=== PATIENT | female | born 2005 | race Caucasian/White ===

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

== ENCOUNTER 2024-02-02 17:42 | Emergency (ER) | payer OTHER, SELFPAY ==
[2024-02-02 17:48] VITALS: BP 134/87; PULSE 100; TEMP 36.8; O2SAT 98; BMI 19.7
--- OUTSIDE RECORDS SUMMARY | 2024-02-02 17:48 | XMS_ITS ---
Patient Summarization (C-CDA 2.1 CCD) Created on: February 02, 2024 CARLENE ALAMO~SATHYA CARLENE : 2005 Sex: Female Author Organization Sample organization Care Team Providers Care Instructional Material Director Name Role Phone DO Mathew Sandoval Primary Care Provider [phone] DO Mathew Hay Emergency Provider UnaMathew Haas Primary Care Unavailable Mathew Hay Attending Unavailable Mathew Hay Admitting Unavailable SHE RICHARDSON Attending Unavailable HEMMEHNAZ MAC Attending Unavailable SHE RICHARDSON Attending Unavailable MATHEW SANDOVAL Attending Unavailable MATHEW SANDOVAL Referring Unavailable MATHEW SANDOVAL Attending Unavailable MATHEW SANDOVAL Referring Unavailable KATHLEENBASERYLAN Grant Attending Unavailable MARGARITA HERR Attending Unavailable Allergies Allergy Classification Reported Allergen(s) Allergy Type Date of Onset Reaction(s) Facility (1 source) Amoxicillin Drug Allergy 11-14-2023 [facility] Repository Encounters Encounter Date Encounter Type Care Provider Facility Start: 01-13-2024 End: 01-13-2024 ambulatory SHE RICHARDSON Not Available Start: 01-06-2024 End: 01-06-2024 ambulatory MARGARITA HERR Not Available Start: 11-19-2023 End: 11-19-2023 ambulatory MATHEW SANDOVAL Not Available Start: 11-14-2023 End: 11-15-2023 Emergency department patient visit Mathew Sandoval Facility:[facility] Start: 11-14-2023 End: 11-15-2023 Emergency department patient visit DO Mathewcindy Sandoval Work Phone: [facility] Work Phone: Start: 10-18-2023 End: 10-18-2023 ambulatory SHE RICHARDSON Not Available Start: 10-15-2023 End: 10-15-2023 ambulatory MATHEW SANDOVAL Not Available Start: 09-07-2023 End: 09-07-2023 ambulatory MEHNAZ FIGUEROA Not Available Start: 08-29-2023 End: 08-29-2023 ambulatory SHE RICHARDSON Not Available Start: 07-31-2023 End: 07-31-2023 ambulatory RYLAN SMITH Not Available Start: 07-26-2023 End: 07-26-2023 ambulatory SHE RICHARDSON Not Available Start: 07-10-2023 End: 07-10-2023 ambulatory SHE RICHARDSON Not Available Medications Current Medications Medication Drug Class(es) Dates Sig (Normalized) Sig (Original) omeprazole 40 mg delayed release oral capsule (1 source) Proton Pump Inhibitor Start: 11-15-2023 take 40 mg by mouth once daily Omeprazole Active 40 MG PO Daily 20 November 15, 2023 12:00am promethazine hydrochloride 25 mg oral tablet (1 source) Phenothiazine Start: 11-15-2023 take 25 mg by mouth three times daily Promethazine Active 25 MG PO Three times daily 15 November 15, 2023 12:00am sucralfate 1000 mg oral tablet (1 source) Aluminum Complex Start: 11-15-2023 take 1 tablet by mouth twice daily Sucralfate (Carafate) 1 gram tablet Active 1 GM PO Twice daily 14 November 15, 2023 12:37am Payers Date Payer Category Payer Self-pay [id number] 2022 Unknown [id number] 2005 Unknown [id number] 2.16.84 [id number] 2004 Unknown [id number] 2.16.84 0.1.334286.3.579.2.9 2004 Unknown [id number] 2.16.84 0.1.617939.3.579.2.9 2004 Unknown [id number] 2.16.84 0.1.178215.3.579.2.1259 2004 Unknown [id number] 2.16.84 0.1.385679.3.579.2.1259 2004 Unknown [id number] 2.16.84 0.1.510986.3.579.2.9 2004 Unknown [id number] 2.16.840 .1.803294.3.579.2.1259 2004 Unknown [id number] 2.16.840 .1.597269.3.579.2.9 2004 Unknown [id number] 2.16.840 .1.206035.3.579.2.1259 2004 Unknown [id number] 2.16.840 .[id number] Unknown [id number] 2.16.8 [id number] Plan of Treatment Date Care Activity Detail Author Patient Education Migraines (DC) [facility] Work Phone: Patient referral [facility] Work Phone: Problems Problem Classification Problem Date Documented Da te Episodic/Chronic Headache; including migraine (1 source) Migraine; Translations: [Migraine, unspecified, not intractable, without status migrainosus] 11-15-2023 Chronic Nausea and vomiting (1 source) Nausea and vomiting; Translations: [Nausea with vomiting, unspecified] 11-15-2023 Episodic Results Test Name Value Interpretation Reference Range Facility Complete Blood Count Auto Di ffon 11-15-2023 Basophils (Bld) [#/Vol] 0.1 10*3/uL Normal 0.0-0.2 [facility] Comment on above: Result Comment: PERF ORMED BY: [address] [id number] PATHOLOGIST BRINE MIXER OPERATOR GIBRAN CHOU M.D. Performed By: #### C BC, CMP #### [facility] [address] [place], [place] [address] Basophils/100 WBC (Bld) 1.4 % Normal . F [facility] Comment on above: Performed By: #### C BC, CMP #### [facility] [address] Eosinophils (Bld) [#/Vol] 0.0 10*3/uL Normal 0.0-0.45 [facility] Comment on above: Performed By: #### C BC, CMP #### [facility] [address] [place] [address] [place] Eosinophils/100 WBC (Bld) 0.4 % Normal . [facility] Comment on above: Performed By: #### C BC, CMP #### [facility] [address] Erythrocyte distribution width (RBC) [Ratio] 14.2 % Normal 11.9-15.3 [facility] Comment on above: Performed By: #### C BC, CMP #### [address] Hematocrit (Bld) [Volume fraction] 39.5 % Normal 34.0-46.4 [facility] Comment on above: Performed By: #### C BC, CMP #### [place] [address] [place] Hemoglobin (Bld) [Mass/Vol] 12.9 g/dL Normal 11.8-15.4 [facility] Comment on above: Performed By: #### C BC, CMP #### [place] [address] [place] Lymphocytes (Bld) [#/Vol] 1.4 10*3/uL Normal 1.00-4.8 [facility] Comment on above: Performed By: #### C BC, CMP #### [place] [address] [place] Lymphocytes/100 WBC (Bld) 19.3 % Normal . [facility] Comment on above: Performed By: #### C BC, CMP #### [place] [address] [place] MCH (RBC) [Entitic mass] 28.4 pg Normal 24.7-34.3 [facility] Comment on above: Performed By: #### C BC, CMP #### [facility] [address] [place] [address] [place] MCV (RBC) [Entitic vol] 86.8 fL Normal 80-100 F [facility] Comment on above: Performed By: #### C BC, CMP #### [facility] [address] Mean Corpuscular HGB Conc 32.7 g/dL Normal 32.0-35.0 [facility] Comment on above: Performed By: #### C BC, CMP #### [facility] [address] [place] [address] [place] Monocytes (Bld) [#/Vol] 0.3 10*3/uL Normal 0.0-0.8 [facility] Comment on above: Performed By: #### C BC, CMP #### [facility] [address] Monocytes/100 WBC (Bld) 18.50 % Normal 0.00-20.00 F [facility] Comment on above: Performed By: #### C BC, CMP #### [facility] [address] [place] [address] [place] Monocytes/100 WBC (Bld) 4.0 % Normal . F [facility] Comment on above: Performed By: #### C BC, CMP #### [facility] [address] [place] [address] [place] Neutrophils (Bld) [#/Vol] 5.4 10*3/uL Normal 1.8-7.7 [facility] Comment on above: Performed By: #### C BC, CMP #### [facility] [address] [place] [address] [place] Neutrophils/100 WBC (Bld) 74.9 % Normal . [facility] Comment on above: Performed By: #### C BC, CMP #### [facility] [address] [place] [address] [place] NRBC% 0.1 /100{WBC} Normal 0-0.5 [facility] Comment on above: Performed By: #### C BC, CMP #### [place] [address] Platelet mean volume (Bld) [Entitic vol] 9.4 fL Normal 6.3-10.7 [facility] Comment on above: Performed By: #### C BC, CMP #### [facility] [address] Platelets (Bld) [#/Vol] 332 10*3/uL Normal 150-450 [facility] Comment on above: Performed By: #### C BC, CMP #### [address] RBC (Bld) [#/Vol] 4.55 10*6/uL Normal 3.60-5.00 [facility] Comment on above: Performed By: #### C BC, CMP #### [address] WBC (Bld) [#/Vol] 7.3 10*3/uL Normal 3.8-11.6 [facility] Comment on above: Performed By: #### C BC, CMP #### [address] Comprehensive Metabolic Pane sandi 11-15-2023 Albumin [Mass/Vol] 4.8 g/dL Normal 3.5-5.7 [facility] Comment on above: Performed By: #### C BC, CMP #### [address] Albumin/Globulin [Mass ratio] 1.6 {ratio} Normal [facility] Comment on above: Performed By: #### C BC, CMP #### [place] [address] [place] ALP [Catalytic activity/Vol] 53 U/L Normal 34-104 [facility] Comment on above: Performed By: #### C BC, CMP #### [address] ALT [Catalytic activity/Vol] 5 U/L Low 7-52 [facility] Comment on above: Performed By: #### C BC, CMP #### [address] [place] [address] [place] Anion gap [Moles/Vol] 14.4 mmol/L Normal 6.0-15.0 [facility] Comment on above: Performed By: #### C BC, CMP #### [facility] [address] AST [Catalytic activity/Vol] 12 U/L Low 13-39 [facility] Comment on above: Performed By: #### C BC, CMP #### [facility] [address] Bilirubin [Mass/Vol] 1.1 mg/dL High 0.3-1.0 [facility] Comment on above: Performed By: #### C BC, CMP #### [facility] [address] Calcium [Mass/Vol] 9.6 mg/dL Normal 8.6-10.3 [facility] Comment on above: Performed By: #### C BC, CMP #### [facility] [address] Chloride [Moles/Vol] 104 mmol/L Normal 98-107 [facility] Comment on above: Performed By: #### C BC, CMP #### [facility] [address] CO2 [Moles/Vol] 21.6 mmol/L Normal 21.0-31.[address] [facility] Comment on above: Performed By: #### C BC, CMP #### [facility] [address] Creatinine [Mass/Vol] 0.72 mg/dL Normal 0.60-1.20 [facility] Comment on above: Performed By: #### C BC, CMP #### [facility] [address] [place] [address] [place] Creatinine Clr Calc Pharmacy 108.52 Normal [facility] Comment on above: Result Comment: PERF ORMED BY: [place] [address] PATHOLOGIST BRINE MIXER OPERATOR GIBRAN CHOU M.D. Performed By: #### C BC, CMP #### [facility] [address] [place] [address] [place] GFR/1.73 sq M.predicted MDRD (S/P/Bld) [Vol rate/Area] mL/min/{1.73_m2} Normal [facility] Comment on above: Performed By: #### C BC, CMP #### [facility] [address] [place] [address] [place] Globulin (S) [Mass/Vol] 3.0 g/dL Normal F [facility] Comment on above: Performed By: #### C BC, CMP #### [facility] [address] Glucose [Mass/Vol] 82 mg/dL Normal 70-100 [facility] Comment on above: Result Comment: [facility] Glucose Reference Range is dependent on time and content of last meal. Glucose of more than 200 mg/dL in a nonstressed, ambulatory subject supports the diagnosis of Diabetes Mellitus. ADA recommended reference range Performed By: #### C BC, CMP #### [address] Potassium [Moles/Vol] 4.0 mmol/L Normal 3.5-5.1 [facility] Comment on above: Performed By: #### C BC, CMP #### [address] Protein [Mass/Vol] 7.8 g/dL Normal 6.4-8.9 [facility] Comment on above: Performed By: #### C BC, CMP #### [facility] [address] [place] [address] [place] Sodium [Moles/Vol] 136 mmol/L Normal 136-145 [facility] Comment on above: Performed By: #### C BC, CMP #### [facility] [address] [place] [address] [place] Urea nitrogen [Mass/Vol] 11 mg/dL Normal 7-25 [facility] Comment on above: Performed By: #### C BC, CMP #### [facility] [address] [place] [address] [place] Dipstick and Microscopicon 0 11-15-2023 Appearance (U) Clear Normal Clear [facility] Comment on above: Order Comment: Name Collection Type:: Clean-Voided Midstream Performed By: #### A DDONUAPLUS, UHCG #### [place] [address] [place] Bacteria,Urine None Seen Normal None Seen [facility] Comment on above: Order Comment: Name Collection Type:: Clean-Voided Midstream Performed By: #### A DDONUAPLUS, UHCG #### [place] [address] [place] Bilirubin,Urine Negative Normal Negative [facility] Comment on above: Order Comment: Name Collection Type:: Clean-Voided Midstream Performed By: #### A DDONUAPLUS, UHCG #### [place] [address] [place] Color (U) Yellow Normal Yellow [facility] Comment on above: Order Comment: Name Collection Type:: Clean-Voided Midstream Performed By: #### A DDONUAPLUS, UHCG #### [place] [address] [place] Glucose Ql (U) Normal Normal Normal [facility] Comment on above: Order Comment: Name Collection Type:: Clean-Voided Midstream Performed By: #### A DDONUAPLUS, UHCG #### [place] [address] [place] Ketones Ql (U) 4+ High Negative [facility] Comment on above: Order Comment: Name Collection Type:: Clean-Voided Midstream Performed By: #### A DDONUAPLUS, UHCG #### [place] [address] [place] Leukocyte esterase Test strip Ql (U) Negative Normal Negative [facility] Comment on above: Order Comment: Name Collection Type:: Clean-Voided Midstream Performed By: #### A DDONUAPLUS, UHCG #### [place] [address] [place] Nitrite,Urine Negative Normal Negative [facility] Comment on above: Order Comment: Name Collection Type:: Clean-Voided Midstream Performed By: #### A DDONUAPLUS, UHCG #### [address] Occult Blood,Urine 2+ High Negative [facility] Comment on above: Order Comment: Name Collection Type:: Clean-Voided Midstream Performed By: #### A DDONUAPLUS, UHCG #### [address] pH (U) 6.0 [pH] Normal 5.0-9.0 [facility] Comment on above: Order Comment: Name Collection Type:: Clean-Voided Midstream Performed By: #### A DDONUAPLUS, UHCG #### [address] Protein,Urine Negative Normal Negative [facility] Comment on above: Order Comment: Name Collection Type:: Clean-Voided Midstream Performed By: #### A DDONUAPLUS, UHCG #### [address] RBC,Urine 10-19 High 0-4 [facility] Comment on above: Order Comment: Name Collection Type:: Clean-Voided Midstream Performed By: #### A DDONUAPLUS, UHCG #### [address] Specificy [place],Urine 1.026 Normal 1.001-1.030 [facility] Comment on above: Order Comment: Name Collection Type:: Clean-Voided Midstream Performed By: #### A DDONUAPLUS, UHCG #### [address] Squamous Epithelial Cell,Urine 1-2 Normal 0-2 [facility] Comment on above: Order Comment: Name Collection Type:: Clean-Voided Midstream Performed By: #### A DDONUAPLUS, UHCG #### [address] Urobilinogen,Urine Normal Normal Normal [facility] Comment on above: Order Comment: Name Collection Type:: Clean-Voided Midstream Performed By: #### A DDONUAPLUS, [facility] #### [address] WBC LM.HPF (Urine sed) [#/Area] 0 /[HPF] Normal 0-4 [facility] Comment on above: Order Comment: Name Collection Type:: Clean-Voided Midstream Performed By: #### A DDONUAPLUS, [facility] #### [address] ECG 12 lead ECGon 11-15-2023 ECG 12 lead ECG [facility] Main [place] [address] [place] [address] Electrocardiograph Report Signed Patient: Carlene Alamo MR#: [id number] 69 : 2005 Acct:[id number] Age/Sex: 18 / F ADM Date: 11/14/23 Loc: ER Room: Type: [facility] ER Attending Dr: Ordering Provider: Mathew Hay DO Date of Service: 11/14/23 ECG/ECG 12 lead ECG: Nausea/Vomiting/Diar pepe Copies to: Test Reason : Blood Pressure : 156/079 mmHG Vent. Rate : 105 BPM Atrial Rate : 105 BPM P-R Int : 124 ms QRS Dur : 076 ms QT Int : 340 ms P-R-T Axes : 072 083 051 degrees QTc Int : 449 ms Sinus tachycardia Confirmed by Mathew Hay DO ([id number]) on 11/15/2023 12:55:57 AM Referred By: Electronically Signed By:Mathew Hay DO Transcribed By: MUS Signed By Mathew Hay DO [id number] Normal [facility] HCG,Urineon 11-15-2023 Beta HCG ( test) Ql (U) Negative Normal [facility] Comment on above: Order Comment: Name Collection Type:: Clean-Voided Midstream Result Comment: PERF ORMED BY: [place] [address] PATHOLOGIST BRINE MIXER OPERATOR GIBRAN CHOU M.D. Performed By: #### A DDONUAPLUS, [facility] #### [facility] [address] Alanine aminotransferase [En zymatic activity/volume] in Serum or PlasmaOrdered By: PROVIDER TEMP on 11-14-2023 ALT [Catalytic activity/Vol] 5 U/L 7-52 [facility] Albumin [Mass/volume] in Ser um or Plasma by Bromocresol green (BCG) dye binding methoOrdered By: PROVIDER TEMP on 11-14-2023 Albumin BCG dye [Mass/Vol] 4.8 g/dL 3.5-5.7 [facility] Alkaline phosphatase [Enzyma tic activity/volume] in Serum or PlasmaOrdered By: PROVIDER TEMP on 11-14-2023 ALP [Catalytic activity/Vol] 53 U/L 34-104 [facility] Aspartate aminotransferase [ Enzymatic activity/volume] in Serum or PlasmaOrdered By: PROVIDER TEMP on 11-14-2023 AST [Catalytic activity/Vol] 12 U/L 13-39 [facility] Automated epithelial cells c ount in urine sediment (number/area)Ordered By: Mathew Hay on 11-14-2023 Epithelial cells Auto (Urine sed) [#/Area] 1-2 [HPF] 0-2 [facility] Automated erythrocytes count in urine sediment (number/area)Ordered By: Mathew Hay on 11-14-2023 RBC Auto (Urine sed) [#/Area] 10-19 [HPF] 0-4 [facility] Automated leukocytes count i n urine sediment (number/area)Ordered By: Mathew Hay on 11-14-2023 WBC Auto (Urine sed) [#/Area] 0-1 [HPF] 0-4 [facility] Basophils Auto (Bld) [#/Vol] Ordered By: PROVIDER TEMP on 11-14-2023 Basophils (Bld) [#/Vol] 0.1 10*3/uL 0.0-0.2 [facility] Basophils/100 WBC Auto (Bld) Ordered By: PROVIDER TEMP on 11-14-2023 Basophils/100 WBC (Bld) 1.4 % . F [facility] Bilirubin Test strip Ql (U)O rdered By: Mathew Hay on 11-14-2023 Bilirubin Ql (U) Negative Negative [facility] Bilirubin.total [Mass/volume ] in Serum or PlasmaOrdered By: PROVIDER TEMP on 11-14-2023 Bilirubin [Mass/Vol] 1.1 mg/dL 0.3-1.0 [facility] Calcium [Mass/volume] in Ser um or PlasmaOrdered By: PROVIDER TEMP on 11-14-2023 Calcium [Mass/Vol] 9.6 mg/dL 8.6-10.3 [facility] Carbon dioxide, total [Moles /volume] in Serum or PlasmaOrdered By: PROVIDER TEMP on 11-14-2023 CO2 [Moles/Vol] 21.6 mmol/L 21.0-31.[address] [facility] Chloride [Moles/volume] in S edy or PlasmaOrdered By: PROVIDER TEMP on 11-14-2023 Chloride [Moles/Vol] 104 mmol/L 98-107 [facility] Color Auto (U)Ordered By: Zuleima Hay on 11-14-2023 Color (U) Yellow Yellow [facility] Creatinine [Mass/volume] in Serum or PlasmaOrdered By: PROVIDER TEMP on 11-14-2023 Creatinine [Mass/Vol] 0.72 mg/dL 0.60-1.20 [facility] Eosinophils Auto (Bld) [#/Vo l]Ordered By: PROVIDER TEMP on 11-14-2023 Eosinophils (Bld) [#/Vol] 0.0 10*3/uL 0.0-0.45 [facility] Eosinophils/100 WBC Auto (Bl d)Ordered By: PROVIDER TEMP on 11-14-2023 Eosinophils/100 WBC (Bld) 0.4 % . [facility] Erythrocyte distribution wid th Auto (RBC) [Ratio]Ordered By: PROVIDER TEMP on 11-14-2023 Erythrocyte distribution width (RBC) [Ratio] 14.2 % 11.9-15.3 [facility] Globulin Calc (S) [Mass/Vol] Ordered By: PROVIDER TEMP on 11-14-2023 Globulin (S) [Mass/Vol] 3.0 g/dL F [facility] Glucose [Mass/volume] in Ser um or PlasmaOrdered By: PROVIDER TEMP on 11-14-2023 Glucose [Mass/Vol] 82 mg/dL 70-100 [facility] Comment on above: ADA recommended refe rence rangeRandom Glucose Reference Range is dependent on time and content of last meal. Glucose of more than 200 mg/dL in a nonstressed, ambulatory subject supports the diagnosis of Diabetes Mellitus. HCG ( test) IA.rapi d Ql (U)Ordered By: PROVIDER TEMP on 11-14-2023 HCG ( test) Ql (U) Negative [facility] Hematocrit Auto (Bld) [Volum e fraction]Ordered By: PROVIDER TEMP on 11-14-2023 Hematocrit (Bld) [Volume fraction] 39.5 % 34.0-46.4 [facility] Hemoglobin [Mass/volume] in BloodOrdered By: PROVIDER TEMP on 11-14-2023 Hemoglobin (Bld) [Mass/Vol] 12.9 g/dL 11.8-15.4 [facility] Ketones Auto test strip (U) [Mass/Vol]Ordered By: Mathew Hay on 11-14-2023 Ketones (U) [Mass/Vol] 4+ Negative Fi [facility] Leukocytes [#/volume] correc lou for nucleated erythrocytes in Blood by Automated counOrdered By: PROVIDER TEMP on 11-14-2023 WBC corrected for nucl RBC Auto (Bld) [#/Vol] 7.3 10*3/uL 3.8-11.6 [facility] Lymphocytes Auto (Bld) [#/Vo l]Ordered By: PROVIDER TEMP on 11-14-2023 Lymphocytes (Bld) [#/Vol] 1.4 10*3/uL 1.00-4.8 [facility] Lymphocytes/100 WBC Auto (Bl d)Ordered By: PROVIDER TEMP on 11-14-2023 Lymphocytes/100 WBC (Bld) 19.3 % . [facility] MCH Auto (RBC) [Entitic mass ]Ordered By: PROVIDER TEMP on 11-14-2023 MCH (RBC) [Entitic mass] 28.4 pg 24.7-34.3 [facility] MCHC Auto (RBC) [Mass/Vol]Or dered By: PROVIDER TEMP on 11-14-2023 MCHC (RBC) [Mass/Vol] 32.7 g/dL 32.0-35.0 [facility] MCV Auto (RBC) [Entitic vol] Ordered By: PROVIDER TEMP on 11-14-2023 MCV (RBC) [Entitic vol] 86.8 fL 80-100 F [facility] Monocyte distribution width [Entitic volume] in Blood by AutomatedOrdered By: PROVIDER TEMP on 11-14-2023 Monocyte distribution width Auto (Bld) [Entitic vol] 18.50 % 0.00-20.00 [facility] Monocytes Auto (Bld) [#/Vol] Ordered By: PROVIDER TEMP on 11-14-2023 Monocytes (Bld) [#/Vol] 0.3 10*3/uL 0.0-0.8 [facility] Monocytes/100 WBC Auto (Bld) Ordered By: PROVIDER TEMP on 11-14-2023 Monocytes/100 WBC (Bld) 4.0 % . F [facility] Neutrophils Auto (Bld) [#/Vo l]Ordered By: PROVIDER TEMP on 11-14-2023 Neutrophils (Bld) [#/Vol] 5.4 10*3/uL 1.8-7.7 [facility] Neutrophils/100 WBC Auto (Bl d)Ordered By: PROVIDER TEMP on 11-14-2023 Neutrophils/100 WBC (Bld) 74.9 % . [facility] Nitrite Test strip Ql (U)Ord ered By: Mathew Hay on 11-14-2023 Nitrite Ql (U) Negative Negative [facility] No Panel InformationOrdered By: PROVIDER TEMP on 11-14-2023 Estimated GFR (CKD-EPI) > 60.0 mL/Min [facility] Creatinine Clearance (Chem 108.52 [facility] Nucleated erythrocytes [Pres ence] in Blood by Automated countOrdered By: PROVIDER TEMP on 11-14-2023 Nucleated RBC Auto Ql (Bld) 0.1 /100{WBC} 0-0.5 [facility] Platelet mean volume Auto (B ld) [Entitic vol]Ordered By: PROVIDER TEMP on 11-14-2023 Platelet mean volume (Bld) [Entitic vol] 9.4 fL 6.3-10.7 [facility] Platelets Auto (Bld) [#/Vol] Ordered By: PROVIDER TEMP on 11-14-2023 Platelets (Bld) [#/Vol] 332 10*3/uL 150-450 [facility] Potassium [Moles/volume] in Serum or PlasmaOrdered By: PROVIDER TEMP on 11-14-2023 Potassium [Moles/Vol] 4.0 mmol/L 3.5-5.1 [facility] Protein Auto test strip (U) [Mass/Vol]Ordered By: Mathew Hay on 11-14-2023 Protein (U) [Mass/Vol] Negative Negative [facility] Protein [Mass/volume] in Ser um or PlasmaOrdered By: PROVIDER TEMP on 11-14-2023 Protein [Mass/Vol] 7.8 g/dL 6.4-8.9 [facility] RBC Auto (Bld) [#/Vol]Ordere d By: PROVIDER TEMP on 11-14-2023 RBC (Bld) [#/Vol] 4.55 10*6/uL 3.60-5.00 [facility] Serum or plasma albumin/glob ulin mass ratioOrdered By: PROVIDER TEMP on 11-14-2023 Albumin/Globulin [Mass ratio] 1.6 {ratio} [facility] Serum or plasma anion gap de terminationOrdered By: PROVIDER TEMP on 11-14-2023 Anion gap [Moles/Vol] 14.4 mmol/L 6.0-15.0 [facility] Sodium [Moles/volume] in Ser um or PlasmaOrdered By: PROVIDER TEMP on 11-14-2023 Sodium [Moles/Vol] 136 mmol/L 136-145 [facility] Specific gravity Auto test s trip (U) [Rel density]Ordered By: Mathew Hay on 11-14-2023 Specific gravity (U) [Rel density] 1.026 1.001-1.030 [facility] Urea nitrogen [Mass/volume] in Serum or PlasmaOrdered By: PROVIDER TEMP on 11-14-2023 Urea nitrogen [Mass/Vol] 11 mg/dL 7-25 [facility] Urine bacteria detection by automated methodOrdered By: Mathew Hay on 11-14-2023 Bacteria Auto Ql (U) None seen None Seen [facility] Urine clarity by refractomet ry automatedOrdered By: Mathew Hay on 11-14-2023 Clarity Refractometry automated (U) Clear Clear [facility] Urine glucose measurement by automated test strip (mass/volume)Ordered By: Mathew Hay on 11-14-2023 Glucose Auto test strip (U) [Mass/Vol] Normal mg/dL Normal [facility] Urine hemoglobin detection b y automated test stripOrdered By: Mathew Hay on 11-14-2023 Hemoglobin Auto test strip Ql (U) 2+ Negative [facility] Urine leukocyte esterase det ection by automated test stripOrdered By: Mathew Hay on 11-14-2023 Leukocyte esterase Auto test strip Ql (U) Negative Negative [facility] Urobilinogen Auto test strip (U) [Mass/Vol]Ordered By: Mathew Hay on 11-14-2023 Urobilinogen (U) [Mass/Vol] Normal mg/dL Normal [facility] WBC Auto (Bld) [#/Vol]Ordere d By: PROVIDER TEMP on 11-14-2023 WBC (Bld) [#/Vol] 7.3 10*3/uL 3.8-11.6 [facility] pH Auto test strip (U)Ordere d By: Mathew Hay on 11-14-2023 pH (U) 6.0 [pH] 5.0-9.0 [facility] US Thyroidon 03-07-2022 US Thyroid EXAM: Please note that characterization of thyroid nodules is based on the ACR 2017 TI-RADS classification which provides guidelines regarding management of thyroid nodules on the basis of their ultrasound appearance. These are offered in an attempt to assist the referring physician in their decision process and help address the current over diagnosis of thyroid cancer. It should be noted that the [place] Preventative Services Task Force concludes that screening for thyroid cancer results in harms that outweighed the benefits and recommends against screening for thyroid cancer in asymptomatic adults. RECOMMENDATIONS: TR1: Benign. No FNA required TR2: Not suspicious. No FNA required TR3: Greater than or equal to 1.5 cm, follow-up 1, 3, and 5 years. Greater than or equal to 2.5 cm: FNA TR 4: Greater than or equal to 1 cm, follow-up: 1, 2, 3, and 5 years. Greater than or equal to 1.5 cm: FNA. TR 5: Greater than or equal to 0.5 cm, annual follow-up for up to 5 years. Greater than or equal to 1 cm: FNA. CLINICAL HISTORY: Enlarged thyroid gland. History of thyroid medication. COMPARISONS: None FINDINGS: Biplanar images were obtained. The right lobe measures 4.3 cm. The left lobe measures 3.9 cm. The isthmus measures 0.2 cm Thyroid gland is Normal in size Right thyroid lobe: Thyroid parenchyma is mildly heterogeneous without a discrete thyroid nodule Left thyroid lobe: Left thyroid nodule is slightly heterogeneous in composition without any definite discrete thyroid nodule. IMPRESSION: Normal size thyroid gland with heterogeneous composition. Report reported and signed by Giorgi Monroy on 03/07/2022 1037 Normal [facility] TSH w/ Reflex to Free T4on 1 10-17-2020 TSH 0.633 uIU/mL Normal 0.400-4.500 [facility] Comment on above: Performed By: #### T SH reflex FT4 #### [facility] [address] [place], [place] [id number] Social History Date Type Detail Facility Start: 11-14-2023 Tobacco smoking stat us HIIS Never smoked tobacco (finding) [facility] Start: 2005 Sex Assigned At Female F [facility] Vital Signs Date Time Vital Sign Value Performing Clinician Faci lity 11-15-2023 00:56-0400 Diastolic blood pressure 60 mm[Hg] DO Mathew Sandoval Work Phone: [facility] 11-15-2023 00:56-0400 Heart rate 95 /min DO Mathew Sandoval Work Phone: [facility] 11-15-2023 00:56-0400 Respiratory rate 16 /min DO Mathew Sandoval Work Phone: [facility] 11-15-2023 00:56-0400 SaO2% (BldA) [Mass fraction] 99 % DO Mathew Sandoval Work Phone: [facility] 11-15-2023 00:56-0400 Systolic blood pressure 109 mm[Hg] DO Mathew Sandoval Work Phone: [facility] 11-14-2023 23:42-0400 Body temperature 98.2 [degF] DO Mathew Sandoval Work Phone: [facility] 11-14-2023 19:24-0400 Body height 162.56 cm DO Mathew Sandoval Work Phone: [facility] 11-14-2023 19:24-0400 Body weight 54.7 kg DO Mathew Sandoval Work Phone: [facility] Evaluation note Note Date & Type Note Facility Evaluation note No assessment information availa ble [facility] Work Phone: Hospital Discharge instructions Note Date & Type Note Facility Hospital Discharge instructions Additional Instructions Take Phenergan as prescribed for nausea vomiting. Increase your intake of fluids and rest. Take Carafate and omeprazole as prescribed. He can take Tylenol as needed for recurrent headache. Follow-up with neurologist below regarding your frequent migraines. Follow-up with the PCP for any persistent symptoms 5 to 7 days. [facility] Work Phone: Summary Purpose Family History No Family History Records FoundNo Family History Records FoundNo Family History Records Found Advance Directives No Advanced Directives Records Found Advance Directive Response Recorded Date/ Time Advance Directives No June 19, 2021 2:05pm Chief Complaint and Reason for Visit Chief Complaint vomiting blood Additional Source Comments INFORMATION SOURCE (unrecogn ized section and content) DATE CREATED AUTHOR 03/13/2022 [facility] dical Specialist DATE CREATED AUTHOR AUTHOR'S ORGANIZ ATION 11/16/2023 [facility] DATE CREATED AUTHOR AUTHOR'S ORGANIZ ATION 01/15/2024 [facility] dical Specialists EPIC Care Teams (unrecognized sec tion and content) Team Status: Active Member Role Status Dates Mathew Sandoval DO Primary Care Provider Active Team Status: Inactive Member Role Status Dates Mathew Sandoval DO Primary Care Provider Active Start: November 14, 2023 End: November 15, 2023 Mathew Hay DO Emergency Provider Active Start: November 14, 2023 End: November 15, 2023 Goals (unrecognized section and content) Goals may be documented in a n alternate section FOR RECORDS PERTAINING TO PATIENTS WHO ARE OR HAVE BEEN ENROLLED IN A CHEMICAL DEPENDENCY/SUBSTANCEABUSE PROGRAM, SOME INFORMATION MAY BE OMITTED. This clinical summary was aggregated from multiple sources. Caution should be exercised in using it in the provision of clinical care. This summary normalizes information from multiple sources, and as a consequence, information in this document may materially change the coding, format and clinical context of patient data. In addition, data may be omitted in some cases. CLINICAL DECISIONS SHOULD BE BASED ON THE PRIMARY CLINICAL RECORDS. [facility] [employer] [facility]. provides no warranty or guarantee of the accuracy or completeness of information in this document.
--- NOTE | 2024-02-02 18:07 | CT_ITS ---
[address] [address] Patient Name: PANCHO MCDONNELL MRN: [id number] date: 2005 Sex: F Assigned Patient Location: ER Current Patient Location: ER Accession/Order Number: [id number] Exam Date: 02/02/2024 18:45 Report Date: 02/02/2024 19:55 At the request of: JASS BUSTAMANTE Procedure: CT cervical spine wo con EXAM: CT cervical spine wo con COMPARISON: None available. CLINICAL INDICATION: headache TECHNIQUE: Multiplanar CT images of the cervical spine without contrast. Dose reduction techniques were achieved by using automated exposure control and/or adjustment of mA and/or kV according to patient size and/or use of iterative reconstruction technique. FINDINGS: No evidence of acute osseous abnormality. No prevertebral soft tissue swelling. No spondylolisthesis. No significant degenerative change. No evidence of spinal canal or foraminal stenosis. No acute findings in the visualized upper chest. CT/CT cervical spine wo con IMPRESSION: 1. No evidence of acute osseous abnormality. 2. No spinal canal or foraminal stenosis. Electronically authenticated by: DAVID VAUGHN Date: 02/02/2024 19:55
--- NOTE | 2024-02-02 18:07 | CT_ITS ---
The [address] [address] Patient Name: PANCHO MCDONNELL MRN: [id number] date: 2005 Sex: F Assigned Patient Location: ED.MAIN Current Patient Location: ER Accession/Order Number: [id number] Exam Date: 02/02/2024 18:45 Report Date: 02/02/2024 19:52 At the request of: JASS BUSTAMANTE Procedure: CT head/brain wo con CLINICAL HISTORY: headache. EXAMINATION: Unenhanced CT scan of the brain: 02/02/2024. COMPARISON: None. TECHNIQUE: 3 mm axial images from skull base through vertex without intravenous contrast were obtained. Sagittal and coronal reconstructions were also performed. FINDINGS: The visualized intraorbital contents appear normal. There is no mass, mass effect or midline shift. There is normal differentiation of white and jimenez matter. There is no intra or extra-axial hemorrhage. Ventricles, sulcal and cisternal spaces seem normal. The visualized paranasal sinuses and mastoid air cells appear normal. The calvarium appears intact. CT/CT head/brain wo con IMPRESSION: No acute infarct, hemorrhage or acute intracranial process to explain patient's symptoms. Electronically authenticated by: DINA JANSEN Date: 02/02/2024 19:52
--- NOTE | 2024-02-02 18:09 | ED.GENADUL1 ---
HPI HPI - General Adult General Chief complaint: Headache Stated complaint: Headache Time Seen by Provider: 02/02/24 18:01 Source: patient Mode of arrival: walk-in Limitations: no limitations History of Present Illness HPI narrative: Patient is a 18-year-old female who presents to the emergency department for the evaluation of a right posterior headache radiating into the right Side of the neck. She states the headache started yesterday and has been constant. She has a history of headaches, she is on Topamax at home. She states she saw a local neurology 1 time and typically her PCP manages her headaches. This does feel similar to previous. She has never had imaging of the head or neck. She states earlier today her left foot seemed mildly numb but this has resolved. She has no concern for . She denies fevers, Upper respiratory symptoms. She had an episode of emesis earlier today. She has not taken any medications prior to arrival. Related Data Home Medications ?Medication ?Instructions ?Recorded ?Confirmed desogestrel 0.15 mg-ethinyl 1 tab PO DAILY 11/08/23 11/08/23 estradiol 0.03 mg tablet (Enskyce) medroxyprogesterone 150 mg/mL 150 mg IM .[id number] 11/08/23 11/08/23 intramuscular suspension topiramate 25 mg tablet 25 mg PO DAILY 11/08/23 11/08/23 Previous Rx's ?Medication ?Instructions ?Recorded ondansetron 4 mg disintegrating 4 mg PO TID PRN nausea and 11/08/23 tablet vomiting 3 days #10 tabs ketorolac 10 mg tablet 10 mg PO TID PRN pain #10 tabs 02/02/24 methocarbamol 750 mg tablet 750 mg PO TID PRN pain #20 tabs 02/02/24 ondansetron 4 mg disintegrating 4 mg PO Q6H PRN nausea and 02/02/24 tablet vomiting #12 tabs Allergies Allergy/AdvReac Type Severity Reaction Status Date / Time Penicillins AdvReac Mild Verified 02/02/24 17:48 Opioid HPI Opioid Management Most Recent Opioid Data: Last Pain Scale 4 11/08/23 18:11 Review of Systems ROS Constitutional Denies: fever or chills Eyes Denies: change in vision Ears, nose, mouth, and throat Reports: neck pain; Denies: throat pain or nasal congestion Cardiovascular Denies: chest pain Respiratory Denies: shortness of breath or cough Gastrointestinal Reports: nausea and vomiting; Denies: abdominal pain or diarrhea Musculoskeletal Reports: neck pain; Denies: back pain Integumentary/Breast Denies: rash Neurological Reports: headache Hematologic/Lymphatic Denies: easy bruising or easy bleeding Exam Narrative Exam Narrative: Gen.: Awake, alert, in no distress Head: Normocephalic, atraumatic ENT: Moist mucous membranes, No nuchal rigidity Respiratory: No respiratory distress Extremities: Moves extremities equally Psych: Normal mood and affect Neuro: No focal neuro deficit Skin: Warm, dry, intact Constitutional Vital Signs, click to edit/add: Last Vital Signs Temp 98.2 F 02/02/24 17:48 Pulse 76 02/02/24 19:44 Resp 16 02/02/24 19:44 BP 130/78 02/02/24 19:44 Pulse Ox 99 02/02/24 19:44 O2 Del Method Room Air 02/02/24 17:48 Course Vital Signs Vital signs: Vital Signs Temperature 98.2 F 02/02/24 17:48 Pulse Rate 100 H 02/02/24 17:48 Respiratory Rate 14 02/02/24 17:48 Blood Pressure 134/87 02/02/24 17:48 Pulse Oximetry 98 02/02/24 17:48 Oxygen Delivery Method Room Air 02/02/24 17:48 Temperature 98.2 F 02/02/24 17:48 Pulse Rate 76 02/02/24 19:44 Respiratory Rate 16 02/02/24 19:44 Blood Pressure 130/78 02/02/24 19:44 Pulse Oximetry 99 02/02/24 19:44 Oxygen Delivery Method Room Air 02/02/24 17:48 Medical Decision Making MDM Narrative Medical decision making narrative: Patient has never had imaging before of her head. CT of the C-spine and head are unremarkable. She was medicated with IV fluids, Reglan, Benadryl, Norflex and pain is 1/10 on reevaluation by attending physician. She is discharged home with Robaxin, Toradol, Zofran. Follow-up PCP and return to the ER if symptoms change or worsen Medical Records Medical records reviewed: Yes I reviewed the patient's medical records Imaging Data CT scan - head: Attestation: I have reviewed the pertinent imaging results. Radiologist's impression: ITS Impressions Cervical Spine CT 02/02/24 18:07 IMPRESSION: 1. No evidence of acute osseous abnormality. 2. No spinal canal or foraminal stenosis. Electronically authenticated by: DAVID VAUGHN Date: 02/02/2024 19:[address] 02/02/24 18:07 IMPRESSION: No acute infarct, hemorrhage or acute intracranial process to explain patient's symptoms. Electronically authenticated by: DINA JANSEN Date: 02/02/2024 19:52 Discharge Plan Discharge Stand Alone Forms: Portal Instructions Chief Complaint: Headache Clinical Impression: Headache Patient Disposition: Home, Self-Care Time of Disposition Decision: 20:13 Condition: Good Prescriptions / Home Meds: New ketorolac 10 mg tablet 10 mg PO TID PRN (Reason: pain) Qty: 10 0RF methocarbamol 750 mg tablet 750 mg PO TID PRN (Reason: pain) Qty: 20 0RF ondansetron 4 mg tablet,disintegrating 4 mg PO Q6H PRN (Reason: nausea and vomiting) Qty: 12 0RF No Action topiramate 25 mg tablet 25 mg PO DAILY desogestrel-ethinyl estradiol [Enskyce] 0.15-0.03 mg tablet 1 tab PO DAILY medroxyprogesterone 150 mg/mL suspension 150 mg IM .[id number] ondansetron 4 mg tablet,disintegrating 4 mg PO TID PRN (Reason: nausea and vomiting) 3 Days Qty: 10 0RF Print Language: Citizen Of [place] Instructions: Acute Headache (ED) Referrals: MATHEW KURTZ [Primary Care Provider] - 1 week
[2024-02-02] MEDS: DIPHENHYDRAMINE HCL 50 MG/ML VIAL 25 MG IV (18:20)
[2024-02-02] MEDS: ORPHENADRINE 60 MG/ 2 ML VIAL IV (18:20)
[2024-02-02] MEDS: METOCLOPRAMIDE HCL 10 MG/2 ML VIAL IVP (18:20)
[2024-02-02 19:44] VITALS: BP 130/78; PULSE 76; O2SAT 99
[2024-02-02 20:25] VITALS: BP 128/80; PULSE 80; O2SAT 99
== END 2024-02-02 20:25 | disposition home or self-care (01) ==
PROVIDERS: Emergency Provider Emergency Medicine; PCP Family Medicine
DX: R51.9 Headache, unspecified (principal); M54.2 Cervicalgia; R11.2 Nausea with vomiting, unspecified
CPT/HCPCS: 70450; 72125; 96374; 96375; 99285

== ENCOUNTER 2024-07-27 13:45 | Outpatient (OUT) | payer OTHER, SELFPAY ==
--- NOTE | 2024-07-27 13:48 | US_ITS ---
[address] [address] Patient Name: PANCHO MCDONNELL MRN: [id number] date: 2005 Sex: F Assigned Patient Location: [facility] Current Patient Location: Accession/Order Number: [id number] Exam Date: 07/27/2024 13:48 Report Date: 07/28/2024 04:51 At the request of: KARON JARA Procedure: US pelvis transvaginal EXAMINATION: US pelvis transvaginal HISTORY: IUD PLACEMENT ; cramping, constant bleeding COMPARISON: Ultrasound pelvis 02/06/2023 TECHNIQUE: Transabdominal and/or transvaginal sonographic examination was performed as indicated by examination type. FINDINGS: UTERUS: Normal size and appearance. Uterus size: 7.1 x 3.5 x 4.8 cm. ENDOMETRIUM: IUD within endometrial cavity. Normal homogeneous appearance of endometrium. Endometrial thickness: 5 mm RIGHT OVARY: Normal size and appearance. Duplex Doppler demonstrates normal waveform and flow; resistive index 0.6. Ovary size: 2.1 x 1.0 x 2.0 cm LEFT OVARY: Normal size and appearance. Blood flow present within ovary on color Doppler. . Ovary size: 2.8 x 1.6 x 2.1 cm CUL-DE-SAC: Unremarkable. No significant free fluid. BLADDER: Unremarkable. OTHER: None. US/US pelvis transvaginal IMPRESSION: 1. IUD within endometrial cavity without suspicious abnormality to account for patient's symptoms. Electronically authenticated by: SUPA QUINN Date: 07/28/2024 04:51
--- OUTSIDE RECORDS SUMMARY | 2024-07-27 13:58 | XMS_ITS | CCD ---
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 Role Phone DO Mathew Kurtz Primary Care Provider [phone] DO Mathew Hawley Emergency Provider Unavai Mathew Rodriguez Primary Care Unavailable Mathew Hawley Attending Unavailable Mathew Hawley Admitting Unavailable PetMathew ferrell DO Primary Care Provider PetznMathew lambert DO Unavailable [phone] SHE RICHARDSON Attending Unavailable MEHNAZ FIGUEROA Attending Unavailable MATHEW KURTZ Attending Unavailable MATHEW KURTZ Referring Unavailable MATHEW KURTZ Attending Unavailable MATHEW KURTZ Referring Unavailable MARGARITA KANG Attending Unavailable RYLAN SMITH Attending Unavailable MARGARITA KANG Attending Unavailable CRISTINA OTTO Attending Unavailable MATHEW KURTZ Attending Unavailable KARON QUIROGA Attending Unavailable MARGARITA KANG Attending Unavailable KARON QUIROGA Attending Unavailable KARON QUIROGA Attending Unavailable Allergies Allergy Classification Reported Allergen(s) Allergy Type Date of Onset Reaction(s) Facility (1 source) Amoxicillin Drug Allergy 11-14-19 24 [facility] Repository (5 sources) almond allergenic extract Drug Allergy 02-13-20 GI intolerance [facility] Healthcare (5 sources) Amoxicillin Drug Allergy 11-14-19 Rash [facility] Healthcare (5 sources) Benzathine penicillin - chemical Propensity to adverse reactions 01-29-20 [facility] Healthcare (5 sources) Cyproheptadine Drug Allergy 02-13-20 23 Other [facility] Healthcare (5 sources) Penicillins Propensity to adverse reactions 04-24-20 23 Rash [facility] Healthcare Medications Current Medications Medication Drug Class(es) Dates Sig (Normalized) Sig (Original) imipramine hydrochloride 25 mg oral tablet (5 sources) Tricyclic Antidepressant take 1 tablet by mouth at bedtime imipramine (Tofranil) 25 MG tablet Take 25 mg by mouth at bedtime Active levonorgestrel 0.055965 mg/hr intrauterine system (4 sources) Progestin, Progestin-containin g Intrauterine Device Start: 07-13-2024 End: 07-12-2029 Levonorgestrel intrauterine device 52 mg Start: 07-13-2024 End: 07-13-2024 Levonorgestrel intrauterine device Start: 07-13-2024 End: 07-13-2024 Once PRN Procedure, Starting on 07/13/24 at 1030, For 1 dose levothyroxine sodium 0.112 mg oral tablet (5 sources) l-Thyroxine Start: 05-05-2024 End: 05-05-2025 take 1 tablet by mouth before mealtime levothyroxine (Synthroid) 112 MCG tablet Indications: Alba's disease (CMS/HCC) Take 1 tablet (112 mcg) by mouth in the morning. Take before meals. 90 tablet 05/05/2024 05/05/2025 Active omeprazole 40 mg delayed release oral capsule (1 source) Proton Pump Inhibitor Start: 11-15-2023 take 40 mg by mouth once daily Omeprazole Active 40 MG PO Daily November 15, 2023 12:00am ondansetron 4 mg disintegrating oral tablet (5 sources) Serotonin-3 Receptor Antagonist Start: 02-03-2024 ondansetron ODT (Zofran-ODT) 4 MG disintegrating tablet DISSOLVE 1 TABLET ON THE TONGUE EVERY 6 HOURS NEEDED FOR NAUSEA AND VOMITING 02/03/2024 Active promethazine hydrochloride 25 mg oral tablet (1 source) Phenothiazine Start: 11-15-2023 take 25 mg by mouth three times daily Promethazine Active 25 MG PO Three times daily 15 5 November 15, 2023 12:00am sucralfate 1000 mg oral tablet (1 source) Aluminum Complex Start: 11-15-2023 take 1 tablet by mouth twice daily Sucralfate (Carafate) 1 gram tablet Active 1 GM PO Twice daily 14 7 November 15, 2023 12:37am ubrogepant 100 mg oral tablet (2 sources) Start: 05-18-2024 End: 06-17-2024 Ubrelvy 100 MG tablet 06/15/2024 Active Completed/Discontinued Medications Medication Drug Class(es) Dates Sig (Normalized) Sig (Original) 21 day ethinyl estradiol 0.619728 mg/hr / etonogestrel 0.005 mg/hr vaginal system (5 sources) Progestin, Estrogen Start: End: etonogestrel-ethinyl estradiol (NuvaRing) 0.12-0.015 MG/24HR vaginal ring Indications: Irregular menstrual cycle , Bleeding disorder (CMS/HCC) Insert vaginally and leave in place for 21 consecutive days (3 weeks), then remove. Wait for 7 days before inserting new ring. 1 each 3 04/20/2024 07/13/2024 Discontinued (Therapy completed) 1 ml medroxyPROGESTERone acetate 150 mg/ml injection (14 sources) Progestin Start: End: medroxyPROGESTERone (Depo-Provera) 150 MG/ML injection Indications: Menorrhagia with regular cycle INJECT 1 ML (150 MG) INTO THE SHOULDER, THIGH, OR BUTTOCKS EVERY 3 MONTHS 1 mL 3 01/10/2024 07/13/2024 Discontinued (Therapy completed) Start: 10-18-2023 End: 07-13-2024 medroxyPROGESTERone (Depo-Pr overa) injection 150 mg Problems Active Problems Problem Classification Problem Date Documented Date Episodic/Chronic Acute and chronic tonsillitis (5 sources) Amygdalolith; Translations: [Other chronic diseases of tonsils and adenoids] Onset: 02-12-2023 02-12-2023 Chronic Anxiety disorders (5 sources) Anxiety; Translations: [Anxiety disorder, unspecified] Onset: 02-12-2023 02-12-2023 Chronic Attention-deficit, conduct, and disruptive behavior disorders (5 sources) Attention deficit hyperactivity disorder, predominantly inattentive type; Translations: [Attention-deficit hyperactivity disorder, predominantly inattentive type] Onset: 02-12-2023 02-12-2023 Chronic Headache; including migraine (11 sources) Migraine; Translations: [Migraine, unspecified, not intractable, without status migrainosus] Onset: 02-12-2023 11-15-2023 Chronic Malaise and fatigue (5 sources) Fatigue; Translations: [Chronic fatigue, unspecified] Onset: 02-12-2023 02-12-2023 Chronic Menstrual disorders (17 sources) Menorrhagia; Translations: [Excessive and frequent menstruation with regular cycle] Onset: 02-12-2023 Resolved: 04-24-2023 02-12-2023 Chronic Other aftercare (6 sources) Patient encounter status; Translations: [Encounter for follow-up examination after completed treatment for conditions other than malignant neoplasm] Onset: 02-12-2023 Resolved: 04-24-2023 04-24-2023 Episodic Other upper respiratory infections (5 sources) Chronic sinusitis; Translations: [Chronic sinusitis, unspecified] Onset: 02-12-2023 Resolved: 04-24-2023 04-24-2023 Chronic Thyroid disorders (10 sources) Alba thyroiditis; Translations: [Autoimmune thyroiditis] Onset: 02-12-2023 Resolved: 04-24-2023 02-12-2023 Chronic Past or Other Problems Problem Classification Problem Date Documented Da te Episodic/Chronic Nausea and vomiting (6 sources) Nausea and vomiting; Translations: [Nausea with vomiting, unspecified] Onset: 11-19-2023 11-15-2023 Episodic Nutritional deficiencies (5 sources) Vitamin D deficiency; Translations: [Vitamin D deficiency, unspecified] Onset: 02-12-2023 Resolved: 04-24-2023 04-24-2023 Chronic Other female genital disorders (5 sources) Pain in female genitalia on intercourse; Translations: [Unspecified dyspareunia] Onset: 02-12-2023 Resolved: 04-24-2023 04-24-2023 Chronic Results Test Name Value Interpretation Reference Range Facility HCG ( test) Ql (U)o n 07-13-2024 Interpretation and review of laboratory results Normal [facility] Preg Test, Ur Negative Negative [facility] Healthcare [facility] Healthcare IUD Insertionon 07-13-2024 Dilma Monte LPN 07/13/2024 1:32 PM IUD Insertion Performed by: Karon Quiroga DO Authorized by: Karon Quiroga DO Procedure: IUD insertion Consent obtained by patient, parent, or legal power of litigation attorney associate - including discussion of procedure risks and benefits, patient questions answered, and patient education provided: yes Date/Time of Insertion: 07/13/2024 11:20 AM Immediately prior to procedure a time out was called: yes Pelvic exam performed: yes Speculum placed in vagina: yes Cervix cleaned and prepped: yes Tenaculum/Allis/Ring Forceps applied to cervix: yes Anesthesia used: no Cervix dilated: yes IUD inserted without complications: yes OSM: Levonorgestrel 20 MCG/DAY Patient tolerated procedure well: yes Inserted with ultrasound guidance: no Transvaginal sono confirmed fundal placement: no Intended removal date: 5 years [facility] IUD InsertionOrdered By: Bianca Monte on 07-13-2024 [facility] Complete Blood Count Auto Di ffon 11-15-2023 Basophils (Bld) [#/Vol] 0.1 10*3/uL Normal 0.0-0.2 [facility] Comment on above: Result Comment: PERF ORMED BY: [place] [address] PATHOLOGIST ACCOUNTING OFFICER GIBRAN CHOU M.D. Performed By: #### C BC, CMP #### [address] Basophils/100 WBC (Bld) 1.4 % Normal . [facility] Comment on above: Performed By: #### C BC, CMP #### [address] Eosinophils (Bld) [#/Vol] 0.0 10*3/uL Normal 0.0-0.45 [facility] Comment on above: Performed By: #### C BC, CMP #### [address] Eosinophils/100 WBC (Bld) 0.4 % Normal . [facility] Comment on above: Performed By: #### C BC, CMP #### [address] Erythrocyte distribution width (RBC) [Ratio] 14.2 % Normal 11.9-15.3 [facility] Comment on above: Performed By: #### C BC, CMP #### [address] [address] [place] Hematocrit (Bld) [Volume fraction] 39.5 % Normal 34.0-46.4 [facility] Comment on above: Performed By: #### C BC, CMP #### [address] Hemoglobin (Bld) [Mass/Vol] 12.9 g/dL Normal 11.8-15.4 [facility] Comment on above: Performed By: #### C BC, CMP #### [address] Lymphocytes (Bld) [#/Vol] 1.4 10*3/uL Normal 1.00-4.8 [facility] Comment on above: Performed By: #### C BC, CMP #### [address] Lymphocytes/100 WBC (Bld) 19.3 % Normal . [facility] Comment on above: Performed By: #### C BC, CMP #### [address] MCH (RBC) [Entitic mass] 28.4 pg Normal 24.7-34.3 [facility] Comment on above: Performed By: #### C BC, CMP #### [address] MCV (RBC) [Entitic vol] 86.8 fL Normal 80-100 [facility] Comment on above: Performed By: #### C BC, CMP #### [address] Mean Corpuscular HGB Conc 32.7 g/dL Normal 32.0-35.0 [facility] Comment on above: Performed By: #### C BC, CMP #### [address] Monocytes (Bld) [#/Vol] 0.3 10*3/uL Normal 0.0-0.8 [facility] Comment on above: Performed By: #### C BC, CMP #### [address] [address] [place] Monocytes/100 WBC (Bld) 18.50 % Normal 0.00-20.00 [facility] Comment on above: Performed By: #### C BC, CMP #### [address] Monocytes/100 WBC (Bld) 4.0 % Normal . [facility] Comment on above: Performed By: #### C BC, CMP #### [address] Neutrophils (Bld) [#/Vol] 5.4 10*3/uL Normal 1.8-7.7 [facility] Comment on above: Performed By: #### C BC, CMP #### [address] Neutrophils/100 WBC (Bld) 74.9 % Normal . [facility] Comment on above: Performed By: #### C BC, CMP #### [address] NRBC% 0.1 /100{WBC} Normal 0-0.5 [facility] Comment on above: Performed By: #### C BC, CMP #### [address] Platelet mean volume (Bld) [Entitic vol] 9.4 fL Normal 6.3-10.7 [facility] Comment on above: Performed By: #### C BC, CMP #### [place] [address] [place] Platelets (Bld) [#/Vol] 332 10*3/uL Normal 150-450 [facility] Comment on above: Performed By: #### C BC, CMP #### [place] [address] [place] RBC (Bld) [#/Vol] 4.55 10*6/uL Normal 3.60-5.00 [facility] Comment on above: Performed By: #### C BC, CMP #### [place] [address] [place] WBC (Bld) [#/Vol] 7.3 10*3/uL Normal 3.8-11.6 [facility] Comment on above: Performed By: #### C BC, CMP #### [address] Comprehensive Metabolic Pane sandi 11-15-2023 Albumin [Mass/Vol] 4.8 g/dL Normal 3.5-5.7 [facility] Comment on above: Performed By: #### C BC, CMP #### [address] Albumin/Globulin [Mass ratio] 1.6 {ratio} Normal [facility] Comment on above: Performed By: #### C BC, CMP #### [address] ALP [Catalytic activity/Vol] 53 U/L Normal 34-104 [facility] Comment on above: Performed By: #### C BC, CMP #### [address] ALT [Catalytic activity/Vol] 5 U/L Low 7-52 [facility] Comment on above: Performed By: #### C BC, CMP #### [address] Anion gap [Moles/Vol] 14.4 mmol/L Normal 6.0-15.0 [facility] Comment on above: Performed By: #### C BC, CMP #### [address] AST [Catalytic activity/Vol] 12 U/L Low 13-39 [facility] Comment on above: Performed By: #### C BC, CMP #### [address] Bilirubin [Mass/Vol] 1.1 mg/dL High 0.3-1.0 [facility] Comment on above: Performed By: #### C BC, CMP #### [address] Calcium [Mass/Vol] 9.6 mg/dL Normal 8.6-10.3 [facility] Comment on above: Performed By: #### C BC, CMP #### [facility] [address] [place] [address] [place] Chloride [Moles/Vol] 104 mmol/L Normal 98-107 [facility] Comment on above: Performed By: #### C BC, CMP #### [facility] [address] CO2 [Moles/Vol] 21.6 mmol/L Normal 21.0-31.0 [facility] Comment on above: Performed By: #### C BC, CMP #### [facility] [address] Creatinine [Mass/Vol] 0.72 mg/dL Normal 0.60-1.20 [facility] Comment on above: Performed By: #### C BC, CMP #### [facility] [address] [place] [address] [place] Creatinine Clr Calc Pharmacy 108.52 Normal [facility] Comment on above: Result Comment: PERF ORMED BY: [place] [address] PATHOLOGIST ACCOUNTING OFFICER GIBRAN CHOU M.D. Performed By: #### C BC, CMP #### [address] GFR/1.73 sq M.predicted MDRD (S/P/Bld) [Vol rate/Area] mL/min/{1.73_m2} [facility] Comment on above: Performed By: #### C BC, CMP #### [facility] [address] [place] [address] [place] Globulin (S) [Mass/Vol] 3.0 g/dL Normal [facility] Comment on above: Performed By: #### C BC, CMP #### [facility] [address] Glucose [Mass/Vol] 82 mg/dL Normal 70-100 [facility] Comment on above: Result Comment: Jarrell om Glucose Reference Range is dependent on time and content of last meal. Glucose of more than 200 mg/dL in a nonstressed, ambulatory subject supports the diagnosis of Diabetes Mellitus. ADA recommended reference range Performed By: #### C BC, CMP #### [facility] [address] Potassium [Moles/Vol] 4.0 mmol/L Normal 3.5-5.1 [facility] Comment on above: Performed By: #### C BC, CMP #### [facility] [address] Protein [Mass/Vol] 7.8 g/dL Normal 6.4-8.9 [facility] Comment on above: Performed By: #### C BC, CMP #### [address] Sodium [Moles/Vol] 136 mmol/L Normal 136-145 [facility] Comment on above: Performed By: #### C BC, CMP #### [address] Urea nitrogen [Mass/Vol] 11 mg/dL Normal 7-25 [facility] Comment on above: Performed By: #### C BC, CMP #### [place] [address] [place] Dipstick and Microscopicon 0 11-15-2023 Appearance (U) Clear Normal Clear [facility] Comment on above: Order Comment: Name Collection Type:: Clean-Voided Midstream Performed By: #### A DDONUAPLUS UHCG #### [place] [address] [place] Bacteria,Urine None Seen Normal None Seen [facility] Comment on above: Order Comment: Name Collection Type:: Clean-Voided Midstream Performed By: #### A DDONUAPLUS, UHCG #### [place] [address] [place] Bilirubin,Urine Negative Normal Negative [facility] Comment on above: Order Comment: Name Collection Type:: Clean-Voided Midstream Performed By: #### A DDONUAPLUS, UHCG #### [facility] [address] [place] [address] [place] Color (U) Yellow Normal Yellow [facility] Comment on above: Order Comment: Name Collection Type:: Clean-Voided Midstream Performed By: #### A DDONUAPLUS, UHCG #### [facility] [address] [place] [address] Glucose Ql (U) Normal Normal Normal [facility] Comment on above: Order Comment: Name Collection Type:: Clean-Voided Midstream Performed By: #### A DDONUAPLUS, UHCG #### [address] Ketones Ql (U) 4+ High Negative [facility] Comment on above: Order Comment: Name Collection Type:: Clean-Voided Midstream Performed By: #### A DDONUAPLUS, UHCG #### [address] Leukocyte esterase Test strip Ql (U) Negative Normal Negative [facility] Comment on above: Order Comment: Name Collection Type:: Clean-Voided Midstream Performed By: #### A DDONUAPLUS, UHCG #### [facility] [address] [place] [address] [place] Nitrite,Urine Negative Normal Negative [facility] Comment on above: Order Comment: Name Collection Type:: Clean-Voided Midstream Performed By: #### A DDONUAPLUS, UHCG #### [facility] [address] [place] [address] [place] Occult Blood,Urine 2+ High Negative [facility] Comment on above: Order Comment: Name Collection Type:: Clean-Voided Midstream Performed By: #### A DDONUAPLUS, UHCG #### [facility] [address] [place] [address] [place] pH (U) 6.0 [pH] Normal 5.0-9.0 [facility] Comment on above: Order Comment: Name Collection Type:: Clean-Voided Midstream Performed By: #### A DDONUAPLUS, UHCG #### [address] Protein,Urine Negative Normal Negative [facility] Comment on above: Order Comment: Name Collection Type:: Clean-Voided Midstream Performed By: #### A DDONUAPLUS, UHCG #### [address] RBC,Urine 10-19 High 0-4 [facility] Comment on above: Order Comment: Name Collection Type:: Clean-Voided Midstream Performed By: #### A DDONUAPLUS, UHCG #### [address] Specificy [place],Urine 1.026 Normal 1.001-1.030 [facility] Comment on above: Order Comment: Name Collection Type:: Clean-Voided Midstream Performed By: #### A DDONUAPLUS, UHCG #### [address] Squamous Epithelial Cell,Urine 1-2 Normal 0-2 [facility] Comment on above: Order Comment: Name Collection Type:: Clean-Voided Midstream Performed By: #### A DDONUAPLUS, UHCG #### [address] Urobilinogen,Urine Normal Normal Normal [facility] Comment on above: Order Comment: Name Collection Type:: Clean-Voided Midstream Performed By: #### A DDONUAPLUS, UHCG #### [address] WBC LM.HPF (Urine sed) [#/Area] 0 /[HPF] Normal 0-4 [facility] Comment on above: Order Comment: Name Collection Type:: Clean-Voided Midstream Performed By: #### A DDONUAPLUS, UHCG #### [address] ECG 12 lead ECGon 11-15-2023 ECG 12 lead ECG [facility] [place] [address] [place] [address] Electrocardiograph Report Signed Patient: Carlene Alamo MR#: [id number] 69 : 2005 Acct:[id number] Age/Sex: 18 / F ADM Date: 11/14/23 Loc: ER Room: Type: [place] [facility] Attending Dr: Ordering Provider: Mathew Hawley DO Date of Service: 11/14/23 ECG/ECG 12 lead ECG: Nausea/Vomiting/Diar pepe Copies to: Test Reason : Blood Pressure : 156/079 mmHG Vent. Rate : 105 BPM Atrial Rate : 105 BPM P-R Int : 124 ms QRS Dur : 076 ms QT Int : 340 ms P-R-T Axes : 072 083 051 degrees QTc Int : 449 ms Sinus tachycardia Confirmed by Mathew Hawley DO ([id number]) on 11/15/2023 12:55:57 AM Referred By: Electronically Signed By:Mathew Hawley DO Transcribed By: MUS Signed By Mathew Hawley DO [id number] Normal [facility] HCG,Urineon 11-15-2023 Beta HCG ( test) Ql (U) Negative Normal [facility] Comment on above: Order Comment: Name Collection Type:: Clean-Voided Midstream Result Comment: PERF ORMED BY: [place] [address] PATHOLOGIST ACCOUNTING OFFICER GIBRAN CHOU M.D. Performed By: #### A DDONUAPLUS, [facility] #### [address] Alanine aminotransferase [En zymatic activity/volume] in Serum or PlasmaOrdered By: PROVIDER TEMP on 11-14-2023 ALT [Catalytic activity/Vol] 5 U/L 7-52 [facility] Albumin [Mass/volume] in Ser um or Plasma by Bromocresol green (BCG) dye binding methoOrdered By: PROVIDER TEMP on 11-14-2023 Albumin BCG dye [Mass/Vol] 4.8 g/dL 3.5-5.7 [facility] Alkaline phosphatase [Enzyma tic activity/volume] in Serum or PlasmaOrdered By: PROVIDER TEMP on 11-14-2023 ALP [Catalytic activity/Vol] 53 U/L 34-104 [facility] Aspartate aminotransferase [ Enzymatic activity/volume] in Serum or PlasmaOrdered By: PROVIDER TEMP on 11-14-2023 AST [Catalytic activity/Vol] 12 U/L 13-39 [facility] Automated epithelial cells c ount in urine sediment (number/area)Ordered By: Mathew Hawley on 11-14-2023 Epithelial cells Auto (Urine sed) [#/Area] 1-2 [HPF] 0-2 [facility] Automated erythrocytes count in urine sediment (number/area)Ordered By: Mathew Hawley on 11-14-2023 RBC Auto (Urine sed) [#/Area] 10-19 [HPF] 0-4 [facility] Automated leukocytes count i n urine sediment (number/area)Ordered By: Mathew Hawley on 11-14-2023 WBC Auto (Urine sed) [#/Area] 0-1 [HPF] 0-4 [facility] Basophils Auto (Bld) [#/Vol] Ordered By: PROVIDER TEMP on 11-14-2023 Basophils (Bld) [#/Vol] 0.1 10*3/uL 0.0-0.2 [facility] Basophils/100 WBC Auto (Bld) Ordered By: PROVIDER TEMP on 11-14-2023 Basophils/100 WBC (Bld) 1.4 % . [facility] Bilirubin Test strip Ql (U)O rdered By: Mathew Hawley on 11-14-2023 Bilirubin Ql (U) Negative Negative [facility] Bilirubin.total [Mass/volume ] in Serum or PlasmaOrdered By: PROVIDER TEMP on 11-14-2023 Bilirubin [Mass/Vol] 1.1 mg/dL 0.3-1.0 [facility] Calcium [Mass/volume] in Ser um or PlasmaOrdered By: PROVIDER TEMP on 11-14-2023 Calcium [Mass/Vol] 9.6 mg/dL 8.6-10.3 [facility] Carbon dioxide, total [Moles /volume] in Serum or PlasmaOrdered By: PROVIDER TEMP on 11-14-2023 CO2 [Moles/Vol] 21.6 mmol/L 21.0-31.0 [facility] Chloride [Moles/volume] in S edy or PlasmaOrdered By: PROVIDER TEMP on 11-14-2023 Chloride [Moles/Vol] 104 mmol/L 98-107 [facility] Color Auto (U)Ordered By: Zuleima alfreditotariklorna Chandan on 11-14-2023 Color (U) Yellow Yellow [facility] Creatinine [Mass/volume] in Serum or PlasmaOrdered By: PROVIDER TEMP on 11-14-2023 Creatinine [Mass/Vol] 0.72 mg/dL 0.60-1.20 [facility] Eosinophils Auto (Bld) [#/Vo l]Ordered By: PROVIDER TEMP on 11-14-2023 Eosinophils (Bld) [#/Vol] 0.0 10*3/uL 0.0-0.45 [facility] Eosinophils/100 WBC Auto (Bl d)Ordered By: PROVIDER TEMP on 11-14-2023 Eosinophils/100 WBC (Bld) 0.4 % . [facility] Erythrocyte distribution wid th Auto (RBC) [Ratio]Ordered By: PROVIDER TEMP on 11-14-2023 Erythrocyte distribution width (RBC) [Ratio] 14.2 % 11.9-15.3 [facility] Globulin Calc (S) [Mass/Vol] Ordered By: PROVIDER TEMP on 11-14-2023 Globulin (S) [Mass/Vol] 3.0 g/dL [facility] Glucose [Mass/volume] in Ser um or PlasmaOrdered By: PROVIDER TEMP on 11-14-2023 Glucose [Mass/Vol] 82 mg/dL 70-100 [facility] Comment on above: ADA recommended refe rence rangeRandom Glucose Reference Range is dependent on time and content of last meal. Glucose of more than 200 mg/dL in a nonstressed, ambulatory subject supports the diagnosis of Diabetes Mellitus. HCG ( test) IAjamiei d Ql (U)Ordered By: PROVIDER TEMP on 11-14-2023 HCG ( test) Ql (U) Negative [facility] Hematocrit Auto (Bld) [Volum e fraction]Ordered By: PROVIDER TEMP on 11-14-2023 Hematocrit (Bld) [Volume fraction] 39.5 % 34.0-46.4 [facility] Hemoglobin [Mass/volume] in BloodOrdered By: PROVIDER TEMP on 11-14-2023 Hemoglobin (Bld) [Mass/Vol] 12.9 g/dL 11.8-15.4 [facility] Ketones Auto test strip (U) [Mass/Vol]Ordered By: Mathew Hawley on 11-14-2023 Ketones (U) [Mass/Vol] 4+ Negative [facility] Leukocytes [#/volume] correc lou for nucleated erythrocytes in Blood by Automated counOrdered By: PROVIDER TEMP on 11-14-2023 WBC corrected for nucl RBC Auto (Bld) [#/Vol] 7.3 10*3/uL 3.8-11.6 [facility] Lymphocytes Auto (Bld) [#/Vo l]Ordered By: PROVIDER TEMP on 11-14-2023 Lymphocytes (Bld) [#/Vol] 1.4 10*3/uL 1.00-4.8 [facility] Lymphocytes/100 WBC Auto (Bl d)Ordered By: PROVIDER TEMP on 11-14-2023 Lymphocytes/100 WBC (Bld) 19.3 % . [facility] MCH Auto (RBC) [Entitic mass ]Ordered By: PROVIDER TEMP on 11-14-2023 MCH (RBC) [Entitic mass] 28.4 pg 24.7-34.3 [facility] MCHC Auto (RBC) [Mass/Vol]Or dered By: PROVIDER TEMP on 11-14-2023 MCHC (RBC) [Mass/Vol] 32.7 g/dL 32.0-35.0 [facility] MCV Auto (RBC) [Entitic vol] Ordered By: PROVIDER TEMP on 11-14-2023 MCV (RBC) [Entitic vol] 86.8 fL 80-100 [facility] Monocyte distribution width [Entitic volume] in Blood by AutomatedOrdered By: PROVIDER TEMP on 11-14-2023 Monocyte distribution width Auto (Bld) [Entitic vol] 18.50 % 0.00-20.00 [facility] Monocytes Auto (Bld) [#/Vol] Ordered By: PROVIDER TEMP on 11-14-2023 Monocytes (Bld) [#/Vol] 0.3 10*3/uL 0.0-0.8 [facility] Monocytes/100 WBC Auto (Bld) Ordered By: PROVIDER TEMP on 11-14-2023 Monocytes/100 WBC (Bld) 4.0 % . [facility] Neutrophils Auto (Bld) [#/Vo l]Ordered By: PROVIDER TEMP on 11-14-2023 Neutrophils (Bld) [#/Vol] 5.4 10*3/uL 1.8-7.7 [facility] Neutrophils/100 WBC Auto (Bl d)Ordered By: PROVIDER TEMP on 11-14-2023 Neutrophils/100 WBC (Bld) 74.9 % . [facility] Nitrite Test strip Ql (U)Ord ered By: Mathew Hawley on 11-14-2023 Nitrite Ql (U) Negative Negative [facility] No Panel InformationOrdered By: PROVIDER TEMP on 11-14-2023 Estimated GFR (CKD-EPI) > 60.0 mL/Min [facility] Creatinine Clearance (Chem 108.52 [facility] Nucleated erythrocytes [Pres ence] in Blood by Automated countOrdered By: PROVIDER TEMP on 11-14-2023 Nucleated RBC Auto Ql (Bld) 0.1 /100{WBC} 0-0.5 [facility] Platelet mean volume Auto (B ld) [Entitic vol]Ordered By: PROVIDER TEMP on 11-14-2023 Platelet mean volume (Bld) [Entitic vol] 9.4 fL 6.3-10.7 [facility] Platelets Auto (Bld) [#/Vol] Ordered By: PROVIDER TEMP on 11-14-2023 Platelets (Bld) [#/Vol] 332 10*3/uL 150-450 [facility] Potassium [Moles/volume] in Serum or PlasmaOrdered By: PROVIDER TEMP on 11-14-2023 Potassium [Moles/Vol] 4.0 mmol/L 3.5-5.1 [facility] Protein Auto test strip (U) [Mass/Vol]Ordered By: Mathew Hawley on 11-14-2023 Protein (U) [Mass/Vol] Negative Negative [facility] Protein [Mass/volume] in Ser um or PlasmaOrdered By: PROVIDER TEMP on 11-14-2023 Protein [Mass/Vol] 7.8 g/dL 6.4-8.9 [facility] RBC Auto (Bld) [#/Vol]Ordere d By: PROVIDER TEMP on 11-14-2023 RBC (Bld) [#/Vol] 4.55 10*6/uL 3.60-5.00 [facility] Serum or plasma albumin/glob ulin mass ratioOrdered By: PROVIDER TEMP on 11-14-2023 Albumin/Globulin [Mass ratio] 1.6 {ratio} [facility] Serum or plasma anion gap de terminationOrdered By: PROVIDER TEMP on 11-14-2023 Anion gap [Moles/Vol] 14.4 mmol/L 6.0-15.0 [facility] Sodium [Moles/volume] in Ser um or PlasmaOrdered By: PROVIDER TEMP on 11-14-2023 Sodium [Moles/Vol] 136 mmol/L 136-145 [facility] Specific gravity Auto test s trip (U) [Rel density]Ordered By: Mathew Hawley on 11-14-2023 Specific gravity (U) [Rel density] 1.026 1.001-1.030 [facility] Urea nitrogen [Mass/volume] in Serum or PlasmaOrdered By: PROVIDER TEMP on 11-14-2023 Urea nitrogen [Mass/Vol] 11 mg/dL 7-25 [facility] Urine bacteria detection by automated methodOrdered By: Mathew Hawley on 11-14-2023 Bacteria Auto Ql (U) None seen None Seen [facility] Urine clarity by refractomet ry automatedOrdered By: Mathew Hawley on 11-14-2023 Clarity Refractometry automated (U) Clear Clear [facility] Urine glucose measurement by automated test strip (mass/volume)Ordered By: Mathew Hawley on 11-14-2023 Glucose Auto test strip (U) [Mass/Vol] Normal mg/dL Normal [facility] Urine hemoglobin detection b y automated test stripOrdered By: Mathew Hawley on 11-14-2023 Hemoglobin Auto test strip Ql (U) 2+ Negative [facility] Urine leukocyte esterase det ection by automated test stripOrdered By: Mathew Sharparthy on 11-14-2023 Leukocyte esterase Auto test strip Ql (U) Negative Negative [facility] Urobilinogen Auto test strip (U) [Mass/Vol]Ordered By: Mathew Chandan on 11-14-2023 Urobilinogen (U) [Mass/Vol] Normal mg/dL Normal [facility] WBC Auto (Bld) [#/Vol]Ordere d By: PROVIDER TEMP on 11-14-2023 WBC (Bld) [#/Vol] 7.3 10*3/uL 3.8-11.6 [facility] pH Auto test strip (U)Ordere d By: Mathew Hawley on 11-14-2023 pH (U) 6.0 [pH] 5.0-9.0 [facility] US Thyroidon 03-07-2022 US Thyroid EXAM: Please [...] by Giorgi Monroy on 03/07/2022 1037 Normal [facility] [employer] TSH w/ Reflex to Free T4on 1 10-17-2020 TSH 0.633 uIU/mL Normal 0.400-4.500 [facility] io [employer] Comment on above: Performed By: #### T SH reflex FT4 #### [facility] [address] [place], [place] [id number] Vital Signs Date Time Vital Sign Value Performing Clinician Facility 07-13-2024 11:06-0500 Body mass index (BMI) [Ratio] 21.28 kg/m2 Karon Junaid DO Work Phone: [facility] 07-13-2024 11:06-0500 Body weight 56.25 kg Karon Junaid DO Work Phone: [facility] 07-13-2024 11:06-0500 Diastolic blood pressure 68 mm[Hg] Karon Junaid DO Work Phone: [facility] 07-13-2024 11:06-0500 Systolic blood pressure 102 mm[Hg] Karon Junaid DO Work Phone: [facility] 06-22-2024 08:35-0400 Body height 162.6 cm Karon Junaid DO Work Phone: [facility] 06-22-2024 08:35-0400 Body mass index (BMI) [Ratio] 21.46 kg/m2 Karon Junaid DO Work Phone: [facility] 06-22-2024 08:35-0400 Body weight 56.7 kg Karon Junaid DO Work Phone: [facility] 06-22-2024 08:35-0400 Diastolic blood pressure 76 mm[Hg] Karon Junaid DO Work Phone: [facility] 06-22-2024 08:35-0400 Systolic blood pressure 110 mm[Hg] Karon Junaid DO Work Phone: [facility] 11-15-2023 00:56-0400 Diastolic blood pressure 60 mm[Hg] DO Mathew Petznick Work Phone: [facility] 11-15-2023 00:56-0400 Heart rate 95 /min DO Mathew Petznick Work Phone: [facility] 11-15-2023 00:56-0400 Respiratory rate 16 /min DO Mathew Petznick Work Phone: [facility] 11-15-2023 00:56-0400 SaO2% (BldA) [Mass fraction] 99 % DO Mathew Petznick Work Phone: [facility] 11-15-2023 00:56-0400 Systolic blood pressure 109 mm[Hg] DO Mathew Petznick Work Phone: [phone] 11-14-2023 23:42-0400 Body temperature 98.2 [degF] DO Mathew Petznick Work Phone: [facility] 11-14-2023 19:24-0400 Body height 162.56 cm DO Mathew Petznick Work Phone: [phone] [place] [address] 11-14-2023 19:24-0400 Body weight 54.7 kg DO Mathew Petznick Work Phone: [facility] Encounters Encounter Date Encounter Type Care Provider Facility Start: 07-13-2024 End: 07-13-2024 Patient encounter procedure Karon Junaid DO Work Phone: [facility] Comment on above: Encounter for IUD in sertion Start: 07-13-2024 End: 07-13-2024 ambulatory KARON QUIROGA Not Available Start: 06-26-2024 End: 06-26-2024 ambulatory SHE RICHARDSON Not Available Start: 06-22-2024 End: 06-22-2024 Bamboo flowsheet Karon Junaid DO Work Phone: [facility] Start: 06-22-2024 End: 06-22-2024 Bamboo flowsheet Karon Junaid DO Work Phone: [facility] Start: 06-22-2024 End: 06-22-2024 Office outpatient visit 15 minutes [place] Junaid DO Work Phone: [facility] Comment on above: Irregular menstrual cycle (Primary Dx) Start: 06-22-2024 End: 06-22-2024 ambulatory KARON JUNAID Not Available Start: 06-15-2024 End: 06-15-2024 Bamboo flowsheet Karon Junaid DO Work Phone: [facility] Start: 06-15-2024 End: 06-15-2024 Bamboo flowsheet Karon Junaid DO Work Phone: [facility] Start: 05-18-2024 End: 05-18-2024 ambulatory MARGARITA W KANG Not Available Start: 04-20-2024 End: 04-20-2024 ambulatory KARON JUNAID Not Available Start: 04-03-2024 End: 04-03-2024 ambulatory SHE DEBRA Not Available Start: 02-24-2024 End: 02-24-2024 ambulatory MATHEW C PETAILYNICK Not Available Start: 02-16-2024 End: 02-16-2024 ambulatory CRISTINA OTTO Not Available Start: 02-10-2024 End: 02-10-2024 ambulatory MARGARITA W KANG Not Available Start: 01-13-2024 End: 01-13-2024 ambulatory SHE DEBRA Not Available Start: 01-06-2024 End: 01-06-2024 ambulatory MARGARITA W KANG Not Available Start: 11-19-2023 End: 11-19-2023 ambulatory MATHEW C PETZNICK Not Available Start: 11-14-2023 End: 11-15-2023 Emergency department patient visit Mathew Williamsonmariaelena Facility:[facility] Start: 11-14-2023 End: 11-15-2023 Emergency department patient visit DO Mathew Kurtz Work Phone: [facility] Work Phone: Start: 10-18-2023 End: 10-18-2023 ambulatory SHE DEBRA Not Available Start: 10-15-2023 End: 10-15-2023 ambulatory MATHEW KURTZ Not Available Start: 09-07-2023 End: 09-07-2023 ambulatory MEHNAZ FIGUEROA Not Available Start: 08-29-2023 End: 08-29-2023 ambulatory SHE RICHARDSON Not Available Start: 07-31-2023 End: 07-31-2023 ambulatory YRLAN SMITH Not Available Start: 07-26-2023 End: 07-26-2023 ambulatory SHE RICHARDSON Not Available Procedures Date Procedure Procedure Detail Performing Clinician Start: 07-13-2024 Urine test visual color cmprsn meths Karon Junaid DO Work Phone: Start: 07-13-2024 IUD INSERTION Karon Julio Cesar io DO Work Phone: Plan of Treatment Date Care Activity Detail Author Start: 08-03-2024 End: 08-03-2024 Patient encounter procedure 08/03/2024 3:20 PM EST Office Visit [facility] [address] [facility] [address] [place] [address] Margarita Kang MD [address] [place] [address] [place] [address] [facility] Start: 07-27-2024 End: 07-27-2024 Professional / ancillary services management 07/27/2024 2:00 PM EST Ancillary Procedure [facility] [address] [place] [address] [facility] Start: 07-13-2024 End: 07-13-2025 US Pelvis transvaginal US pelvis transvaginal Imaging Routine Encounter for IUD insertion Expected: 07/13/2024 (Approximate), Expires: 07/13/2025 [facility] Work Phone: Comment on above: Expected: 07/13/2024 (Approximate), Expires: 07/13/2025 Start: 07-13-2024 End: 07-13-2024 Patient encounter procedure 07/13/2024 10:30 AM EST Procedure Visit [facility] [address] [place] [phone] Karon Quiroga, DO [address] [place] [address] [facility] Start: 06-26-2024 End: 06-26-2024 Clinical Support 06/26/2024 9:10 AM EDT Clinical Support [facility] [address] [place] [phone] [facility] Start: 06-22-2024 End: 06-22-2024 Patient encounter procedure 06/22/2024 8:30 AM EDT Office Visit [facility] [address] [place] [phone] Karon Quiroga, DO [address] [place] [address] Arrived [facility] Comment on above: Arrived Start: 06-15-2024 End: 06-15-2024 Patient encounter procedure 06/15/2024 2:10 PM EDT Office Visit [facility] [address] [place] [phone] Karon Quiroga, DO [address] [place] [address] Arrived [facility] Comment on above: Arrived Start: 04-26-2024 Influenza vaccination Influenza Vacc ine (#1) [facility] Patient Education Migraines (DC) [facility] Work Phone: Patient referral [facility] Work Phone: Immunizations Immunization Date Immunization Notes Care Provider Fa cili 05-25-2020 influenza virus vacc ine, unspecified formulation Karon Quiroga DO Work Phone: [facility] Payers Date Payer Category Payer Self-pay [id number] 2022 Private Health Insurance [employer] [id number] 2022 Unknown [id number] 2004 Unknown [id number] 2.840.1.453728.3.579.2. 1258 2004 Unknown [id number] 2.16840.1.222688.3.579.2. 1258 2004 Unknown [id number] 2.16840.1.577416.3.579.2. 1258 2004 Unknown [id number] 2.840.1.092843.3.579.2. 1258 2004 Unknown [id number] 2.840.1.712194.3.579.2. 1258 2004 Unknown [id number] 2.16840.1.472470.3.579.2. 1258 2004 Unknown [id number] 2.16840.1.733602.3.579.2. 1258 2004 Unknown [id number] 2.16840.1.411176.3.579.2. 1258 2004 Unknown [id number] 2.16840.1.504014.3.579.2. 1258 2004 Unknown [id number] 2.16.840.1.384412.3.579.2. 1259 2004 Unknown [id number] 2.16.840.1.370343.3.579.2. 9 2004 Unknown [id number] 2.16.840.1.776223.3.579.2. 9 2004 Unknown [id number] 2.16.840.1.667885.3.579.2. 9 2004 Unknown [id number] 2.16.840.1.334362.3.579.2. 1259 2004 Unknown [id number] 2.16.840.1.064302.3.579.2. 9 2004 Unknown [id number] 2.16.840.1.873454.3.579.2. 9 2004 Unknown [id number] 2.16.840.1.638009.3.579.2. 9 2004 Unknown [id number] 2.16.840.1.224891.3.579.2. 125 Unknown [id number] 2.16.840.1.619831.3.579.2. 531 Social History Date Type Detail Facility Start: 01-25-2023 End: 11-14-2023 Tobacco smoking status NHIS Never smoked tobacco (finding) [facility] Start: 2005 Sex Assigned At Female [facility] Start: 01-25-2023 Tobacco use and exposure Smokeless tobacco non-user [facility] Start: 05-18-2024 End: 07-13-2024 Alcoholic beverage intake Lifetime non-drinker (finding) [facility] Start: 02-24-2024 End: 05-18-2024 History of Social function [facility] Start: 02-24-2024 End: 05-18-2024 Tobacco use panel [facility] Start: 01-27-2023 Gender identity Identifies as female gender (finding) [facility] Start: 01-27-2023 Sexual orientation Heterosexual (finding) [facility] History of Present illness Narrative 07-13-2024 Meli Wheeler MA - 07/13/2024 10:30 AM EST Note Date & Type Note Facility 07-13-2024 History of Presen t illness Narrative Associated Order(s): IUD Insertion Post-Procedure Diagnose(s): Encounter for IUD insertion Reason for Appointment: Patient ID: Carlene Alamo is a 19 y.o. female who presents for Contraception (Pt present today for Mirena insertion ) Patient presents today for a IUD Insertion appointment. MEDICATIONS Current Outpatient Medications Medication Instructions etonogestrel-ethinyl estradiol (NuvaRing) 0.12-0.015 MG/24HR vaginal ring Insert vaginally and leave in place for 21 consecutive days (3 weeks), then remove. Wait for 7 days before inserting new ring. imipramine (TOFRANIL) 25 mg, Oral, Nightly levothyroxine (SYNTHROID) 112 mcg, Oral, Daily before breakfast medroxyPROGESTERone (Depo-Provera) 150 MG/ML injection INJECT 1 ML (150 MG) INTO THE SHOULDER, THIGH, OR BUTTOCKS EVERY 3 MONTHS ondansetron ODT (Zofran-ODT) 4 MG disintegrating tablet DISSOLVE 1 TABLET ON THE TONGUE EVERY 6 HOURS NEEDED FOR NAUSEA AND VOMITING Ubrelvy 100 MG tablet ALLERGIES Allergies Allergen Reactions [place] (Diagnostic) GI intolerance Cyproheptadine Other Penicillin G Benzathine Amoxicillin Rash Penicillins Rash SURGICAL HISTORY Past Surgical History: Procedure Laterality Date LA FOREARM/WRIST SURGERY UNLISTED fatty tissue removed from rt arm REVIEW OF SYSTEMS Review of Systems: Review of Systems All other systems reviewed and are negative. OBJECTIVE Objective: Physical Exam Constitutional: Appearance: Normal appearance. She is well-developed. Genitourinary: Vulva normal. Cardiovascular: Rate and Rhythm: Normal rate and regular rhythm. Pulmonary: Effort: Pulmonary effort is normal. Breath sounds: Normal breath sounds. Abdominal: General: Bowel sounds are normal. There is no distension. Palpations: Abdomen is soft. Tenderness: There is no abdominal tenderness. There is no guarding or rebound. Musculoskeletal: General: No swelling. Normal range of motion. Right lower leg: No edema. Left lower leg: No edema. Neurological: Mental Status: She is alert and oriented to person, place, and time. Skin: General: Skin is warm and dry. Psychiatric: Mood and Affect: Mood normal. Behavior: Behavior normal. Vitals and nursing note reviewed. Exam conducted with a dry man present. Vitals: Estimated body mass index is 20.94 kg/m as calculated from the following: Height as of 06/22/24: 5' 4 . Weight as of 06/26/24: 122 lb. BP: Patient's last menstrual period was 06/19/2024. ASSESSMENT & PLAN Assessment/Plan Encounter Diagnosis: ICD-10-CM 1. Encounter for IUD insertion Z30.430 Levonorgestrel intrauterine device 52 mg POCT , urine manually resulted IUD Insertion Performed by: Karon Quiroga DO Authorized by: Karon Quiroga DO Procedure: IUD insertion Consent obtained by patient, parent, or legal power of litigation attorney associate - including discussion of procedure risks and benefits, patient questions answered, and patient education provided: yes Date/Time of Insertion: 07/13/2024 11:20 AM Immediately prior to procedure a time out was called: yes Pelvic exam performed: yes Speculum placed in vagina: yes Cervix cleaned and prepped: yes Tenaculum/Allis/Ring Forceps applied to cervix: yes Anesthesia used: no Cervix dilated: yes IUD inserted without complications: yes OSM: Levonorgestrel 20 MCG/DAY Patient tolerated procedure well: yes Inserted with ultrasound guidance: no Transvaginal sono confirmed fundal placement: no Intended removal date: 5 years IUD Insertion: Patient presents today for an IUD Insertion. Patient is having a Mirena placed and written consent was obtained. Patient was placed in the dorsal lithotomy position with feet in stirrups. A sterile speculum ws placed into the vagina and the cervix was visualized. Cervix was cleansed with betadine and the anterior lip was grasped with ring forceps. Uterus was then gently sounded. New IUD device was gently advanced through the endocervix, toward te uterine fundus. The IUD was then deployed as device was gently removed from the uterus. The IUD strings were cut to the length from external os. All instruments were removed from the vagina. Post-procedure instructions given. All of patients questions were answered and she expressed understanding. Advised to call interim with any questions or concerns. Patient did get a little light headed with procedure, but was given cold wet towel for forehead and US order to check for placement in 1-2 weeks. Patient declines water at this time. Patient had support system in room with her for procedure. Follow Up: Patient is to return to the office in 4 weeks for a string check. Documented by Dilma Monte LPN on behalf of: Karon Quiroga DO documented in this encounter [facility] History of Present illness Narrative 06-22-2024 Dilma Monte LPN - 06/22/2024 8:30 AM EDT Note Date & Type Note Facility 06-22-2024 History of Presen t illness Narrative Reason for Appointment: Patient ID: Carlene Alamo is a 19 y.o. female who presents for Contraception Patient presents today for Consult appointment. MEDICATIONS Current Outpatient Medications Medication Instructions etonogestrel-ethinyl estradiol (NuvaRing) 0.12-0.015 MG/24HR vaginal ring Insert vaginally and leave in place for 21 consecutive days (3 weeks), then remove. Wait for 7 days before inserting new ring. imipramine (TOFRANIL) 25 mg, Oral, Nightly levothyroxine (SYNTHROID) 112 mcg, Oral, Daily before breakfast medroxyPROGESTERone (Depo-Provera) 150 MG/ML injection INJECT 1 ML (150 MG) INTO THE SHOULDER, THIGH, OR BUTTOCKS EVERY 3 MONTHS ondansetron ODT (Zofran-ODT) 4 MG disintegrating tablet DISSOLVE 1 TABLET ON THE TONGUE EVERY 6 HOURS NEEDED FOR NAUSEA AND VOMITING ALLERGIES Allergies Allergen Reactions [place] (Diagnostic) GI intolerance Cyproheptadine Other Penicillin G Benzathine Amoxicillin Rash Penicillins Rash PROBLEMS Active Ambulatory Problems Diagnosis Date Noted Anxiety 02/12/2023 Attention deficit hyperactivity disorder (ADHD), predominantly inattentive type (CMS/HCC) 02/12/2023 Chronic fatigue 02/12/2023 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 Menorrhagia with regular cycle 02/12/2023 Migraine without aura and without status migrainosus, not intractable (CMS/HCC) 02/12/2023 Tonsil stone 02/12/2023 Migraine (CMS/HCC) 11/19/2023 Nausea and vomiting 11/19/2023 Resolved Ambulatory Problems Diagnosis Date Noted Abnormal menstrual cycle 02/12/2023 Chronic sinusitis, unspecified 02/12/2023 Dysmenorrhea 02/12/2023 Enlarged thyroid (CMS/HCC) 02/12/2023 Pain in female genitalia on intercourse 02/12/2023 Vitamin D deficiency 02/12/2023 Encounter for follow-up 02/12/2023 Past Medical History: Diagnosis Date ADHD (attention deficit hyperactivity disorder) (CMS/HCC) Menorrhagia Migraines (CMS/HCC) Seasonal allergies Thyroid disease (CMS/HCC) HISTORY PAST MEDICAL HISTORY SOCIAL HISTORY Past Medical History: Diagnosis Date ADHD (attention deficit hyperactivity disorder) (CMS/HCC) Anxiety Chronic sinusitis, unspecified 02/12/2023 Alba's disease (CMS/HCC) Menorrhagia Migraines (CMS/HCC) Seasonal allergies Thyroid disease (CMS/HCC) Vitamin D deficiency 02/12/2023 Social History Tobacco Use Smoking status: Never Smokeless tobacco: Never Vaping Use Vaping status: Never Used Substance Use Topics Alcohol use: Never Drug use: Not on file FAMILY HISTORY Family History Problem Relation Name Age of Onset Learning disabilities Mother Other (thyroid) Mother Endometriosis Mother Alcohol abuse Father Depression Father No Known Problems Brother SURGICAL HISTORY Past Surgical History: Procedure Laterality Date LA FOREARM/WRIST SURGERY UNLISTED fatty tissue removed from rt arm REVIEW OF SYSTEMS Review of Systems: Review of Systems Genitourinary: Positive for menstrual problem. All other systems reviewed and are negative. OBJECTIVE Objective: Physical Exam Constitutional: Appearance: Normal appearance. She is well-developed. Cardiovascular: Rate and Rhythm: Normal rate and regular rhythm. Pulmonary: Effort: Pulmonary effort is normal. Breath sounds: Normal breath sounds. Abdominal: General: Bowel sounds are normal. There is no distension. Palpations: Abdomen is soft. Tenderness: There is no abdominal tenderness. There is no guarding or rebound. Musculoskeletal: General: No swelling. Normal range of motion. Right lower leg: No edema. Left lower leg: No edema. Neurological: Mental Status: She is alert and oriented to person, place, and time. Skin: General: Skin is warm and dry. Psychiatric: Mood and Affect: Mood normal. Behavior: Behavior normal. Vitals and nursing note reviewed. Exam conducted with a dry man present. Vitals: Estimated body mass index is 21.46 kg/m as calculated from the following: Height as of this encounter: 5' 4 . Weight as of this encounter: 125 lb. BP: 110/76 Patient's last menstrual period was 06/19/2024. ASSESSMENT & PLAN Patient voiced that she tried NuvaRing for 2 months and pharmacy would not fill medication prior so then patient was able to skip cycle. Patient is currently scheduled for next Depo Injection. Discussed IUD and transitioning off of Dep Injection. Patient was given NuvaRing to use along with Depo injection. Patient voiced that she is not good at remembering to take pills routinely. Patient considering Mirena IUD. Patient would like to setup for Mirena IUD insertion. Patient to return to clinic in a few weeks for insertion. Documented by Dilma Monte LPN on behalf of: Karon Quiroga DO documented in this encounter [facility] Evaluation note Note Date & Type Note Facility Evaluation note No assessment information availa ble [facility] Work Phone: Evaluation note Note Date & Type Note Facility Evaluation note Diagnosis Irregular menstrual cycle- Primary documented in this encounter [facility] Healthcare Evaluation note Note Date & Type Note Facility Evaluation note Diagnosis Encounter for IUD insertion Insertion of intrauterine contraceptive device documented in this encounter [facility] Discharge instructions Note Date & Type Note Facility Hospital Discharge instructions Additional Instructions Take Phenergan as prescribed for nausea vomiting. Increase your intake of fluids and rest. Take Carafate and omeprazole as prescribed. He can take Tylenol as needed for recurrent headache. Follow-up with neurologist below regarding your frequent migraines. Follow-up with the PCP for any persistent symptoms 5 to 7 days. [facility] Work Phone: Summary Purpose Family History No Family History Records FoundNo Family History Records FoundNo Family History Records Found Advance Directives Advance Directive Response Recorded Date/ Time Advance Directives No June 19, 2021 2:05pm Chief Complaint and Reason for Visit Chief Complaint vomiting blood Additional Source Comments INFORMATION SOURCE (unrecogn ized section and content) DATE CREATED AUTHOR 03/13/2022 [facility] DATE CREATED AUTHOR AUTHOR'S ORGANIZ ATION 11/16/2023 [facility] DATE CREATED AUTHOR AUTHOR'S ORGANIZ ATION 07/15/2024 [facility] EPIC Care Teams (unrecognized sec tion and content) Team Status: Active Member Role Status Dates Mathew Kurtz DO Primary Care Provider Active Team Status: Inactive Member Role Status Dates Mathew Kurtz DO Primary Care Provider Active Start: November 14, 2023 End: November 15, 2023 Mathew Hawley DO Emergency Provider Active Start: November 14, 2023 End: November 15, 2023 [employer]r Relationship Specialty Start Date End Date Mathew Kurtz DO [address] [place] [address] PCP - General Family Medicine 01/28/23 Mathew Kurtz DO [address] [place] [address] PCP - Medical [employer] 08/26/08 08/25/99 [employer] Relationship Specialty Start Date End Date Mathew Kurtz DO [address] [place] [address] PCP - General Family Medicine 01/28/23 Mathew Kurtz, [address] [place] [address] PCP - Medical [employer] 08/26/08 08/25/99 [employer]r Relationship Specialty Start Date End Date Mathew Kurtz DO [address] [place] [address] PCP - General Family Medicine 01/28/23 Mathew Kurtz DO [address] [place] [address] PCP - Medical [employer] 08/26/08 08/25/99 [employer]r Relationship Specialty Start Date End Date Mathew Kurtz DO [address] [place] [address] PCP - General Family Medicine 01/28/23 Mathew Kurtz, DO [address] [place] [address] PCP - Medical [employer] 08/26/08 08/25/99 Goals (unrecognized section and content) Goals may be documented in a n alternate section Reason for Visit (unrecogniz ed section and content) Reason Comments Contraception Reason Comments Contraception Pt present today for Mirena insertion FOR RECORDS PERTAINING TO PATIENTS WHO ARE [...] BE BASED ON THE PRIMARY CLINICAL RECORDS. [employer] [facility]. provides no warranty or guarantee of the accuracy or completeness of information in this document.
== END 2024-07-27 13:46 | disposition home or self-care (01) ==
LOC: NOMS 13:45
PROVIDERS: PCP Family Medicine; Visit Provider Obstetrics & Gynecology
DX: Z30.431 Encounter for routine checking of intrauterine contraceptive device (principal)
CPT/HCPCS: 76830

== ENCOUNTER 2025-03-09 18:07 | Emergency (ER) | payer OTHER, SELFPAY ==
[2025-03-09 18:13] VITALS: BP 120/89; PULSE 84; TEMP 36.7; O2SAT 99; BMI 22.3
--- NOTE | 2025-03-09 18:41 | ED.GENADUL1 ---
HPI HPI - General Adult General Chief complaint: Skin/Abscess/Foreign Body Stated complaint: CUT MIDDLE FINGER LEFT HAND Time Seen by Provider: 03/09/25 18:33 Source: patient Mode of arrival: walk-in History of Present Illness HPI narrative: 19-year-old female presents here with a chief complaint of a superficial laceration to the left middle finger on the dorsal aspect just above the PIP joint. Injury is superficial with less than 1 cm in length. She was using a pair of scissors and accidentally cut herself with the scissors. She is not up-to-date on tetanus immunization. She states it bled shortly but is not bled throughout the day. No redness or irritation noted. Related Data Home Medications ?Medication ?Instructions ?Recorded ?Confirmed desogestrel 0.15 mg-ethinyl 1 tab PO DAILY 11/08/23 11/08/23 estradiol 0.03 mg tablet (Enskyce) medroxyprogesterone 150 mg/mL 150 mg IM .[id number] 11/08/23 11/08/23 intramuscular suspension topiramate 25 mg tablet 25 mg PO DAILY 11/08/23 11/08/23 Previous Rx's ?Medication ?Instructions ?Recorded ondansetron 4 mg disintegrating 4 mg PO TID PRN nausea and 11/08/23 tablet vomiting 3 days #10 tabs ketorolac 10 mg tablet 10 mg PO TID PRN pain #10 tabs 02/02/24 methocarbamol 750 mg tablet 750 mg PO TID PRN pain #20 tabs 02/02/24 ondansetron 4 mg disintegrating 4 mg PO Q6H PRN nausea and 02/02/24 tablet vomiting #12 tabs Allergies Allergy/AdvReac Type Severity Reaction Status Date / Time Penicillins AdvReac Mild Verified 02/02/24 17:48 Opioid HPI Opioid Management Most Recent Opioid Data: Last Pain Scale 4 11/08/23, 18:11 Review of Systems ROS Status of ROS 10 or more systems reviewed and unremarkable except as noted in history and below PFSH PFSH Social History Little interest or pleasure in doing things: not at all Feeling down, depressed, or hopeless: not at all Exam Narrative Exam Narrative: All Systems are negative except as noted/marked.All systems reviewed and otherwise negative Nurses note and vital signs reviewed and patient is not hypoxic. General: The patient appears well and in no apparent distress. Patient is resting comfortably on cart. Skin: Warm, dry, no pallor noted. There is no rash noted. Head: Normocephalic, atraumatic Eye: Normal conjunctiva, no drainage, EOMI. PERRL Musculoskeletal: Laceration left middle finger just above the PIP joint care superficial in nature, no deep structure damage full range of motion, no active bleeding Neurological: A&O x4, normal speech Psychiatric: Cooperative Constitutional Vital Signs, click to edit/add: Last Vital Signs Temp 98.1 F 03/09/25 18:13 Pulse 84 03/09/25 18:13 Resp 16 03/09/25 18:13 BP 120/89 03/09/25 18:13 Pulse Ox 99 03/09/25 18:13 O2 Del Method Room Air 03/09/25 18:13 Course Vital Signs Vital signs: Vital Signs Temperature 98.1 F 03/09/25 18:13 Pulse Rate 84 03/09/25 18:13 Respiratory Rate 16 03/09/25 18:13 Blood Pressure 120/89 03/09/25 18:13 Pulse Oximetry 99 03/09/25 18:13 Oxygen Delivery Method Room Air 03/09/25 18:13 Temperature 98.1 F 03/09/25 18:13 Pulse Rate 84 03/09/25 18:13 Respiratory Rate 16 03/09/25 18:13 Blood Pressure 120/89 03/09/25 18:13 Pulse Oximetry 99 03/09/25 18:13 Oxygen Delivery Method Room Air 03/09/25 18:13 Medical Decision Making [facility] Narrative Medical decision making narrative: 19-year-old female presents here with a chief complaint of a superficial laceration to the left middle finger on the dorsal aspect just above the PIP joint. Injury is superficial with less than 1 cm in length. She was using a pair of scissors and accidentally cut herself with the scissors. She is not up-to-date on tetanus immunization. She states it bled shortly but is not bled throughout the day. No redness or irritation noted. Left hand was soaked in a Hibiclens normal saline. Area was then dried and inspected by myself no deep structure damage noted. Wound was easily reapproximated using Dermabond. Splint was then applied by nursing staff extremity neurovascular intact for and after application. Splint was just applied to help with healing process. Patient may take it off at night when she is not using her hands. She is right-hand dominant. She will be discharged home with skin adhesive instructions and up-to-date on her tetanus immunization here. Differential Diagnosis Differential Diagnosis: laceration, abrasion Medical Records Medical records reviewed: Yes I reviewed the patient's medical records Discharge Plan Discharge Chief Complaint: Skin/Abscess/Foreign Body Clinical Impression: Laceration of finger Patient Disposition: Home, Self-Care Time of Disposition Decision: 18:39 Condition: Good Prescriptions / Home Meds: No Action topiramate 25 mg tablet 25 mg PO DAILY desogestrel-ethinyl estradiol [Enskyce] 0.15-0.03 mg tablet 1 tab PO DAILY medroxyprogesterone 150 mg/mL suspension 150 mg IM .[id number] ondansetron 4 mg tablet,disintegrating 4 mg PO TID PRN (Reason: nausea and vomiting) 3 Days Qty: 10 0RF ketorolac 10 mg tablet 10 mg PO TID PRN (Reason: pain) Qty: 10 0RF methocarbamol 750 mg tablet 750 mg PO TID PRN (Reason: pain) Qty: 20 0RF ondansetron 4 mg tablet,disintegrating 4 mg PO Q6H PRN (Reason: nausea and vomiting) Qty: 12 0RF Print Language: Croatian Instructions: Skin Adhesive Care (ED), Laceration Without Closure (ED) Referrals: MATHEW KURTZ [Primary Care Provider, Unknown] - 1 week
--- OUTSIDE RECORDS SUMMARY | 2025-03-09 19:08 | XMS_ITS | CCD ---
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 Name Role Phone DO Mathew Kurtz Primary Care Provider [phone] DO Mathew Hawley Emergency Provider Unavai Mathew Rodriguez DO Primary Care Provider Mathew Kurtz DO Unavailable Mathew Kurtz Attending Unavailable Petmariaelena, Mathew Primary Care Unavailable Petrenanick, Mathew Admitting Unavailable HEMMEHNAZ MAC Attending Unavailable PETZNICK, MATHEW Turner Attending Unavailable PETZNICKMATHEW Attending Unavailable PETZNICK, MATHEW Turner Referring Unavailable PETZNICK, MATHEW Turner Referring Unavailable DIDIONJARED L Attending Unavailable MARGARITA KANG Attending Unavailable KARON QUIROGA Attending Unavailable MARGARITA KANG Attending Unavailable KARON QUIROGA Attending Unavailable KARON QUIROGA Attending Unavailable ANISHA GELLER Attending Unavailable AI TAPIA Attending Unavailable PETMARIAELENA, MATHEW Turner Referring Unavailable Allergies Allergy Classification Reported Allergen(s) Allergy Type Date of Onset Reaction(s) Facility (20 sources) almond allergenic extract Drug Allergy 02-13-20 23 GI intolerance [facility] Healthcare (20 sources) Amoxicillin Drug Allergy 11-14-19 24 Rash [facility] Healthcare (20 sources) Benzathine penicillin - chemical Propensity to adverse reactions 01-29-20 [facility] Healthcare (20 sources) Cyproheptadine Drug Allergy 02-13-20 23 Other [facility] Healthcare (20 sources) Penicillins Propensity to adverse reactions 04-24-20 23 Rash [facility] Healthcare (1 source) Amoxicillin Drug Allergy 11-14-19 [facility] Repository Medications Current Medications Medication Drug Class(es) Dates Sig (Normalized) Sig (Original) Albuterol-Budesonide (Airsupra) -80 MCG/ACT aerosol (1 source) Start: 03-03-2025 take 2 puff(s) by inhalation every four hours Albuterol-Budesonid e (Airsupra) 90-80 MCG/ACT aerosol Indications: Reactive airway disease without complication, unspecified asthma severity, unspecified whether persistent (HCC) Inhale 2 puffs every 4 (four) hours if needed (SOB or wheezing) 10.7 g 5 03/03/2025 Active levonorgestrel 0.716668 mg/hr intrauterine system (20 sources) Progestin, Progestin-containi ng Intrauterine Device Start: 07-13-2024 End: 07-12-2029 Levonorgestrel intrauterine device 52 mg Start: 07-13-2024 End: 07-13-2024 Levonorgestrel intrauterine device Start: 07-13-2024 End: 07-13-2024 Once PRN Procedure, Starting on 07/13/24 at 1030, For 1 dose levothyroxine sodium 0.125 mg oral tablet (20 sources) l-Thyroxine Start: 08-06-2024 End: 10-05-2024 take 1 tablet by mouth before mealtime levothyroxine (Synthroid, Levoxyl) 125 MCG tablet Indications: Alba's disease TAKE 1 TABLET (125 MCG) BY MOUTH IN THE MORNING. TAKE BEFORE MEALS. 90 tablet 09/01/2024 Active Start: 05-05-2024 End: 05-05-2025 take 1 tablet by mouth before mealtime levothyroxine (Synthroid) 112 MCG tablet Indications: Alba's disease (CMS/HCC) Take 1 tablet (112 mcg) by mouth in the morning. Take before meals. 90 tablet 05/05/2024 05/05/2025 Active Start: 01-15-2024 take 1 tablet by celia th before mealtime levothyroxine (Synthroid) 100 MCG tablet Indications: Alba's disease (CMS/HCC) Take 1 tablet (100 mcg) by mouth in the morning. Take before meals. 90 tablet 01/15/2024 Active 1 ml medroxyPROGESTERone acetate 150 mg/ml injection (20 sources) Progestin Start: 01-10-2024 End: 07-13-2024 medroxyPROGESTERone (Depo-Provera) 150 MG/ML injection Indications: Menorrhagia with regular cycle INJECT 1 ML (150 MG) INTO THE SHOULDER, THIGH, OR BUTTOCKS EVERY 3 MONTHS 1 mL 3 01/10/2024 07/13/2024 Discontinued (Therapy completed) Start: 10-18-2023 End: 07-13-2024 medroxyPROGESTERone (Depo-Pr overa) injection 150 mg meloxicam 15 mg oral tablet (8 sources) Nonsteroidal Anti-inflammatory Drug Start: 01-22-2025 End: 02-21-2025 take 1 tablet by mouth once daily meloxicam (Mobic) 15 MG tablet Take 15 mg by mouth Daily 02/18/2025 Active omeprazole 40 mg delayed release oral capsule (1 source) Proton Pump Inhibitor Start: 11-15-2023 take 40 mg by mouth once daily Omeprazole Active 40 MG PO Daily November 15, 2023 12:00am promethazine hydrochloride 25 mg oral tablet (1 source) Phenothiazine Start: 11-15-2023 take 25 mg by mouth three times daily Promethazine Active 25 MG PO Three times daily 07 01November 15, 2023 12:00am rimegepant 75 mg disintegrating oral tablet (16 sources) Start: 11-30-2024 Nurtec 75 MG tablet dispersible 11/30/2024 Active Start: 08-12-2024 End: 09-11-2024 take 1 tablet by mouth once Rimegepant Sulfate (Nurtec ) 75 MG tablet dispersible Indications: Chronic migraine with aura without status migrainosus, not intractable (CMS/HCC) Take 1 tablet by mouth 1 (one) time if needed (onset of migraine can take up to 16 pills per month) 16 tablet 11 08/12/2024 09/11/2024 Active ubrogepant 100 mg oral table t (5 sources) Start: 05-18-2024 End: 06-17-2024 Ubrelvy 100 MG tablet 2023 Active Completed/Discontinued Medications Medication Drug Class(es) Dates Sig (Normalized) Sig (Original) [id number] 200 actuat albuterol 0.09 mg/actuat metered dose inhaler (10 sources) beta2-Adrenergic Agonist Start: 12-04-2024 End: 03-01-2025 take 2 puff(s) by inhalation every six hours for wheezing albuterol HFA (Ventolin HFA) 90 mcg/act inhaler Indications: Reactive airway disease without complication, unspecified asthma severity, unspecified whether persistent (HCC) Inhale 2 puffs every 6 (six) hours if needed for wheezing or shortness of breath 1 g 3 12/04/2024 03/01/2025 Discontinued (Therapy completed) 21 day ethinyl estradiol 0.851738 mg/hr / etonogestrel 0.005 mg/hr vaginal system (11 sources) Progestin, Estrogen Start: 04-20-2024 End: 07-13-2024 etonogestrel-ethin yl estradiol (NuvaRing) 0.12-0.015 MG/24HR vaginal ring Indications: Irregular menstrual cycle , Bleeding disorder (CMS/HCC) Insert vaginally and leave in place for 21 consecutive days (3 weeks), then remove. Wait for 7 days before inserting new ring. 1 each 3 04/20/2024 07/13/2024 Discontinued (Therapy completed) ferrous sulfate 44 mg/ml oral solution (2 sources) Start: 03-04-2024 End: 04-20-2024 take 5 mL by mouth once daily Ferrous Sulfate 220 (44 Fe) MG/5ML solution Take 5 mL by mouth Daily 03/04/2024 04/20/2024 Discontinued (Therapy completed) hydrOXYzine hydrochloride 25 mg oral tablet (3 sources) Antihistamine Start: 02-24-2024 End: 04-20-2024 take 1 tablet by mouth every eight hours hydrOXYzine HCl (Atarax) 25 MG tablet Indications: Rash , Pityriasis rosea Take 1 tablet (25 mg) by mouth every 8 (eight) hours if needed for itching for up to 10 days 30 tablet 1 02/24/2024 04/20/2024 Discontinued (Therapy completed) imipramine hydrochloride 25 mg oral tablet (19 sources) Tricyclic Antidepressant End: 12-04-2024 take 1 tablet by mouth at bedtime imipramine (Tofranil) 25 MG tablet Take 25 mg by mouth at bedtime 12/04/2024 Discontinued ondansetron 4 mg disintegrating oral tablet (19 sources) Serotonin-3 Receptor Antagonist Start: 02-03-2024 End: 12-04-2024 ondansetron ODT (Zofran-ODT) 4 MG disintegrating tablet DISSOLVE 1 TABLET ON THE TONGUE EVERY 6 HOURS NEEDED FOR NAUSEA AND VOMITING 02/03/2024 12/04/2024 Discontinued sucralfate 1000 mg oral tablet (4 sources) Aluminum Complex Start: 11-15-2023 End: 04-20-2024 sucralfate (Carafate) 1 g tablet Twice daily 11/15/2023 04/20/2024 Discontinued (Therapy completed) sulfamethoxazole 40 mg/ml / trimethoprim 8 mg/ml oral suspension (6 sources) Dihydrofolate Reductase Inhibitor Antibacterial, Sulfonamide Antimicrobial Start: 02-14-2025 End: 03-01-2025 sulfamethoxazole-t rimethoprim (Bactrim) 200-40 MG/5ML suspension Indications: Finger infection Take 10 mL twice a day for 7 days 140 mL 02/14/2025 03/01/2025 Discontinued (Therapy completed) topiramate 25 mg oral capsule (3 sources) Start: 01-16-2024 End: 04-20-2024 take 2 capsules by mouth in the morning topiramate (Topamax Sprinkle) 25 MG capsule Indications: Migraine without aura and without status migrainosus, not intractable (CMS/HCC) Take 2 capsules (50 mg) by mouth in the morning and 2 capsules (50 mg) before bedtime. Do not crush or chew.. 120 capsule 11 01/16/2024 04/20/2024 Discontinued (Therapy completed) Problems Active Problems Problem Classification Problem Date Documented Date Episodic/Chronic Acute and chronic tonsillitis (20 sources) Amygdalolith; Translations: [Other chronic diseases of tonsils and adenoids] Onset: 02-12-2023 02-12-2023 Chronic Anxiety disorders (20 sources) Anxiety; Translations: [Anxiety disorder, unspecified] Onset: 02-12-2023 02-12-2023 Chronic Asthma (3 sources) Reactive airway disease; Translations: [Unspecified asthma, uncomplicated] 12-04-2024 Chronic Attention-deficit, conduct, and disruptive behavior disorders (20 sources) Attention deficit hyperactivity disorder, predominantly inattentive type; Translations: [Attention-deficit hyperactivity disorder, predominantly inattentive type] Onset: 02-12-2023 02-12-2023 Chronic Headache; including migraine (20 sources) Migraine; Translations: [Migraine, unspecified, not intractable, without status migrainosus] Onset: 02-12-2023 11-15-2023 Chronic Joint disorders and dislocations; trauma-related (2 sources) Patellofemoral syndrome of right knee; Translations: [Patellofemoral disorders, right knee] 01-22-2025 Chronic Malaise and fatigue (20 sources) Fatigue; Translations: [Chronic fatigue, unspecified] Onset: 02-12-2023 02-12-2023 Chronic Menstrual disorders (20 sources) Menorrhagia; Translations: [Excessive and frequent menstruation with regular cycle] Onset: 02-12-2023 Resolved: 04-24-2023 02-12-2023 Chronic Other lower respiratory disease (2 sources) Dyspnea; Translations: [Shortness of breath] 01-24-2025 Episodic Other lower respiratory disease (1 source) Shortness of breath; Translations: [Shortness of breath] Onset: 01-11-2025 Episodic Other non-traumatic joint disorders (2 sources) Pain in right knee; Translations: [Pain in joint, lower leg] 01-22-2025 Episodic Other skin disorders (2 sources) Peeling of skin; Translations: [Changes in skin texture] 02-14-2025 Episodic Other upper respiratory infections (20 sources) Chronic sinusitis; Translations: [Chronic sinusitis, unspecified] Onset: 02-12-2023 Resolved: 04-24-2023 04-24-2023 Chronic Skin and subcutaneous tissue infections (2 sources) Infection of finger; Translations: [Local infection of the skin and subcutaneous tissue, unspecified] 02-14-2025 Episodic Thyroid disorders (20 sources) Alba thyroiditis; Translations: [Autoimmune thyroiditis] Onset: 02-12-2023 Resolved: 04-24-2023 02-12-2023 Chronic Past or Other Problems Problem Classification Problem Date Documented Da te Episodic/Chronic Coagulation and hemorrhagic disorders (2 sources) Blood coagulation disorder; Translations: [Hemorrhagic condition, unspecified] 04-20-2024 Episodic Nausea and vomiting (20 sources) Nausea and vomiting; Translations: [Nausea with vomiting, unspecified] Onset: 11-19-2023 11-15-2023 Episodic Nutritional deficiencies (20 sources) Vitamin D deficiency; Translations: [Vitamin D deficiency, unspecified] Onset: 02-12-2023 Resolved: 04-24-2023 04-24-2023 Chronic Other aftercare (20 sources) Patient encounter status; Translations: [Encounter for follow-up examination after completed treatment for conditions other than malignant neoplasm] Onset: 02-12-2023 Resolved: 04-24-2023 04-24-2023 Episodic Other female genital disorders (20 sources) Pain in female genitalia on intercourse; Translations: [Unspecified dyspareunia] Onset: 02-12-2023 Resolved: 04-24-2023 04-24-2023 Chronic Results Test Name Value Interpretation Reference Range Facility XR CHEST 2 VIEWSon XR CHEST 2 VIEWS TITLE OF EXAM: XR CHEST 2 VIEWS REASON FOR EXAM: Chronic shortness of breath TECHNIQUE: Two radiographs of the chest. COMPARISON: None FINDINGS: Normal lung expansion. Diffuse small airway prominence. No consolidation. No significant effusion or pneumothorax. The cardiomediastinal silhouette is normal. No acute osseous or upper abdominal abnormality. IMPRESSION: Diffuse small airway prominence is within physiologic variation for age, though could reflect infectious or inflammatory bronchitis/bronchioli tis. DICTATED ON: 01/22/2025 10:02 AM This report has been electronically signed in approved by the interpreting radiologist. Normal Not Available XR KNEE 3 VIEWS RIGHTon 12-26 XR KNEE 3 VIEWS RIGHT TITLE OF EXAM: XR KNEE 3 VIEWS RIGHT REASON FOR EXAM: Chronic right patellofemoral syndrome - worse last three days, no known injury. TECHNIQUE: 3 radiographs of the right knee COMPARISONS: None. FINDINGS: No fracture. Anatomic alignment of the bones. Morphologically normal osseous structures. Normal medial and lateral joint spaces. No effusion or focal soft tissue abnormality. IMPRESSION: Radiographically normal right knee. DICTATED ON: 01/22/2025 10:01 AM This report has been electronically signed and approved by the interpreting radiologist. Normal Not Available XR Knee - right 3 Viewson TITLE OF EXAM: XR KNEE 3 VIEWS RIGHT REASON FOR EXAM: Chronic right patellofemoral syndrome - worse last three days, no known injury. TECHNIQUE: 3 radiographs of the right knee COMPARISONS: None. FINDINGS: No fracture. Anatomic alignment of the bones. Morphologically normal osseous structures. Normal medial and lateral joint spaces. No effusion or focal soft tissue abnormality. IMPRESSION: Radiographically normal right knee. DICTATED ON: 01/22/2025 10:01 AM This report has been electronically signed and approved by the interpreting radiologist. IMAGING Deejay Rowe MD - 01/22/2025 TITLE OF EXAM: XR KNEE 3 VIEWS RIGHT REASON FOR EXAM: Chronic right patellofemoral syndrome - worse last three days, no known injury. TECHNIQUE: 3 radiographs of the right knee COMPARISONS: None. FINDINGS: No fracture. Anatomic alignment of the bones. Morphologically normal osseous structures. Normal medial and lateral joint spaces. No effusion or focal soft tissue abnormality. IMPRESSION: Radiographically normal right knee. DICTATED ON: 01/22/2025 10:01 AM This report has been electronically signed and approved by the interpreting radiologist. [facility] Radiology Study observation (narrative) [facility] XR Knee - right 3 ViewsOrder ed By: Deejay Rowe on 01-22-2025 [facility] Work Phone: HCG ( test) Ql (U)o n 07-13-2024 Interpretation and review of laboratory results Normal [facility] Preg Test, Ur Negative Negative [facility] IUD Insertionon 07-13-2024 Dilma Monte LPN 07/13/2024 1:32 PM IUD Insertion Performed by: Karon Quiroga DO Authorized by: Karon Quiroga DO Procedure: IUD insertion Consent obtained by patient, parent, or legal power of attorney general - including discussion of procedure risks and [...] placement: no Intended removal date: 5 years [facility] IUD InsertionOrdered By: Bianca Monte on 07-13-2024 [facility] No Panel Informationon 04-23 Performed at: 01 - [facility] [address] [id number] Armature Coil Winder: Yvan De La Cruz PhD, Phone: [phone] [facility] T4Fon 04-23-2024 Free T4 [Mass/Vol] 1.26 ng/dL 0.93 - 1. 60 ng/dL [facility] TSH RFX ON ABNORMAL TO FREE T4on 04-23-2024 Interpretation and review of laboratory results Abnormal [facility] TSH Qn 5.640 m[IU]/L High [facility] Alanine aminotransferase [En zymatic activity/volume] in Serum or PlasmaOrdered By: PROVIDER TEMP on 11-14-2023 ALT [Catalytic activity/Vol] 5 U/L 7-52 [facility] Albumin [Mass/volume] in Ser um or Plasma by Bromocresol green (BCG) dye binding methoOrdered By: PROVIDER TEMP on 11-14-2023 Albumin BCG dye [Mass/Vol] 4.8 g/dL 3.5-5.7 [facility] Alkaline phosphatase [Enzyma tic activity/volume] in Serum or PlasmaOrdered By: PROVIDER TEMP on 11-14-2023 ALP [Catalytic activity/Vol] 53 U/L 34-104 [facility] Aspartate aminotransferase [ Enzymatic activity/volume] in Serum or PlasmaOrdered By: PROVIDER TEMP on 11-14-2023 AST [Catalytic activity/Vol] 12 U/L 13-39 [facility] Automated epithelial cells c ount in urine sediment (number/area)Ordered By: Mathew Hawley on 11-14-2023 Epithelial cells Auto (Urine sed) [#/Area] 1-2 [HPF] 0-2 [facility] Automated erythrocytes count in urine sediment (number/area)Ordered By: Mathew Hawley on 11-14-2023 RBC Auto (Urine sed) [#/Area] 10-19 [HPF] 0-4 [facility] Automated leukocytes count i n urine sediment (number/area)Ordered By: Mathew Hawley on 11-14-2023 WBC Auto (Urine sed) [#/Area] 0-1 [HPF] 0-4 [facility] Basophils Auto (Bld) [#/Vol] Ordered By: PROVIDER TEMP on 11-14-2023 Basophils (Bld) [#/Vol] 0.1 10*3/uL 0.0-0.2 [facility] Basophils/100 WBC Auto (Bld) Ordered By: PROVIDER TEMP on 11-14-2023 Basophils/100 WBC (Bld) 1.4 % . F [facility] Bilirubin Test strip Ql (U)O rdered By: Mathew Hawley on 11-14-2023 Bilirubin Ql (U) Negative Negative [facility] Bilirubin.total [Mass/volume ] in Serum or PlasmaOrdered By: PROVIDER TEMP on 11-14-2023 Bilirubin [Mass/Vol] 1.1 mg/dL 0.3-1.0 [facility] Calcium [Mass/volume] in Ser um or PlasmaOrdered By: PROVIDER TEMP on 11-14-2023 Calcium [Mass/Vol] 9.6 mg/dL 8.6-10.3 [facility] Carbon dioxide, total [Moles /volume] in Serum or PlasmaOrdered By: PROVIDER TEMP on 11-14-2023 CO2 [Moles/Vol] 21.6 mmol/L 21.0-31.0 [facility] Chloride [Moles/volume] in S edy or PlasmaOrdered By: PROVIDER TEMP on 11-14-2023 Chloride [Moles/Vol] 104 mmol/L 98-107 [facility] Color Auto (U)Ordered By: Zuleima Hawley on 11-14-2023 Color (U) Yellow Yellow [facility] Creatinine [Mass/volume] in Serum or PlasmaOrdered By: PROVIDER TEMP on 11-14-2023 Creatinine [Mass/Vol] 0.72 mg/dL 0.60-1.20 [facility] Eosinophils Auto (Bld) [#/Vo l]Ordered By: PROVIDER TEMP on 11-14-2023 Eosinophils (Bld) [#/Vol] 0.0 10*3/uL 0.0-0.45 [facility] Eosinophils/100 WBC Auto (Bl d)Ordered By: PROVIDER TEMP on 11-14-2023 Eosinophils/100 WBC (Bld) 0.4 % . [facility] Erythrocyte distribution wid th Auto (RBC) [Ratio]Ordered By: PROVIDER TEMP on 11-14-2023 Erythrocyte distribution width (RBC) [Ratio] 14.2 % 11.9-15.3 [facility] Globulin Calc (S) [Mass/Vol] Ordered By: PROVIDER TEMP on 11-14-2023 Globulin (S) [Mass/Vol] 3.0 g/dL F [facility] Glucose [Mass/volume] in Ser um or PlasmaOrdered By: PROVIDER TEMP on 11-14-2023 Glucose [Mass/Vol] 82 mg/dL 70-100 [facility] Comment on above: ADA recommended refe rence rangeRandom Glucose Reference Range is dependent on time and content of last meal. Glucose of more than 200 mg/dL in a nonstressed, ambulatory subject supports the diagnosis of Diabetes Mellitus. HCG ( test) IA.rapi d Ql (U)Ordered By: PROVIDER TEMP on 11-14-2023 HCG ( test) Ql (U) Negative [facility] Hematocrit Auto (Bld) [Volum e fraction]Ordered By: PROVIDER TEMP on 11-14-2023 Hematocrit (Bld) [Volume fraction] 39.5 % 34.0-46.4 [facility] Hemoglobin [Mass/volume] in BloodOrdered By: PROVIDER TEMP on 11-14-2023 Hemoglobin (Bld) [Mass/Vol] 12.9 g/dL 11.8-15.4 [facility] Ketones Auto test strip (U) [Mass/Vol]Ordered By: Mathew Hawley on 11-14-2023 Ketones (U) [Mass/Vol] 4+ Negative Fi [facility] Leukocytes [#/volume] correc lou for nucleated erythrocytes in Blood by Automated counOrdered By: PROVIDER TEMP on 11-14-2023 WBC corrected for nucl RBC Auto (Bld) [#/Vol] 7.3 10*3/uL 3.8-11.6 [facility] Lymphocytes Auto (Bld) [#/Vo l]Ordered By: PROVIDER TEMP on 11-14-2023 Lymphocytes (Bld) [#/Vol] 1.4 10*3/uL 1.00-4.8 [facility] Lymphocytes/100 WBC Auto (Bl d)Ordered By: PROVIDER TEMP on 11-14-2023 Lymphocytes/100 WBC (Bld) 19.3 % . [facility] MCH Auto (RBC) [Entitic mass ]Ordered By: PROVIDER TEMP on 11-14-2023 MCH (RBC) [Entitic mass] 28.4 pg 24.7-34.3 [facility] MCHC Auto (RBC) [Mass/Vol]Or dered By: PROVIDER TEMP on 11-14-2023 MCHC (RBC) [Mass/Vol] 32.7 g/dL 32.0-35.0 [facility] MCV Auto (RBC) [Entitic vol] Ordered By: PROVIDER TEMP on 11-14-2023 MCV (RBC) [Entitic vol] 86.8 fL 80-100 F [facility] Monocyte distribution width [Entitic volume] in Blood by AutomatedOrdered By: PROVIDER TEMP on 11-14-2023 Monocyte distribution width Auto (Bld) [Entitic vol] 18.50 % 0.00-20.00 [facility] Monocytes Auto (Bld) [#/Vol] Ordered By: PROVIDER TEMP on 11-14-2023 Monocytes (Bld) [#/Vol] 0.3 10*3/uL 0.0-0.8 [facility] Monocytes/100 WBC Auto (Bld) Ordered By: PROVIDER TEMP on 11-14-2023 Monocytes/100 WBC (Bld) 4.0 % . F [facility] Neutrophils Auto (Bld) [#/Vo l]Ordered By: PROVIDER TEMP on 11-14-2023 Neutrophils (Bld) [#/Vol] 5.4 10*3/uL 1.8-7.7 [facility] Neutrophils/100 WBC Auto (Bl d)Ordered By: PROVIDER TEMP on 11-14-2023 Neutrophils/100 WBC (Bld) 74.9 % . [facility] Nitrite Test strip Ql (U)Ord ered By: Mathew Hawley on 11-14-2023 Nitrite Ql (U) Negative Negative [facility] No Panel InformationOrdered By: PROVIDER TEMP on 11-14-2023 Estimated GFR (CKD-EPI) > 60.0 mL/Min [facility] Creatinine Clearance (Chem 108.52 [facility] Nucleated erythrocytes [Pres ence] in Blood by Automated countOrdered By: PROVIDER TEMP on 11-14-2023 Nucleated RBC Auto Ql (Bld) 0.1 /100{WBC} 0-0.5 [facility] Platelet mean volume Auto (B ld) [Entitic vol]Ordered By: PROVIDER TEMP on 11-14-2023 Platelet mean volume (Bld) [Entitic vol] 9.4 fL 6.3-10.7 [facility] Platelets Auto (Bld) [#/Vol] Ordered By: PROVIDER TEMP on 11-14-2023 Platelets (Bld) [#/Vol] 332 10*3/uL 150-450 [facility] Potassium [Moles/volume] in Serum or PlasmaOrdered By: PROVIDER TEMP on 11-14-2023 Potassium [Moles/Vol] 4.0 mmol/L 3.5-5.1 [facility] Protein Auto test strip (U) [Mass/Vol]Ordered By: Mathew Hawley on 11-14-2023 Protein (U) [Mass/Vol] Negative Negative [facility] Protein [Mass/volume] in Ser um or PlasmaOrdered By: PROVIDER TEMP on 11-14-2023 Protein [Mass/Vol] 7.8 g/dL 6.4-8.9 [facility] RBC Auto (Bld) [#/Vol]Ordere d By: PROVIDER TEMP on 11-14-2023 RBC (Bld) [#/Vol] 4.55 10*6/uL 3.60-5.00 [facility] Serum or plasma albumin/glob ulin mass ratioOrdered By: PROVIDER TEMP on 11-14-2023 Albumin/Globulin [Mass ratio] 1.6 {ratio} [facility] Serum or plasma anion gap de terminationOrdered By: PROVIDER TEMP on 11-14-2023 Anion gap [Moles/Vol] 14.4 mmol/L 6.0-15.0 [facility] Sodium [Moles/volume] in Ser um or PlasmaOrdered By: PROVIDER TEMP on 11-14-2023 Sodium [Moles/Vol] 136 mmol/L 136-145 [facility] Specific gravity Auto test s trip (U) [Rel density]Ordered By: Mathew Hawley on 11-14-2023 Specific gravity (U) [Rel density] 1.026 1.001-1.030 [facility] Urea nitrogen [Mass/volume] in Serum or PlasmaOrdered By: PROVIDER TEMP on 11-14-2023 Urea nitrogen [Mass/Vol] 11 mg/dL 7-25 [facility] Urine bacteria detection by automated methodOrdered By: Mathew Hawley on 11-14-2023 Bacteria Auto Ql (U) None seen None Seen [facility] Urine clarity by refractomet ry automatedOrdered By: Mathew Hawley on 11-14-2023 Clarity Refractometry automated (U) Clear Clear [facility] Urine glucose measurement by automated test strip (mass/volume)Ordered By: Mathew Hawley on 11-14-2023 Glucose Auto test strip (U) [Mass/Vol] Normal mg/dL Normal [facility] Urine hemoglobin detection b y automated test stripOrdered By: Mathew Hawley on 11-14-2023 Hemoglobin Auto test strip Ql (U) 2+ Negative [facility] Urine leukocyte esterase det ection by automated test stripOrdered By: Mathew Hawley on 11-14-2023 Leukocyte esterase Auto test strip Ql (U) Negative Negative [facility] Urobilinogen Auto test strip (U) [Mass/Vol]Ordered By: Mathew Hawley on 11-14-2023 Urobilinogen (U) [Mass/Vol] Normal mg/dL Normal [facility] WBC Auto (Bld) [#/Vol]Ordere d By: PROVIDER BRYCE on 11-14-2023 WBC (Bld) [#/Vol] 7.3 10*3/uL 3.8-11.6 [facility] pH Auto test strip (U)Ordere d By: Mathew Hawley on 11-14-2023 pH (U) 6.0 [pH] 5.0-9.0 [facility] US Thyroidon 03-07-2022 US Thyroid EXAM: [...] by Giorgi Monroy on 03/07/2022 1037 Normal [facility] [employer] TSH w/ Reflex to Free T4on 1 10-17-2020 TSH 0.633 uIU/mL Normal 0.400-4.500 [facility] [employer] Comment on above: Performed By: #### T SH reflex FT4 #### [facility] [address] [facility] [place] [id number] Vital Signs Date Time Vital Sign Value Performing Clinician Facility 03-03-2025 09:00-0400 Body mass index (BMI) [Ratio] 22.14 kg/m2 [facility] 03-03-2025 09:00-0400 Body weight 58.51 kg [facility] DO Work Phone: [facility] 03-03-2025 09:00-0400 Diastolic blood pressure 82 mm[Hg] Ai Regina DO Work Phone: [facility] 03-03-2025 09:00-0400 Heart rate 95 /min Ai Regina DO Work Phone: [facility] 03-03-2025 09:00-0400 SaO2% (BldA) [Mass fraction] 95 % Ai Regina DO Work Phone: [facility] 03-03-2025 09:00-0400 Systolic blood pressure 122 mm[Hg] Ai Regina DO Work Phone: [facility] 03-01-2025 07:53-0400 Body height 162.6 cm Margarita Kang MD Work Phone: [facility] 03-01-2025 07:53-0400 Body mass index (BMI) [Ratio] 21.87 kg/m2 Margarita Kang MD Work Phone: [facility] 03-01-2025 07:53-0400 Body weight 57.79 kg Margarita Kang MD Work Phone: [facility] 03-01-2025 07:53-0400 Diastolic blood pressure 84 mm[Hg] Margarita Kang MD Work Phone: [facility] 03-01-2025 07:53-0400 Systolic blood pressure 116 mm[Hg] Margarita Kang MD Work Phone: [facility] 02-14-2025 09:17-0400 Body temperature 97.5 [degF] Jared Didion GAME TECHNICIAN Work Phone: [facility] 02-14-2025 09:17-0400 Diastolic blood pressure 70 mm[Hg] Jared Didion GAME TECHNICIAN Work Phone: [facility] 02-14-2025 09:17-0400 Heart rate 71 /min Jared Didion GAME TECHNICIAN Work Phone: [facility] 02-14-2025 09:17-0400 SaO2% (BldA) [Mass fraction] 97 % Jared Didion GAME TECHNICIAN Work Phone: [facility] 02-14-2025 09:17-0400 Systolic blood pressure 108 mm[Hg] Jared Andrade GAME TECHNICIAN Work Phone: [facility] 01-22-2025 10:17-0400 Body height 162.6 cm Mathew Petznick DO Work Phone: [facility] 01-22-2025 10:17-0400 Body mass index (BMI) [Ratio] 21.46 kg/m2 Mathew Petznick DO Work Phone: [facility] 01-22-2025 10:17-0400 Body temperature 97 [degF] Mathew Petznick DO Work Phone: [facility] 01-22-2025 10:17-0400 Body weight 56.7 kg Mathew Petznick DO Work Phone: [facility] 01-22-2025 10:17-0400 Diastolic blood pressure 68 mm[Hg] Mathew Petznick DO Work Phone: [facility] 01-22-2025 10:17-0400 Systolic blood pressure 102 mm[Hg] Mathew Petznick DO Work Phone: [facility] 12-04-2024 10:51-0400 Body height 162.6 cm Mathew Petznick DO Work Phone: [facility] 12-04-2024 10:51-0400 Body mass index (BMI) [Ratio] 21.28 kg/m2 Mathew Petznick DO Work Phone: [facility] 12-04-2024 10:51-0400 Body temperature 97.9 [degF] Mathew Petznick DO Work Phone: [facility] 12-04-2024 10:51-0400 Body weight 56.25 kg Mathew Petznick DO Work Phone: [facility] 12-04-2024 10:51-0400 Diastolic blood pressure 88 mm[Hg] Mathew Petznick DO Work Phone: [facility] 12-04-2024 10:51-0400 Heart rate 82 /min Mathew Kurtz DO Work Phone: [facility] 12-04-2024 10:51-0400 SaO2% (BldA) [Mass fraction] 99 % Mathew Kurtz DO Work Phone: [facility] 12-04-2024 10:51-0400 Systolic blood pressure 128 mm[Hg] Mathew Kurtz DO Work Phone: [facility] 08-31-2024 08:14-0500 Body height 162.6 cm Anisha Geller GAME TECHNICIAN Work Phone: [facility] 08-31-2024 08:14-0500 Body mass index (BMI) [Ratio] 21.66 kg/m2 Anisha Geller GAME TECHNICIAN Work Phone: [facility] 08-31-2024 08:14-0500 Body weight 57.24 kg Anisha Geller GAME TECHNICIAN Work Phone: [facility] 08-31-2024 08:14-0500 Diastolic blood pressure 84 mm[Hg] Anisha Geller GAME TECHNICIAN Work Phone: [facility] 08-31-2024 08:14-0500 Systolic blood pressure 135 mm[Hg] Anisha Geller GAME TECHNICIAN Work Phone: [facility] 07-13-2024 11:06-0500 Body mass index (BMI) [Ratio] 21.28 kg/m2 Karon Junaid DO Work Phone: [facility] 07-13-2024 11:06-0500 Body weight 56.25 kg Karon Junaid DO Work Phone: [facility] 07-13-2024 11:06-0500 Diastolic blood pressure 68 mm[Hg] Karon Junaid DO Work Phone: [facility] 07-13-2024 11:06-0500 Systolic blood pressure 102 mm[Hg] Karon Junaid DO Work Phone: [facility] 06-22-2024 08:35-0400 Body height 162.6 cm Karon Junaid DO Work Phone: [facility] 06-22-2024 08:35-0400 Body mass index (BMI) [Ratio] 21.46 kg/m2 Karon Junaid DO Work Phone: [facility] 06-22-2024 08:35-0400 Body weight 56.7 kg Karon Junaid DO Work Phone: [facility] 06-22-2024 08:35-0400 Diastolic blood pressure 76 mm[Hg] Karon Junaid DO Work Phone: [facility] 06-22-2024 08:35-0400 Systolic blood pressure 110 mm[Hg] Karon Juanid DO Work Phone: [facility] 05-18-2024 14:20-0400 Body height 162.6 cm Margarita Kang MD Work Phone: [facility] 05-18-2024 14:20-0400 Body mass index (BMI) [Ratio] 20.77 kg/m2 Margarita Kang MD Work Phone: [facility] 05-18-2024 14:20-0400 Body weight 54.88 kg Margarita Kang MD Work Phone: [facility] 04-20-2024 14:32-0400 Body mass index (BMI) [Ratio] 19.91 kg/m2 Karon Junaid DO Work Phone: [facility] 04-20-2024 14:32-0400 Body weight 52.62 kg Karon Junaid DO Work Phone: [facility] 04-20-2024 14:32-0400 Diastolic blood pressure 64 mm[Hg] Karon Junaid DO Work Phone: [facility] 04-20-2024 14:32-0400 Systolic blood pressure 108 mm[Hg] Karon Junaid DO Work Phone: [facility] 11-15-2023 00:56-0400 Diastolic blood pressure 60 mm[Hg] DO Mathew Petznick Work Phone: [facility] 11-15-2023 00:56-0400 Heart rate 95 /min DO Mathew Petznick Work Phone: [facility] 11-15-2023 00:56-0400 Respiratory rate 16 /min DO Mathew Petznick Work Phone: [facility] 11-15-2023 00:56-0400 SaO2% (BldA) [Mass fraction] 99 % DO Mathew Petznick Work Phone: [facility] 11-15-2023 00:56-0400 Systolic blood pressure 109 mm[Hg] DO Mathew Petznick Work Phone: [facility] 11-14-2023 23:42-0400 Body temperature 98.2 [degF] DO Mathew Petznick Work Phone: [facility] 11-14-2023 19:24-0400 Body height 162.56 cm DO Mathew Petznick Work Phone: [facility] 11-14-2023 19:24-0400 Body weight 54.7 kg DO Mathew Petznick Work Phone: [facility] Encounters Encounter Date Encounter Type Care Provider Facility Start: 03-03-2025 End: 03-03-2025 Bamboo flowsheet Ai Tapia DO Work Phone: [facility] Start: 03-03-2025 End: 03-03-2025 Bamboo flowsheet Ai Tapia DO Work Phone: [facility] Start: 03-03-2025 End: 03-03-2025 Office outpatient new 45 minutes Ai Tapia DO Work Phone: [facility] Comment on above: Reactive airway dise ase without complication, unspecified asthma severity, unspecified whether persistent (HCC) Start: 03-03-2025 End: 03-03-2025 ambulatory AI TAPIA Not Available Start: 03-01-2025 End: 03-01-2025 Bamboo flowsheet Margarita Kang MD Work Phone: [facility] Start: 03-01-2025 End: 03-01-2025 Bamboo flowsheet Margarita Kang MD Work Phone: [facility] Start: 03-01-2025 End: 03-01-2025 Office outpatient visit 25 minutes Margarita Kang MD Work Phone: [facility] Comment on above: Chronic migraine wit h aura without status migrainosus, not intractable (Primary Dx); Attention deficit hyperactivity disorder (ADHD), predominantly inattentive type Start: 03-01-2025 End: 03-01-2025 ambulatory MARGARITA KANG Not Available Start: 02-23-2025 End: 02-24-2025 Telephone encounter Mathew Kurtz DO Work Phone: [facility] FM 230 Start: 02-14-2025 End: 02-14-2025 ambulatory JARED L DIDION Not Available Start: 02-14-2025 End: 02-14-2025 Office outpatient visit 25 minutes Jared L Didion GAME TECHNICIAN Work Phone: [facility] Comment on above: Finger infection (Pr imary Dx); Peeling skin; Dermatillomania in adult Start: 01-22-2025 End: 01-22-2025 Bamboo flowsheet Mathew Turner Petznick DO Work Phone: [facility] Start: 01-22-2025 End: 01-22-2025 Bamboo flowsheet Mathew Turner Petznick DO Work Phone: [facility] 230 Start: 01-22-2025 End: 01-22-2025 ambulatory MATHEW KURTZ Not Available Start: 01-22-2025 End: 01-22-2025 Office outpatient visit 25 minutes Mathew Hassanick DO Work Phone: [facility] 230 Comment on above: Patellofemoral pain syndrome of right knee (Primary Dx); Right knee pain, unspecified chronicity; SOB (shortness of breath) Start: 01-22-2025 End: 01-22-2025 ambulatory MATHEW KURTZ Not Available Start: 01-11-2025 End: 01-11-2025 ambulatory Mathew Kurtz Facility:[facility] Start: 12-04-2024 End: 12-04-2024 Bamboo flowsheet Mathew Kurtz DO Work Phone: [facility] 230 Start: 12-04-2024 End: 12-04-2024 Bamboo flowsheet Mathew Hassanick DO Work Phone: [facility] 230 Start: 12-04-2024 End: 12-04-2024 Office outpatient visit 15 minutes Mathew Kurtz DO Work Phone: [facility] 230 Comment on above: Reactive airway dise ase without complication, unspecified asthma severity, unspecified whether persistent (CMS/HCC) (Primary Dx); Alba's disease (CMS/HCC); Migraine without aura and without status migrainosus, not intractable (CMS/HCC); Nausea Start: 12-04-2024 End: 12-04-2024 ambulatory MATHEW KURTZ Not Available Start: 09-19-2024 End: 09-19-2024 ambulatory MEHNAZ Quiana FIGUEROA Not Available Start: 08-31-2024 End: 08-31-2024 Bamboo flowsheet Anisha C Windnagel GAME TECHNICIAN Work Phone: [facility] Start: 08-31-2024 End: 08-31-2024 Bamboo flowsheet Anisha C Windnagel GAME TECHNICIAN Work Phone: [facility] Start: 08-31-2024 End: 08-31-2024 Office outpatient visit 25 minutes Anisha C Sophia GAME TECHNICIAN Work Phone: [facility] Comment on above: Chronic migraine wit h aura without status migrainosus, not intractable (CMS/HCC) (Primary Dx) Start: 08-31-2024 End: 08-31-2024 ambulatory ANISHA C WINDNAGEL Not Available Start: 08-10-2024 End: 08-10-2024 Telephone encounter Margarita Kang MD Work Phone: [facility] 210 Start: 07-13-2024 End: 07-13-2024 Patient encounter procedure Karon Junaid DO Work Phone: [facility] Comment on above: Encounter for IUD in sertion Start: 07-13-2024 End: 07-13-2024 ambulatory KARON JUNAID Not Available Start: 06-26-2024 End: 06-26-2024 ambulatory MEHNAZ HEMMER Not Available Start: 06-22-2024 End: 06-22-2024 Bamboo flowsheet Karon Junaid DO Work Phone: [facility] Start: 06-22-2024 End: 06-22-2024 Bamboo flowsheet Karon Junaid DO Work Phone: [facility] Start: 06-22-2024 End: 06-22-2024 Office outpatient visit 15 minutes Karon Junaid DO Work Phone: [facility] Comment on above: Irregular menstrual cycle (Primary Dx) Start: 06-22-2024 End: 06-22-2024 ambulatory KARON JUNAID Not Available Start: 06-15-2024 End: 06-15-2024 Bamboo flowsheet Karon Junaid DO Work Phone: [facility] Start: 06-15-2024 End: 06-15-2024 Bamboo flowsheet Karon Junaid DO Work Phone: [facility] Start: 05-18-2024 End: 05-18-2024 Bamboo flowsheet Margarita Kang MD Work Phone: [facility] Start: 05-18-2024 End: 05-18-2024 Bamboo flowsheet Margarita Kang MD Work Phone: [facility] Start: 05-18-2024 End: 05-18-2024 Office outpatient visit 25 minutes Margarita Kang MD Work Phone: [facility] Comment on above: Chronic migraine wit h aura without status migrainosus, not intractable (CMS/HCC) (Primary Dx) Start: 05-18-2024 End: 05-18-2024 ambulatory MARGARITA Yao KANG Not Available Start: 04-22-2024 End: 05-05-2024 Orders Only Mathew Kurtz DO Work Phone: [facility] External Department Unsolicited Start: 04-20-2024 End: 04-20-2024 flow sheet Karon Junaid DO Work Phone: [facility] Comment on above: Irregular menstrual cycle; Bleeding disorder (CMS/HCC) Start: 04-20-2024 End: 04-20-2024 ambulatory KARON JUNAID Not Available Start: 04-20-2024 End: 04-20-2024 Bamboo flowsheet Karon Junaid DO Work Phone: [facility] Start: 04-20-2024 End: 04-20-2024 Bamboo flowsheet Karon Junaid DO Work Phone: [facility] Start: 04-03-2024 End: 04-03-2024 ambulatory MEHNAZ FIGUEROA Not Available Start: 11-14-2023 End: 11-15-2023 Emergency department patient visit DO Mathew Kurtz Work Phone: [facility] Work Phone: Procedures Date Procedure Procedure Detail Performing Clinician Start: 01-22-2025 Radiologic examinati on knee 3 views Mathew Kurtz DO Work Phone: Start: 07-13-2024 Urine test visual color cmprsn meths Karon Junaid DO Work Phone: Start: 07-13-2024 IUD INSERTION Karon Julio Cesar io DO Work Phone: Start: 04-22-2024 T4F Mathew Kurtz DO Work Phone: Start: 04-22-2024 TSH RFX ON ABNORMAL TO FREE T4 Mathew Kurtz DO Work Phone: Plan of Treatment Date Care Activity Detail Author Start: 08-30-2025 End: 08-30-2025 Patient encounter procedure 08/30/2025 8:00 AM EST Office Visit [facility] [address] [place] [address] Margarita Kang MD [address] [facility] [address] [id number] [facility] Start: 05-13-2025 End: 05-13-2025 Patient encounter procedure 05/13/2025 8:45 AM EDT Office Visit [facility] [address] [place] [address] Ai Tapia DO [address] [place] [address] [facility] Start: 04-26-2025 Influenza vaccination [facility] Start: 03-03-2025 End: 03-03-2025 Patient encounter procedure [facility] Comment on above: Reactive airway dise ase without complication, unspecified asthma severity, unspecified whether persistent (HCC) Start: 03-01-2025 End: 03-01-2025 Patient encounter procedure [facility] Comment on above: Arrived Start: 01-22-2025 End: 01-22-2025 Patient encounter procedure 01/22/2025 10:30 AM EDT Office Visit [facility] [address] [place] [address] Mathew Kurtz DO [address] [place] [address] Arrived [facility] Comment on above: Arrived Start: 12-04-2024 End: 12-04-2024 Patient encounter procedure 12/04/2024 10:30 AM EDT Office Visit [facility] [address] [place] [address] Mathew Kurtz DO [address] [place] [address] Arrived [facility] 230 Comment on above: Arrived Start: 08-31-2024 End: 08-31-2024 Patient encounter procedure [facility] Comment on above: Arrived Start: 08-03-2024 End: 08-03-2024 Patient encounter procedure 08/03/2024 3:20 PM EST Office Visit [facility] [address] [place] [phone] Margarita Kang MD [address] [facility] [address] [place] [address] [place] [id number] [facility] Start: 07-27-2024 End: 07-27-2024 Professional / ancillary services management 07/27/2024 2:00 PM EST Ancillary Procedure [facility] [address] [place] [address] [facility] Start: 07-13-2024 End: 07-13-2025 US Pelvis transvaginal US pelvis transvaginal Imaging Routine Encounter for IUD insertion Expected: 07/13/2024 (Approximate), Expires: 07/13/2025 [facility] Work Phone: Comment on above: Expected: 07/13/2024 (Approximate), Expires: 07/13/2025 Start: 07-13-2024 End: 07-13-2024 Patient encounter procedure 07/13/2024 10:30 AM EST Procedure Visit [facility] [address] [place] [address] Karon Quiroga DO [address] [place], [place] [phone] [facility] Start: 06-26-2024 End: 06-26-2024 Clinical Support 06/26/2024 9:10 AM EDT Clinical Support [facility] [address] [place] [phone] [facility] Start: 06-22-2024 End: 06-22-2024 Patient encounter procedure 06/22/2024 8:30 AM EDT Office Visit [facility] [address] [facility] [place] [address] Karon Quiroga, DO [address] [facility] [place] [address] [place] [address] Arrived [facility] Comment on above: Arrived Start: 06-15-2024 End: 06-15-2024 Patient encounter procedure [facility] Comment on above: Arrived Start: 05-18-2024 End: 05-18-2024 Patient encounter procedure [facility] Comment on above: Arrived Start: 04-26-2024 Influenza vaccination Influenza Vacc ine (#1) [facility] Start: 04-20-2024 End: 04-20-2024 Patient encounter procedure 04/20/2024 2:10 PM EDT Office Visit [facility] [address] [facility] [place] [phone] Karon Quiroga, DO [address] [facility] [place] [address] Arrived [facility] Comment on above: Arrived Start: 04-20-2024 End: 04-20-2025 Antithrombin III Antithrombin III Lab Routine Irregular menstrual cycle Bleeding disorder (CMS/HCC) Expected: 04/20/2024 (Approximate), Expires: 04/20/2025 [facility] Comment on above: Expected: 04/20/2024 (Approximate), Expires: 04/20/2025 Start: 04-20-2024 End: 04-20-2025 Beta-2 glycoprotein antibodies Beta-2 glycoprotein antibodies Lab Routine Irregular menstrual cycle Bleeding disorder (CMS/HCC) Expected: 04/20/2024 (Approximate), Expires: 04/20/2025 [facility] Comment on above: Expected: 04/20/2024 (Approximate), Expires: 04/20/2025 Start: 04-20-2024 End: 04-20-2025 Cardiolipin antibody, IgG Cardiolipin antibody, IgG Lab Routine Irregular menstrual cycle Bleeding disorder (CMS/HCC) Expected: 04/20/2024 (Approximate), Expires: 04/20/2025 [facility] Comment on above: Expected: 04/20/2024 (Approximate), Expires: 04/20/2025 Start: 04-20-2024 End: 04-20-2025 Cardiolipin antibody, IgM Cardiolipin antibody, IgM Lab Routine Irregular menstrual cycle Bleeding disorder (CMS/HCC) Expected: 04/20/2024 (Approximate), Expires: 04/20/2025 [facility] Comment on above: Expected: 04/20/2024 (Approximate), Expires: 04/20/2025 Start: 04-20-2024 End: 04-20-2025 DRVVT DRVVT Lab Routine Irregular menstrual cycle Bleeding disorder (CMS/HCC) Expected: 04/20/2024 (Approximate), Expires: 04/20/2025 [facility] Comment on above: Expected: 04/20/2024 (Approximate), Expires: 04/20/2025 Start: 04-20-2024 End: 04-20-2025 Factor 5 leiden Factor 5 leiden Lab Routine Irregular menstrual cycle Bleeding disorder (CMS/HCC) Expected: 04/20/2024 (Approximate), Expires: 04/20/2025 [facility] Work Phone: Comment on above: Expected: 04/20/2024 (Approximate), Expires: 04/20/2025 Start: 04-20-2024 End: 04-20-2025 Protein [Mass/volume] in Serum or Plasma Protein, total Lab Routine Irregular menstrual cycle Bleeding disorder (CMS/HCC) Expected: 04/20/2024 (Approximate), Expires: 04/20/2025 [facility] Comment on above: Expected: 04/20/2024 (Approximate), Expires: 04/20/2025 Start: 04-20-2024 End: 04-20-2025 Protein C activity Protein C activity Lab Routine Irregular menstrual cycle Bleeding disorder (CMS/HCC) Expected: 04/20/2024 (Approximate), Expires: 04/20/2025 [facility] Comment on above: Expected: 04/20/2024 (Approximate), Expires: 04/20/2025 Start: 04-20-2024 End: 04-20-2025 Protein S antigen, free Protein S antigen, free Lab Routine Irregular menstrual cycle Bleeding disorder (CMS/HCC) Expected: 04/20/2024 (Approximate), Expires: 04/20/2025 [facility] Comment on above: Expected: 04/20/2024 (Approximate), Expires: 04/20/2025 Patient Education Migraines (DC) [facility] Work Phone: Patient referral [facility] Work Phone: Immunizations Immunization Date Immunization Notes Care Provider Yogi martinez 05-25-2020 influenza virus vacc ine, unspecified formulation Karon Quiroga DO Work Phone: [facility] Payers Date Payer Category Payer Self-pay [id number] 2022 Private Health Insurance [employer] [id number] 2022 Unknown [employer] [id number] 2022-Present [address] [place] [address] [id number] 2022 Unknown [id number] 2004 Unknown [id number] [id number]. 1259 2004 Unknown [id number] 2.16.840.1.736492.3.579.2. 1259 2004 Unknown [id number] 2.16.840.1.113101.3.579.2. 1259 2004 Unknown [id number] 2.16.840.1.805790.3.579.2. 125 2004 Unknown [id number] 2.16.840.1.521898.3.579.2. 1258 2004 Unknown [id number] 2.16.840.1.117217.3.579.2. 1258 2004 Unknown [id number] 2.16.840.1.783493.3.579.2. 1258 2004 Unknown [id number] 2.16.840.1.800986.3.579.2. 125 2004 Unknown [id number] 2.16.840.1.264301.3.579.2. 125 2004 Unknown [id number] 2.16.840.1.705093.3.579.2. 1259 2004 Unknown [id number] 2.16.840.1.021296.3.579.2. 1258 2004 Unknown [id number] 2.16.840.1.358556.3.579.2. 125 2004 Unknown [id number] 2.16.840.1.919042.3.579.2. 1258 2004 Unknown [id number] 2.16.840.1.248201.3.579.2. 125 Unknown [id number] [id number]. 531 Social History Date Type Detail Facility Start: 01-25-2023 End: 11-14-2023 Tobacco smoking status NHIS Never smoked tobacco (finding) [facility] Start: 2005 Sex Assigned At Female [facility] Start: 01-25-2023 Tobacco use and exposure Smokeless tobacco non-user [facility] Start: 05-18-2024 End: 03-01-2025 Alcoholic beverage intake Lifetime non-drinker (finding) [facility] Start: 05-18-2024 End: 01-22-2025 History of Social function [facility] Start: 05-18-2024 End: 01-22-2025 Tobacco use panel [facility] Start: 01-27-2023 Gender identity Identifies as female gender (finding) [facility] Start: 01-27-2023 Sexual orientation Heterosexual (finding) [facility] Functional Status Date Assessment Result Facility 01-22-2025 Patient Health Quest ionnaire 2 item (PHQ-2) [Reported] [facility] Clinical Notes 04-20-2024 to 03-03-2025 Ai Tapia DO - 03/03/2025 9:00 AM Kelvin Kang MD - 03/01/2025 8:00 AM Ralf Andrade NP - 02/14/2025 9:05 AM Aravind Kurtz DO - 01/22/2025 10:30 AM EDT Note Date & Type Note Facility 03-03-2025 History of Present illness Narrative Images from the original note were not included. Carlene Alamo presents today for evaluation in regards to asthma. She was referred by her primary care provider. She does give a history of shortness of breath over last few years. She was diagnosed with COVID in 2019. She states since that time she has noticed some increasing symptoms of shortness of breath. She does noted mostly with exertion but does note some with talking as well. She has been tried on Trelegy as well as albuterol by her primary care provider. However she has not notice much change with these medications. She denies any current complaints of cough, fevers, chills, sweats, chest pain, or chest pressure. She states she has not undergone any cardiac evaluation. She did have PFTs and imaging performed prior to today's office visit. She denies any other complaints at this time. Allergies Allergen Reactions Fisher (Diagnostic) GI intolerance Cyproheptadine Other Penicillin G Benzathine Amoxicillin Rash Penicillins Rash Current Outpatient Medications Medication Sig Dispense Refill Albuterol-Budesonide (Airsupra) 90-80 MCG/ACT aerosol Inhale 2 puffs every 4 (four) hours if needed (SOB or wheezing) 10.7 g 5 levothyroxine (Synthroid, Levoxyl) 125 MCG tablet TAKE 1 TABLET (125 MCG) BY MOUTH IN THE MORNING. TAKE BEFORE MEALS. 90 tablet 0 meloxicam (Mobic) 15 MG tablet Take 15 mg by mouth Daily Nurtec 75 MG tablet dispersible Current Facility-Administered Medications Medication Dose Route Frequency Provider Last Rate Last Admin Levonorgestrel intrauterine device 52 mg 52 mg Intrauterine Continuous Karon Junaid, DO 52 mg at 07/13/24 1056 Past Medical History: Diagnosis Date ADHD (attention deficit hyperactivity disorder) Anxiety Chronic sinusitis, unspecified 02/12/2023 Alba's disease Menorrhagia Migraines Seasonal allergies Thyroid disease Vitamin D deficiency 02/12/2023 Past Surgical History: Procedure Laterality Date MI FOREARM/WRIST SURGERY UNLISTED fatty tissue removed from rt arm Family History Problem Relation Name Age of Onset Learning disabilities Mother Other (thyroid) Mother Endometriosis Mother Alcohol abuse Father Depression Father No Known Problems Brother Social History Tobacco Use Smoking status: Never Smokeless tobacco: Never Substance Use Topics Alcohol use: Never BP 122/82 Pulse 95 Wt 129 lb SpO2 95% BMI 22.14 kg/m Exam: Heart: regular rate Lungs: clear to auscultation bilaterally, no wheezes/rales/rhonchi, no resp distress Extremities: no edema noted, no visible rashes Neuro: alert, oriented x3 Imaging Reviewed: Images and report of chest x-ray from December 2024 reviewed--diffuse small airway prominence with physiologic variation for age though could reflect infectious/inflammatory bronchitis or bronchiolitis PFT's from December 2024 reviewed--FVC 3.13 L (80 %), FEV1 2.87 L (84 %), ratio 92 %, no significant bronchodilator response, no air trapping or hyperinflation present, normal DLCO Assessment/Plan: Shortness of breath -- we did review her PFTs and imaging at today's office visit. Her PFTs do not demonstrate any evidence of obstructive airways. She states her symptoms started after she had COVID in 2019. At this time we discussed adjustment of her inhaled regimen. She was given Airsupra at today's office visit. A prescription was sent to the pharmacy. She was also given a coupon card. She has not noticed improvement with any maintenance medication. She was tried on Trelegy by her primary care provider. She is also not notice any change with use of albuterol. Given that her PFTs do not demonstrate any significant change, it may be worthwhile investigating a possible cardiac etiology. This was discussed with the patient at today's office visit. Her chest x-ray does demonstrate evidence of small airway prominence that could be related to infectious/inflammatory bronchitis. Given this she will be tried on Airsupra. She does not notice any improvement then I would suggest exploring other avenues for her current complaints and symptoms. She will follow here in a few months time to reassess her symptoms with the use of air supra. Follow up in about 3 months (around 06/03/2025) for SOB. Ai Tapia DO documented in this encounter [facility] 03-01-2025 History of Present illness Narrative Images from the original note were not included. CHIEF COMPLAINT REASON FOR VISIT: Follow up for migraines. Patient states she only takes Nurtec and she has not really paid much attention to how many migraines she has. They are more controlled than before. She states that she only gets a couple a month. Idania Alamo is a 19 y.o. female who presents for Migraine and ADHD History of Present Illness The patient presents for evaluation of migraines and knee pain. She reports a slight decrease in the frequency of her migraines, which now occur approximately once a week. Nurtec is used as needed to manage these headaches, and it is effective most of the time. However, on particularly severe days, the medication does not fully alleviate the symptoms, leaving a residual headache. Previously, she experienced headaches every other day or had episodes lasting up to 4 days, with only a day's respite in between. This pattern persisted for about 4 to 5 months. Her sleep quality is generally good. She also mentions that her knee was causing discomfort recently, but the pain subsided before she could take meloxicam. She has 2 full bottles of this medication at home. She has not sustained any injuries to her knee and has undergone scans that revealed a higher kneecap position on one side. She is unaware of any dislocations, although she used to be more flexible. SOCIAL HISTORY: Sleep: She reports generally good sleep quality. MEDICATIONS CURRENT MEDS: Nurtec As needed Meloxicam Review of Systems Const: Denies appetite change, fever, chills. Allergy: Denies medication reaction. Ocular: Denies visual acuity change. ENT: Denies hearing change. Endoc: Denies weight loss. Resp: Denies dyspnoea, wheezing. Cardiac: Denies angina, palpitations. GI: Denies nausea, vomiting. Haem: Denies bleeding. : Denies incontinence. MSK: Denies arthralgias, joint oedema. Derm: Denies rash, hair loss. Neuro: Denies ataxia, tremor. Also see HPI for elements of ROS documented therein and for details of positive findings, which shall supersede the foregoing. Objective Blood pressure 116/84, height 5' 4 , weight 127 lb 6.4 oz. Physical Exam Neck: Neck mobility is good. Musculoskeletal: Right knee pain resolved. GENERAL EXAMINATION Appearance: in no acute distress, well developed, well nourished. Head: normocephalic, atraumatic. Eyes: pupils equal, round, reactive to light and accommodation. Ears: normal. Mouth: mucosa moist. Throat: clear. Neck: neck supple, full range of motion, no cervical lymphadenopathy. Skin: no suspicious lesions, warm and dry. Heart: no murmurs, regular rate and rhythm, S1, S2 normal. Lungs: clear to auscultation bilaterally. Abdomen: normal, bowel sounds present, soft, nontender, nondistended. Extremities: no clubbing, cyanosis, or edema. NEUROLOGICAL EXAMINATION Mental Status: The patient is alert and oriented to person, place, and time. Except as noted, thought content, form, and comprehension was normal. Phonation, articulation, resonance, and prosody are normal. Cranial Nerves: Pupils were 4.0 millimeters, equal, round, and reactive to light and accommodation, both directly and consensually. Visual abebe were full by confrontation. There was no ptosis; extra-ocular movements were full; and there was no nystagmus. Funduscopic exam is normal. Masseters are of normal strength. Facial movement is normal. Hearing is grossly intact. There is no dysarthria. The gag reflex is equal bilaterally. Sternocleidomastoids and trapezii are of normal strength. The tongue protrudes in the midline. Motor: Muscle testing was performed in all four extremities, including at least calender roll operator, finger abductors, biceps, triceps, deltoid, toe flexors and extensors, tibialis anterior, triceps surae, quadriceps femoris, biceps femoris, and iliopsoases. Tone is normal. Muscle bulk is normal. Fasciculations are not seen . Pronator drift was not evident. Sensory: Sensation to touch, temperature, and vibration was normal in the arms, legs and face. Romberg is negative. Reflexes: Biceps, triceps, brachioradialis are 2/4 bilaterally. Patellar and Achilles reflexes are 2/4 bilaterally. Plantar responses were flexor bilaterally. Coordination: Dysmetria and dysdiadochokinesia are absent. Tremor is absent; dystonia is absent; chorea is absent. Gait And Station: Station and gait are normal. Apraxia and spasticity are not evident. Arm swing is normal. Toe, heel, and tandem walking are performed without difficulty. Musculoskeletal: Trigger-point tenderness was absent. There is no spasm of the trapezii or paraspinals. Results Assessment & Plan 1. Migraines. The frequency of migraines has decreased to approximately once a week. Nurtec is effective in managing the majority of her migraines, although it does not completely alleviate symptoms during severe episodes. She is advised to continue using Nurtec as needed. If Nurtec is insufficient, she should take meloxicam as an adjunctive treatment. A prescription refill for Nurtec will be provided, extending for 6 months unless new symptoms arise. 2. Knee pain. She reports that her knee pain has improved and did not require the use of meloxicam. She is advised to keep meloxicam on hand for future use if needed. Follow-up The patient will follow up in 6 months or sooner if necessary. This clinical note was created utilizing [facility] documentation system. All information has been thoroughly reviewed, corrected as necessary, and authenticated by the provider to ensure accuracy and completeness. On occasion, [facility] documentation system erroneously drops words or replaces a spoken word with a similar sounding word. Please notify with any questions or concerns regarding this clinical note. documented in this encounter [facility] 02-14-2025 History of Present illness Narrative Images from the original note were not included. [address] , [address] [facility] [place], [address] P: [phone] F: [phone] HPI Historian of HPI: patient Carlene Alamo is a 19 y.o. female who presents today to the Urgent Care with the following complaints and denials which have been present for 3 months. Pt c/o red spots on b/l hands. Pt states it started with her thumb but now has moved to other fingers. 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 ROS A complete system ROS was performed and negative aside from the pertinent positives noted in the HPI and PE. Visit Vitals BP 108/70 Pulse 71 Temp 97.5 F SpO2 97% OB Status Having periods Smoking Status Never PHYSICAL EXAM Physical Exam Constitutional: Appearance: Normal appearance. HENT: Head: Normocephalic. Mouth/Throat: Mouth: Mucous membranes are moist. Eyes: Pupils: Pupils are equal, round, and reactive to light. Cardiovascular: Rate and Rhythm: Normal rate. Pulmonary: Effort: Pulmonary effort is normal. Skin: General: Skin is warm and dry. Comments: R thumb with peeling of skin, multiple tiny blood blisters with surrounding redness. No active drainage. R pinky with the start of a blister near the nail bed. No active drainage, Neurological: Mental Status: She is alert and oriented to person, place, and time. Psychiatric: Mood and Affect: Mood normal. TREATMENT PLAN 1. 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 I will start her on Bactrim for 7 days. She has been using Triamicinolone cream which does help a bit I want her to continue that twice a day for 5 days while on the antibiotic. She is working on not picking at the skin. Keep the area clean and dry. Continue with gloves when working. I did advise I want her to follow with dermatology if this is not getting better. - sulfamethoxazole-trimethoprim (Bactrim) 200-40 MG/5ML suspension; Take 10 mL twice a day for 7 days Dispense: 140 mL; Refill: 0 2. 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 Jared Andrade NP documented in this encounter [facility] 01-22-2025 History of Present illness Narrative Images from the original note were not included. Carlene Alamo is a 19 y.o. female presents with chief complaint of Chief Complaint Patient presents with Leg Pain Rash Carlene was seen today for leg pain and rash. Diagnoses and all orders for this visit: Patellofemoral pain syndrome of right knee - meloxicam (Mobic) 15 MG tablet; Take 1 tablet (15 mg) by mouth once per day Right knee pain, unspecified chronicity - XR knee 3 views right SOB (shortness of breath) Assessment & Plan Patellofemoral syndrome. The differential diagnosis was reviewed, and patellofemoral syndrome is suspected to be causing her symptoms. X-rays will be obtained to further evaluate the alignment of her knee and check for any patellar subluxation. She will be started on meloxicam 15 mg to take once daily for a few days if experiencing pain. On days without pain, there is no need to take the medication. Side effects of meloxicam were reviewed. Reactive airway disease/shortness of breath. She recently had pulmonary function tests (PFTs) done and is scheduled for a chest x-ray. A sld educational aide consultation is planned for early February 2025. She will trial Trelegy 100/62.5/25 mcg, taking one puff daily to see if there is any improvement in her symptoms. Side effects of Trelegy were reviewed. MEDICATION SUMMARY: Medication Changes As of 01/22/2025 11:26 AM Refills Start Date End Date Added: meloxicam (Mobic) 15 MG tablet 3 01/22/2025 02/21/2025 Take 1 tablet (15 mg) by mouth once per day - Oral Medication List at End of Visit As of 01/22/2025 11:26 AM Refills Start Date End Date albuterol HFA (Ventolin HFA) 90 mcg/act inhaler 3 12/04/2024 01/22/2025 Inhale 2 puffs every 6 (six) hours if needed for wheezing or shortness of breath - Inhalation Levonorgestrel intrauterine device 52 mg -- 07/13/2024 07/12/2029 52 mg, Intrauterine, Continuous Clinic-administered medication levothyroxine (Synthroid, Levoxyl) 125 MCG tablet 0 09/01/2024 01/22/2025 TAKE 1 TABLET (125 MCG) BY MOUTH IN THE MORNING. TAKE BEFORE MEALS. - Oral meloxicam (Mobic) 15 MG tablet 3 01/22/2025 02/21/2025 Take 1 tablet (15 mg) by mouth once per day - Oral Nurtec 75 MG tablet dispersible -- 11/30/2024 -- No prior authorization was found for this prescription. Found prior authorization for another prescription for the same medication: Approved Patient-reported medication MATHEW KURTZ D.O. This note was entered using [employer]. Grammatical and dictation errors maybe present in translation *I have reviewed and reconciled the history and medication list with the patient today* History of Present Illness C/o right knee pain x years- comes and goes. Pain has been more constant lately. Denies injury. Describes pain as a dull ache. Pain starts at knee and will radiate down the lateral aspect of leg to ankle. Knee will swell on occasion. Denies locking or giving out. Has tried a knee brace in the past which only helped with swelling. Has not been taking anything for pain. NO imaging. -Has appt with General Matcher in March 03 Will be getting xray done The patient is a 19-year-old female who presents to the office today with right knee pain that has been ongoing for years. She reports no injury to the knee. The pain is intermittent and exacerbated by smoking. She has tried using a knee brace, and the pain mostly radiates down the arm. She first sought medical attention for her knee pain at the age of 13 or 14, but the pain had subsided by the time of the appointment. The pain is intermittent, with periods of relief followed by severe discomfort. She describes the pain as unusual and constant, located primarily below the kneecap, with a faint radiating sensation extending downwards and causing ankle discomfort. The most recent episode of severe pain occurred this week during work. The pain is somewhat bothersome currently, but not significantly so. She reports occasional popping sounds when bending her knee, but these are infrequent. She has attempted to manage the pain with various types of braces and medication, although she does not recall the specific names of the drugs. The pain is absent for the majority of the time, but when present, it is intense. She reports no improvement in her breathing following the use of albuterol. She does not experience chest tightness but describes a sensation of constriction in her throat, as if her airway is narrowed. She continues to experience shortness of breath during physical activity. MEDICATIONS Current: Albuterol SUBJECTIVE: Current Medications: Allergies/Social History: ROS Current Outpatient Medications Medication Instructions albuterol HFA (Ventolin HFA) 90 mcg/act inhaler 2 puffs, Inhalation, Every 6 hours PRN levothyroxine (SYNTHROID, LEVOXYL) 125 mcg, Oral, Daily before breakfast meloxicam (MOBIC) 15 mg, Oral, Daily TPN Nurtec 75 MG tablet dispersible Allergies Allergen Reactions Fisher (Diagnostic) GI intolerance Cyproheptadine Other Penicillin G Benzathine Amoxicillin Rash Penicillins Rash Social History Tobacco Use Smoking status: Never Smokeless tobacco: Never Vaping Use Vaping status: Never Used Substance Use Topics Alcohol use: Never Review of Systems Constitutional: Negative for fatigue. HENT: Negative for rhinorrhea. Respiratory: Positive for cough and shortness of breath. Cardiovascular: Negative for chest pain. Gastrointestinal: Negative for abdominal distention. Musculoskeletal: Positive for arthralgias and gait problem. Negative for joint swelling. Skin: Negative for rash. Neurological: Negative for dizziness. All other systems reviewed and are negative. Past Medical History: Surgical History: Depression Screen/FHx Past Medical History: Diagnosis Date ADHD (attention deficit hyperactivity disorder) (CMS/HCC) Anxiety Chronic sinusitis, unspecified 02/12/2023 Alba's disease (CMS/HCC) Menorrhagia Migraines (CMS/HCC) Seasonal allergies Thyroid disease (CMS/HCC) Vitamin D deficiency 02/12/2023 Past Surgical History: Procedure Laterality Date MI FOREARM/WRIST SURGERY UNLISTED fatty tissue removed from rt arm Depression: Not at risk (01/22/2025) PHQ-2 PHQ-2 Score: 0 Family History Problem Relation Name Age of Onset Learning disabilities Mother Other (thyroid) Mother Endometriosis Mother Alcohol abuse Father Depression Father No Known Problems Brother OBJECTIVE: 01/22/2025 10:17 AM 12/04/2024 10:51 AM 09/19/2024 9:07 AM 08/31/2024 8:14 AM 07/13/2024 11:06 AM 06/26/2024 9:18 AM 06/22/2024 8:35 AM Vitals BMI 21.46 kg/m2 21.28 kg/m2 21.46 kg/m2 21.66 kg/m2 21.28 kg/m2 20.94 kg/m2 21.46 kg/m2 BSA (m2) 1.6 m2 1.59 m2 1.6 m2 1.61 m2 1.59 m2 1.58 m2 1.6 m2 Systolic 102 128 110 135 102 110 110 Diastolic 68 88 80 84 68 72 76 Heart Rate 82 101 SpO2 99 % 98 % Temp 97 F 97.9 F 98.4 F Height (in) 5' 4 5' 4 5' 4 5' 4 Weight (lb) 125 124 125 126.2 124 122 125 Visit Report Report Report Report Report Report Physical Exam General Appearance: Alert and oriented. Pleasant affect. No acute distress. Well nourished. Head: Atraumatic normal cephalic. No masses or swelling. Eyes: EOMI, sclera white, conjunctiva clear, no injection. Pupils relatively equal size. Ears: External ears normal. No signs or trauma or infection. Nose: Nasal mucosal pink and moist, No discharge or congestion. Normal appearance of the soft tissue of the nose. Throat: Lips moist, Teeth and gums in good condition. Neck: Supple, no obvious range of motion deficits, no swelling or pain.ee Musculoskeletal: The knee exhibits full range of motion. There is some pain and popping from the patellofemoral joint. ACL and PCL collateral sign are intact. Negative Jelly's test. Some pain is noted upon palpation of the anterior knee. Positive patellar grind test. Extremities: No swelling, no deformity. Skin: Warm and dry, no rashes. Neurological: Cranial nerves II-VII grossly intact, no gross neurologic abnormalities or focal defects. Psychiatric: Cooperative, pleasant, no signs of major mood disorder. documented in this encounter [facility] 12-04-2024 History of Present illness Narrative Images from the original note were not included. Carlene Alamo is a 19 y.o. female presents with chief complaint of Chief Complaint Patient presents with discuss thyroid Carlene was seen today for discuss thyroid. Diagnoses and all orders for this visit: Reactive airway disease without complication, unspecified asthma severity, unspecified whether persistent (CMS/HCC) - albuterol HFA (Ventolin HFA) 90 mcg/act inhaler; Inhale 2 puffs every 6 (six) hours if needed for wheezing or shortness of breath Alba's disease (CMS/HCC) Migraine without aura and without status migrainosus, not intractable (CMS/HCC) Nausea Assessment & Plan Hypothyroidism. A comprehensive discussion was held regarding various strategies for medication administration. Despite the recommendation to take Synthroid on an empty stomach, she will attempt to take it with food to mitigate gastrointestinal discomfort. If this approach proves tolerable, blood work will be conducted in 2 months. If intolerance persists, a prescription for brand name Synthroid will be considered. Shortness of breath. Differential diagnosis was reviewed. An albuterol inhaler will be prescribed for use as needed. If significant improvement is noted but consistent use of the inhaler is required, pulmonary function testing will be considered. MATHEW KURTZ D.O. This note was entered using [employer]. Grammatical and dictation errors maybe present in translation *I have reviewed and reconciled the history and medication list with the patient today* History of Present Illness Here to discuss thyroid medication. Pt states when taking 125mcg dose she becomes nauseous. Noticed nausea with 110mcg dose as well. Has not taken levothyroxine x 3 months. Since being off has not noticed any difference. TSH ordered 10/06/24- working on finding a different lab to have test done at d/t cost with [facility]. -C/O breathing issues x 5 years. Noticed breathing issues after having covid end of 2018. Symptoms: SOB all the time, and chest pain on occasion (mid chest or rib area). Denies wheezing. Has never been prescribed an inhaler. The patient is a 19-year-old female who presents for a wellness visit. Persistent Nausea - The patient attributes her persistent nausea to her Synthroid medication. - She has not been adhering to her prescribed regimen for the past 3 months. Shortness of Breath - The patient reports experiencing shortness of breath, even during periods of rest. - She does not engage in high-energy activities. - She reports no wheezing. - Occasionally, she experiences palpitations. - She was on iron last year, which may have made a difference with her breathing. Supplemental information: She also notes that she was menstruating daily for a year. MEDICATIONS Discontinued: Synthroid SUBJECTIVE: Current Medications: Allergies/Social History: Depression Screen/Family History: Current Outpatient Medications on File Prior to Visit Medication Sig Dispense Refill Nurtec 75 MG tablet dispersible levothyroxine (Synthroid, Levoxyl) 125 MCG tablet TAKE 1 TABLET (125 MCG) BY MOUTH IN THE MORNING. TAKE BEFORE MEALS. 90 tablet 0 [DISCONTINUED] imipramine (Tofranil) 25 MG tablet Take 25 mg by mouth at bedtime (Patient not taking: Reported on 12/04/2024) [DISCONTINUED] ondansetron ODT (Zofran-ODT) 4 MG disintegrating tablet DISSOLVE 1 TABLET ON THE TONGUE EVERY 6 HOURS NEEDED FOR NAUSEA AND VOMITING (Patient not taking: Reported on 12/04/2024) Current Facility-Administered Medications on File Prior to Visit Medication Dose Route Frequency Provider Last Rate Last Admin Levonorgestrel intrauterine device 52 mg 52 mg Intrauterine Continuous Karon Junaid, DO 52 mg at 07/13/24 1056 Allergies Allergen Reactions Fisher (Diagnostic) GI intolerance Cyproheptadine Other Penicillin G Benzathine Amoxicillin Rash Penicillins Rash Social History Tobacco Use Smoking status: Never Smokeless tobacco: Never Vaping Use Vaping status: Never Used Substance Use Topics Alcohol use: Never Depression: Not at risk (12/04/2024) PHQ-2 PHQ-2 Score: 0 Family History Problem Relation Name Age of Onset Learning disabilities Mother Other (thyroid) Mother Endometriosis Mother Alcohol abuse Father Depression Father No Known Problems Brother Past Medical History: Surgical History: ROS Past Medical History: Diagnosis Date ADHD (attention deficit hyperactivity disorder) (CMS/HCC) Anxiety Chronic sinusitis, unspecified 02/12/2023 Alba's disease (CMS/HCC) Menorrhagia Migraines (CMS/HCC) Seasonal allergies Thyroid disease (CMS/HCC) Vitamin D deficiency 02/12/2023 Past Surgical History: Procedure Laterality Date MI FOREARM/WRIST SURGERY UNLISTED fatty tissue removed from rt arm Review of Systems Constitutional: Negative for fatigue. HENT: Negative for rhinorrhea. Respiratory: Positive for chest tightness and shortness of breath. Negative for cough. Cardiovascular: Positive for chest pain. Gastrointestinal: Negative for abdominal distention. Skin: Negative for rash. Neurological: Negative for dizziness. All other systems reviewed and are negative. OBJECTIVE: 12/04/2024 10:51 AM 09/19/2024 9:07 AM 08/31/2024 8:14 AM 07/13/2024 11:06 AM 06/26/2024 9:18 AM 06/22/2024 8:35 AM 06/15/2024 2:55 PM Vitals BMI 21.28 kg/m2 21.46 kg/m2 21.66 kg/m2 21.28 kg/m2 20.94 kg/m2 21.46 kg/m2 20.77 kg/m2 BSA (m2) 1.59 m2 1.6 m2 1.61 m2 1.59 m2 1.58 m2 1.6 m2 1.57 m2 Systolic 128 110 135 102 110 110 102 Diastolic 88 80 84 68 72 76 62 Heart Rate 82 101 SpO2 99 % 98 % Temp 97.9 F 98.4 F Height (in) 5' 4 5' 4 5' 4 Weight (lb) 124 125 126.2 124 122 125 121 Visit Report Report Report Report Report Report GENERAL EXAM: Physical Exam General Appearance: Alert and oriented. Pleasant affect. No acute distress. Well nourished. Head: Atraumatic normal cephalic. No masses or tenderness. Eyes: EOMI, sclera white, conjunctiva clear, no injection. Pupils relatively equal size. Ears: External ears normal. No signs or trauma or infection. Nose: Nasal mucosal pink and moist, No discharge or congestion. Normal appearance of soft tissue of nose. Throat: Lips moist, Teeth and gums in good condition No exudate or drainage. Neck: Supple, normal rom of neck, no swelling or pain on palpitation. Respiratory: Lungs are clear to auscultation bilaterally. No wheezes, rhonchi, crackles. Cardiovascular: Regular rate and rhythm, no murmurs. Normal S1, S2. Musculoskeletal: No gross deformities or malalignment, normal ambulation. Extremities: No swelling, no deformity or acute findings. Skin: Warm and dry, no rashes. Neurological: Cranial nerves II-VII grossly intact, no gross neurologic abnormalities. Psychiatric: Cooperative, pleasant, no signs of mood disorder. documented in this encounter [facility] 08-10-2024 Telephone encounter Note Patient had to reschedule follow up appointment due to Covid - she is rescheduled for Aug 2024. Would like her Ubrelvy refill submitted please [facility] 08-10-2024 Miscellaneous Notes Patient had to reschedule follow up appointment due to Covid - she is rescheduled for Aug 2024. Would like her Ubrelvy refill submitted please documented in this encounter [facility] 07-13-2024 History of Present illness Narrative Associated Order(s): IUD Insertion Post-Procedure [...] 100 MG tablet ALLERGIES Allergies Allergen Reactions Fisher (Diagnostic) GI intolerance Cyproheptadine Other Penicillin G Benzathine Amoxicillin Rash Penicillins Rash SURGICAL HISTORY Past Surgical History: Procedure Laterality Date MI FOREARM/WRIST SURGERY UNLISTED fatty tissue removed from [...] nursing note reviewed. Exam conducted with a rack worker present. Vitals: Estimated body mass index is [...] by patient, parent, or legal power of attorney general - including discussion of procedure risks and [...] Karon Quiroga DO documented in this encounter [facility] 06-22-2024 History of Present illness Narrative Reason for Appointment: Patient ID: Calrene Alamo is a 19 y.o. female who [...] NAUSEA AND VOMITING ALLERGIES Allergies Allergen Reactions Fisher (Diagnostic) GI intolerance Cyproheptadine Other Penicillin G [...] HISTORY Past Surgical History: Procedure Laterality Date MI FOREARM/WRIST SURGERY UNLISTED fatty tissue removed from [...] nursing note reviewed. Exam conducted with a rack worker present. Vitals: Estimated body mass index is [...] Karon Quiroga DO documented in this encounter [facility] 05-18-2024 History of Present illness Narrative Images from the original note were not included. CHIEF COMPLAINT REASON FOR VISIT: migraines HPI: Carlene Alamo is a 18 y.o. female who presents for a follow up. She states she has the Topamax and nurtec but uses them both as needed. She states that the headaches are not as often. She only gets them about once a month now. She denies any new symptoms or concerns. Medications tried: Topamax, tizanidine, ketorolac, norco, prednisone, mobic, cyproheptadine, ibuprofen, CURRENT MEDICATIONS: ALLERGIES/DISCONTINUE MEDICATIONS Current Outpatient Medications Medication Instructions etonogestrel-ethinyl [...] 6 HOURS NEEDED FOR NAUSEA AND VOMITING Ubrogepant (Ubrelvy) 100 MG tablet 1 tablet, Oral, As needed Allergies Allergen Reactions Fisher (Diagnostic) GI intolerance Cyproheptadine Other Penicillin G Benzathine Amoxicillin Rash Penicillins Rash There are no discontinued medications. PAST MEDICAL HISTORY: SURGICAL/SOCIAL/FAMILY HISTORY DEPRESSION SCREEN: Past Medical History: Diagnosis Date ADHD (attention deficit hyperactivity disorder) (CMS/HCC) Anxiety Chronic sinusitis, unspecified 02/12/2023 Alba's disease (CMS/HCC) Menorrhagia Migraines (CMS/HCC) Seasonal allergies Thyroid disease (CMS/HCC) Vitamin D deficiency 02/12/2023 Past Surgical History: Procedure Laterality Date MI FOREARM/WRIST SURGERY UNLISTED fatty tissue removed from rt arm Social History Tobacco Use Smoking status: Never Smokeless tobacco: Never Vaping Use Vaping status: Never Used Substance Use Topics Alcohol use: Never Family History Problem Relation Name Age of Onset Learning disabilities Mother Other (thyroid) Mother Endometriosis Mother Alcohol abuse Father Depression Father No Known Problems Brother Depression: Not at risk (02/24/2024) PHQ-2 PHQ-2 Score: 0 REVIEW OF SYMPTOMS: Review of Systems Constitutional: Negative for chills, diaphoresis, fatigue and fever. HENT: Negative for ear pain, tinnitus and trouble swallowing. Eyes: Negative for photophobia and visual disturbance. Respiratory: Negative for cough and shortness of breath. Cardiovascular: Negative for palpitations and leg swelling. Gastrointestinal: Negative for abdominal pain and nausea. Genitourinary: Negative for difficulty urinating and urgency. Musculoskeletal: Negative for arthralgias, back pain, myalgias, neck pain and neck stiffness. Neurological: Positive for headaches. Negative for tremors, weakness, light-headedness and numbness. Psychiatric/Behavioral: Negative for agitation, confusion and suicidal ideas. OBJECTIVE: 05/18/2024 2:20 PM 04/20/2024 2:32 PM 04/03/2024 9:21 AM Vitals BMI 20.77 kg/m2 19.91 kg/m2 20.77 kg/m2 BSA (m2) 1.57 m2 1.54 m2 1.57 m2 Systolic 108 Diastolic 64 Height (in) 5' 4 Weight (lb) 121 116 121 Visit Report Report Report EXAM: Neurological Exam Mental Status Awake, alert and oriented to person, place and time. Oriented to person, place and time. Recent and remote memory are intact. Speech is normal. Language is fluent with no aphasia. Attention and concentration are normal. Cranial Nerves CN II: Visual acuity is normal. Visual abebe full to confrontation. CN III, IV, : Extraocular movements intact bilaterally. Normal lids and orbits bilaterally. Pupils equal round and reactive to light bilaterally. CN V: Facial sensation is normal. CN VII: Full and symmetric facial movement. CN VIII: Hearing is normal. CN XII: Tongue midline without atrophy or fasciculations. Motor Normal muscle bulk throughout. Normal muscle tone. Right Left Wrist flexion 5 5 Wrist extension 5 5 Right Left Deltoid 5 5 Biceps 5 5 Triceps 5 5 Wrist flexor 5 5 Wrist extensor 5 5 Glutei 5 5 Iliopsoas 5 5 Quadriceps 5 5 Gastrocnemius 5 5 Anterior tibialis 5 5 Posterior tibialis 5 5 Sensory Light touch is normal in upper and lower extremities. Pinprick is normal in upper and lower extremities. Vibration is normal in upper and lower extremities. Reflexes Right Left Brachioradialis 2+ 2+ Biceps 2+ 2+ Patellar 2+ 2+ Achilles 2+ 2+ Right Plantar: downgoing Left Plantar: downgoing Right pathological reflexes: Yvrose's absent. Ankle clonus absent. Left pathological reflexes: Yvrose's absent. Ankle clonus absent. Coordination [id number], rapid alternating movements and ijhm-su-efsk normal bilaterally without dysmetria. Gait Normal casual, toe, heel and tandem gait. Romberg is absent. PROCEDURE: NONE ASSESSMENT AND PLAN: Diagnoses and all orders for this visit: Chronic migraine with aura without status migrainosus, not intractable (CMS/HCC) Start Ubrogepant (Ubrelvy) 100 MG tablet; Take 1 tablet by mouth if needed (May repeat in 2 hours. Max of 2 tablets in 24 hours.) Samples provided. Follow up 3 months. documented in this encounter [facility] 04-20-2024 History of Present illness Narrative Reason for Appointment: Patient ID: Carlene Alamo is a 18 y.o. female who presents for Menstrual Problem (Pt present today for irregular cycles) Patient presents today for Consult appointment. MEDICATIONS Current Outpatient Medications Medication Instructions imipramine (TOFRANIL) 25 mg, Oral, Nightly levothyroxine (SYNTHROID) 100 mcg, Oral, Daily before breakfast medroxyPROGESTERone (Depo-Provera) 150 MG/ML injection INJECT 1 ML (150 MG) INTO THE SHOULDER, THIGH, OR BUTTOCKS EVERY 3 MONTHS ondansetron ODT (Zofran-ODT) 4 MG disintegrating tablet DISSOLVE 1 TABLET ON THE TONGUE EVERY 6 HOURS NEEDED FOR NAUSEA AND VOMITING ALLERGIES Allergies Allergen Reactions Fisher (Diagnostic) GI intolerance Cyproheptadine Other Penicillin G [...] HISTORY Past Surgical History: Procedure Laterality Date MI FOREARM/WRIST SURGERY UNLISTED fatty tissue removed from [...] nursing note reviewed. Exam conducted with a rack worker present. Vitals: Estimated body mass index is 19.91 kg/m as calculated from the following: Height as of 02/24/24: 5' 4 . Weight as of this encounter: 116 lb. BP: 108/64 No LMP recorded. Patient has had an injection. ASSESSMENT & PLAN ICD-10-CM 1. Irregular menstrual cycle N92.6 Patient presents today for irregular cycles. Patient voiced that she has had a cycle or some sort of spotting since May 2023 except for maybe a week. Discussed Depo Injection with patient and patient voiced that she prefers to continue Depo Provera. Discussed oral contraception, NuvaRing and control patch. Patient voiced that she is being treated for thyroid issues and is currently taking Levothyroxine 100mcg daily and has been given order by PCP to have follow up TSH. Patient will attempt to try NuvaRing and if it works well then patient can call office for refills. Documented by Dilma Monte LPN on behalf of: Karon Quiroga DO documented in this encounter [facility] Evaluation note No assessment inform ation available [facility] Work Phone: Evaluation note Diagnosis Irregular menstrual cycle- Primary documented in this encounter [facility]* Diagnosis Encounter for IUD insertion Insertion of intrauterine contraceptive device documented [facility] this encounter [facility]* Diagnosis Irregular menstrual cycle Bleeding disorder (CMS/HCC) Unspecified hemorrhagic conditions documented in this encounter [facility]* Diagnosis Chronic migraine with aura without status migrainosus, not intractable (CMS/HCC)- Primary documented in this encounter [facility]* Diagnosis Chronic migraine with aura without status migrainosus, not intractable (CMS/HCC)- Primary documented in this encounter [facility]* Diagnosis Reactive airway disease without complication, unspecified asthma severity, unspecified whether persistent (CMS/HCC)- Primary Alba's disease (CMS/HCC) Chronic lymphocytic thyroiditis Migraine without aura and without status migrainosus, not intractable (CMS/HCC) Nausea Nausea alone documented in this encounter [facility]* Diagnosis Patellofemoral pain syndrome of right knee- Primary Right knee pain, unspecified chronicity SOB (shortness of breath) Shortness of breath Reactive airway disease without complication, unspecified asthma severity, unspecified whether persistent (CMS/HCC) documented in this encounter [facility]* Diagnosis Finger infection- Primary Unspecified local infection of skin and subcutaneous tissue Peeling skin Dermatillomania in adult documented in this encounter [facility]* Diagnosis Chronic migraine with aura without status migrainosus, not intractable- Primary Attention deficit hyperactivity disorder (ADHD), predominantly inattentive type documented in this encounter [facility]* Diagnosis Reactive airway disease without complication, unspecified asthma severity, unspecified whether persistent (HCC) documented in this encounter [facility] Discharge instructions Additional Instructions Take Phenergan as prescribed for nausea vomiting. Increase your intake of fluids and rest. Take Carafate and omeprazole as prescribed. He can take Tylenol as needed for recurrent headache. Follow-up with neurologist below regarding your frequent migraines. Follow-up with the PCP for any persistent symptoms 5 to 7 days.[facility] Work Phone: Rekred for visit Narrative* Consultation (Routine) - Closed Specialty Diagnoses / Procedures Referred By Homero velazquez Referred To Contact Pulmonary Disease / Pulmonology Diagnoses Reactive airway disease without complication, unspecified asthma severity, unspecified whether persistent (HCC) Procedures MI OFFICE/OUTPATIENT NEW HIGH MDM 60 MINUTES Mathew Kurtz DO [address] [place] [address] Phone: tel: fax: Ai Tapia, [address] [place] [address] Referral ID Status Reason Start Date Expiration Date V isits Requested Visits Authorized [id number] Closed Specialty Services Required 12/10/2024 06/08/2025 1 1 [facility] Summary Purpose Family History No Family History Records FoundNo Family History Records FoundNo Family History Records Found Advance Directives Advance Directive Response Recorded Date/ Time Advance Directives No June 19, 2021 2:05pm Chief Complaint and Reason for Visit Chief Complaint vomiting blood Reason for Referral Specialty Diagnoses / Procedures Referred By Contmarion t Referred To Contact Diagnoses Chronic migraine with aura without status migrainosus, not intractable (CMS/[facility]) Margarita Kang MD [address] [place] [address] [place] [id number] Referral ID Status Reason Start Date Expiration Date V isits Requested Visits Authorized [id number] Pending Review 05/18/2024 11/14/2024 1 1 Additional Source Comments INFORMATION SOURCE (unrecogn ized section and content) DATE CREATED AUTHOR 03/13/2022 [facility] dical Specialist DATE CREATED AUTHOR AUTHOR'S ORGANIZ ATION 01/25/2025 [facility] DATE CREATED AUTHOR AUTHOR'S ORGANIZ ATION 03/04/2025 [facility] dical Specialists EP[employer] Care Teams (unrecognized sec tion and content) Team Status: Active Member Role Status Dates Mathew Kurtz DO Primary Care Provider Active Team Status: Inactive Member Role Status Dates Mathew Kurtz DO Primary Care Provider Active Start: November 14, 2023 End: November 15, 2023 Mathew Hawley DO Emergency Provider Active Start: November 14, 2023 End: November 15, 2023 Primer Inserting Machine Operator Relationship Specialty Start Date End Date Mathew Kurtz DO [address] [place] [address] PCP - General Family Medicine 01/28/23 Mathew Kurtz DO [address] [place] [address] PCP - Medical [employer] 08/26/08 08/25/99 [employer] Inserting Machine Operator Relationship Specialty Start Date End Date Mathew Kurtz DO [address] [place] [address] PCP - General Family Medicine 01/28/23 Mathew Kurtz DO [address] [place] [address] PCP - Medical [employer] 08/26/08 08/25/99 Primer Inserting Machine Operator Relationship Specialty Start Date End Date Mathew Kurtz, DO [address] [place] [address] PCP - General Family Medicine 01/28/23 Mathew Kurtz, DO [address] [place] [address] PCP - Medical [employer] 08/26/08 08/25/99 [employer] Inserting Machine Operator Relationship Specialty Start Date End Date Mathew Kurtz, DO [address] [place] [address] PCP - General Family Medicine 01/28/23 Mathew Kurtz, DO [address] [place] [address] PCP - Medical [employer] 08/26/08 08/25/99 Primer Inserting Machine Operator Relationship Specialty Start Date End Date Mathew Kurtz, DO [address] [place] [address] PCP - General Family Medicine 01/28/23 Mathew Kurtz, DO [address] [place] [address] PCP - Medical [employer] 08/26/08 08/25/99 Primer Inserting Machine Operator Relationship Specialty Start Date End Date Mathew Kurtz, DO [address] [place] [address] PCP - General Family Medicine 01/28/23 Mathew Kurtz, DO [address] [place] [address] PCP - Medical [employer] 08/26/08 08/25/99 Primer Inserting Machine Operator Relationship Specialty Start Date End Date Mathew Kurtz, DO [address] [place] [address] PCP - General Family Medicine 01/28/23 Mathew Kurtz, DO [address] [place] [address] PCP - Medical [employer] 08/26/08 08/25/99 Primer Inserting Machine Operator Relationship Specialty Start Date End Date aMthew Kurtz, DO [address] [place] [address] PCP - General Family Medicine 01/28/23 Mathew Kurtz, DO [address] [place] [address] PCP - Medical [employer] 08/26/08 08/25/99 Primer Inserting Machine Operator Relationship Specialty Start Date End Date Mathew Kurtz, DO [address] [place] [address] PCP - General Family Medicine 01/28/23 Mathew Kurtz, DO [address] [place] [address] PCP - [facility] [employer] 08/26/08 08/25/99 Primer Inserting Machine Operator Relationship Specialty Start Date End Date Mathew Kurtz, DO [address] [place] [address] PCP - General Family Medicine 01/28/23 Mathew Kurtz, DO [address] [place] [address] PCP - [facility] [employer] 08/26/08 08/25/99 Primer Inserting Machine Operator Relationship Specialty Start Date End Date Mathew Kurtz, DO [address] [place] [address] PCP - General Family Medicine 01/28/23 Mathew Kurtz, DO [address] [place] [address] PCP - [facility] [employer] 08/26/08 08/25/99 Primer Inserting Machine Operator Relationship Specialty Start Date End Date Mathew Kurtz, DO [address] [place] [address] PCP - General Family Medicine 01/28/23 Mathew Kurtz, DO [address] [place] [address] PCP - [facility] [employer] 08/26/08 08/25/99 Primer Inserting Machine Operator Relationship Specialty Start Date End Date Mathew Kurtz, DO [address] [place] [address] PCP - General Family Medicine 01/28/23 Mathew Kurtz, DO [address] [place] [address] PCP - [facility] [employer] 08/26/08 08/25/99 Primer Inserting Machine Operator Relationship Specialty Start Date End Date Mathew Kurtz, DO [address] [place] [address] PCP - General Family Medicine 01/28/23 Mathew Kurtz, DO [address] [place] [address] PCP - [facility] 08/26/08 08/25/99 Primer Inserting Machine Operator Relationship Specialty Start Date End Date Mathew Kurtz, DO [address] [place] [address] PCP - General Family [facility] 01/28/23 Mathew Kurtz, DO [address] [place] [address] PCP - [facility] 08/26/08 08/25/99 Primer Inserting Machine Operator Relationship Specialty Start Date End Date Mathew Kurtz, DO [address] [place] [address] PCP - General Family [facility] 01/28/23 Mathew Kurtz, DO [address] [place] [address] PCP - [facility] 08/26/08 08/25/99 Goals (unrecognized section and content) Goals may be documented in a n alternate section Reason for Visit (unrecogniz ed section and content) Reason Comments Contraception Reason Comments Contraception Pt present today for Mirena insertion Reason Comments Menstrual Problem Pt present today for irregular cycles Reason Comments discuss thyroid Reason Comments Leg Pain Rash Reason Comments Migraine ADHD FOR RECORDS PERTAINING TO PATIENTS WHO ARE [...] BE BASED ON THE PRIMARY CLINICAL RECORDS. [facility]. provides no warranty or guarantee of the accuracy or completeness of information in this document.
[2025-03-09] MEDS: ADACEL DIPH,PERTUSS(ACELL),TET VAC/PF 0.5 ML ADULT SYRINGE IM (19:33)
== END 2025-03-09 19:45 | disposition home or self-care (01) ==
PROVIDERS: Emergency Provider Emergency Medicine; PCP Family Medicine
DX: S61.213A Laceration without foreign body of left middle finger without damage to nail, initial encounter (principal); W26.8XXA Contact with other sharp object(s), not elsewhere classified, initial encounter; Z23 Encounter for immunization
CPT/HCPCS: 90471; 90715; 99283